=== PATIENT | female | born 1970 | race Caucasian/White ===

== ENCOUNTER 2022-06-26 09:53 | Outpatient (RCR) | payer OTHER, SELFPAY ==
--- NOTE | 2022-06-26 12:14 | PCM.WC.HP ---
History of Present Illness Date of Service: 06/26/22 Chief Complaint: Left distal posterior traumatic hematoma/ulcer History of Wound: 52 year old female presents to the wound healing center for evaluation of her left distal posterior leg ulcer that occurred on 05/31/22 while working at [employer]. 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 She states that it initially has a superficial wound with bruising. She was sent to [facility] for evaluation and they have been monitoring her injury. The bruising became more pronounced a couple days after she was seen at [facility]. She states that it has started to become very painful over the past couple weeks and worsened last week when she developed a black scab and now has redness surrounding the ulcer. She presents today to the wound center for further evaluation. She currently on Bactrim from her PCP for a UTI and she was told it would help with bacterial growth from the ulcer. She is denying and drainage from the ulcer. She initially was treating with hydrogen peroxide and antibiotic ointment. 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 She denies any other medical history. Progress of Wound: Left distal posterior leg ulcer with necrotic tissue present. Unable to stage ulcer. There is redness surrounding the ulcer along with swelling, especially on the lateral aspect of the necrotic tissue. The ulcer and the tissue surrounding the ulcer are very painful to light touch. She does not even want the ulcer measured due to the pain. There is a very small separation on the distal edge of the necrotic tissue that I was able to measure the depth which is 1 cm. Currently no drainage. PFSH Medical History no medical history no medical history Home Medications lansoprazole 15 mg capsule,delayed release (Prevacid) 30 mg PO 02/09/14 [History Last Taken Unknown] tramadol 50 mg tablet mg PO Q4H PRN PRN Pain 02/09/14 [History Last Taken Unknown] cholecalciferol (vitamin D3) 25 mcg (1,000 unit) capsule (Vitamin D3) mcg PO DAILY 06/26/22 [History Last Taken Unknown] ferrous sulfate 325 mg (65 mg iron) tablet (Iron (ferrous sulfate)) 325 mg PO DAILY 06/26/22 [History Last Taken Unknown] fluoxetine 20 mg capsule (Prozac) 20 mg PO DAILY 06/26/22 [History Last Taken Unknown] multivitamin 1 tab PO DAILY 06/26/22 [History Last Taken Unknown] levofloxacin 500 mg tablet 500 mg PO DAILY 14 days #14 tabs 06/27/22 [Rx Last Taken Unknown] Allergy/AdvReac Type Severity Reaction Status Date / Time dicyclomine HCl [From Bentyl] Allergy Other Verified 02/09/14 11:31 Surgical History History of partial gastrectomy Social History Smoking Status: Never smoker ROS Constitutional Constitutional: Reports systems reviewed and no addt'l complaints, except as documented; Denies fatigue, fever(s) or frequent falls Eyes Eyes: Reports none Cardiovascular Cardiovascular: Denies chest pain or dyspnea Respiratory/Chest Respiratory/Chest: Reports none Gastrointestinal Gastrointestinal: Reports as per HPI Genitourinary Genitourinary: Reports other Details: recovering from recent UTI, on bactrim Musculoskeletal Musculoskeletal: Reports extremity pain Integumentary Integumentary: Reports erythema, skin ulcer, skin swelling and wounds Neurologic Neurologic: Reports none Psychiatric Psychiatric: Reports none Endocrine Endocrinology: Reports none Hematologic/Lymphatic Hematologic/Lymphatic: Reports none Allergic/Immunologic Allergic/Immunologic: Reports none Vital Signs Vital Signs Vital Signs: 06/26/22 13:15 Pulse Rate 87 Respiratory Rate 16 Blood Pressure 117/75 Blood Pressure Mean 89 Blood Pressure Source Monitor Blood Pressure Position Sitting Blood Pressure Location Right Arm Oxygen Delivery Method Room Air Weight Weight: 150 lb Body Mass Index (BMI) 26.5 Physical Exam Const alert, oriented x3 and average body habitus General Appearance: cooperative and well kempt HEENT normocephalic Head and Scalp: atraumatic Eyes General Eye: normal appearance of both eyes Neck full ROM Lymph Lymphatic: no lymphedema noted Resp normal respiratory effort, normal air movement and clear to auscultation bilaterally Effort and Inspection: able to speak in complete sentences Cardio regular rate and regular rhythm Peripheral Pulses: dorsalis pedis pulses present left 2+ GI normal to inspection, nondistended, normoactive bowel sounds, soft to palpation and non-tender Back/Spine normal ROM Extremity normal capillary refill Peripheral Pulses: Yes dorsalis pedis pulses present left 2+ Skin Wound Narrative: Left distal posterior leg ulcer with necrotic scabbing in place surrounded by erythema and swelling. Extremely painful to light palpation. She constantly is moving her leg away to prevent it from being touched. There is a separation on the distal aspect of the eschar that able to measure the depth as 1 cm. Neuro oriented x3 and moves all extremities Psych mental status grossly normal, thought process normal and cooperative Debridement Note Debridement Note Wound debrided: distal posterior leg ulcer Laterality: Left Wound Grade/Stage: unstagable No debridement was completed: No debridement was completed today Post-Debridement Measurements and Additional Note: Post-Debridement Measurements/Treatment WC - Nurse 1 - General Ulcer Assessment Start: 06/26/22 13:12 Freq: Status: Active Protocol: TONIOpenBookJena Activity Type Activity Date Activity User E-sign Co-sign Detail Recorded Client Recorded Date Recorded By Document 06/26/22 13:15 [facility] [id number] 06/26/22 13:23 [facility] 06/26/22 13:15 - Today's Visit Information Type of service Follow-up Visit (Physician/NURSE PRACTITIONER ) Arrival Mode Ambulatory Transfer Assistance None Accompanied by Patient Identification Verified (Name & Yes ) Patient Requires Transmission-Based No Precautions Height and Weight Height 5 ft 3 in Weight 150 lb Weight in Pounds 150.0 lbs Weight Measurement Method Stated by Patient Body Mass Index (BMI) 26.5 BMI Classification Overweight BSA - Laura 1.71 Vital Signs Pulse Rate (60-100) 87 Pulse Location Monitor Respiratory Rate (12-18) 16 Respiratory rate source Observation Oxygen Delivery Method Room Air Blood Pressure (90/60-120/80) 117/75 Blood Pressure Mean 89 Source Monitor Position Sitting Blood Pressure Location Right Arm History Since Last Visit- (Skip if this is Patient's initial visit) Left Footwear Regular Shoe Right Footwear Regular Shoe Pain Scale: 0-10 Numeric Is Patient Pain Free? Yes Lower Extremity Assessment/ Foot Assessment/ Toe Nail Assessment Right -Posterior Tibial Palpable Yes -Posterior Tibial Doppler Multiphasic -Dorsalis Pedis Palpable Yes -Dorsalis Pedis Doppler Multiphasic -Extremity Color Pale -Hair Growth on Legs No -Hair Growth on Toes No -Temperature of Extremity Cool -Thick No -Discolored No -Deformed No -Improper Length & Hygeine No Left -Posterior Tibial Palpable Yes -Posterior Tibial Doppler Multiphasic -Dorsalis Pedis Palpable Yes -Dorsalis Pedis Doppler Multiphasic -Extremity Color Pale -Hair Growth on Legs No -Hair Growth on Toes No -Temperature of Extremity Cool -Thick No -Discolored No -Deformed No -Improper Length & Hygeine No Neuropathy Assessment Feet - Top Side and Bottom <Entered> (a) Communication Assessment Preferred language Greek Insurance Associate Required No Able to Read Yes Able to Write Yes Communication Tools None Right Hearing Abillity Normal Left Hearing Abillity Normal Visual Assistive Devices None Teaching Assessment Preferences Verbal,Written, Audio/Visual, Demonstration Barriers to Learning None Readiness To Learn Excellent Willingness to Engage in Self Management High Activies Readiness to Engage in Self Management High Activities Anxiety Level Calm Cooperation Cooperative Perception Coherent Interest in Health Problem Asks Questions Education Importance Acknowledges Need Does Patient Smoke tobacco or other No substances Smoking Status Never smoker Is Patient Diabetic No Functional Assessment Recent Decline in Ability to Perform Denies Any Declines 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 Cultural/Oriental Orthodox Needs that may affect No Treatment Plan Teaching: Wound Center *Welcome to the Wound Center -Person Taught Patient -Teaching Method Discussion -Response to teaching Verbalize understanding Welcome to the Wound Care Center Finnish (a) 1 - + WC - Nurse 1 - General Ulcer Measurement Start: 06/26/22 13:12 Freq: Status: Active Protocol: Activity Type Activity Date Activity User E-sign Co-sign Detail Recorded Client Recorded Date Recorded By Document 06/26/22 13:15 [facility] [id number] 06/26/22 13:23 [facility] 06/26/22 13:15 Wound Center Nurse 1 #1- L LOWER CALF CLUSTER -Combined with other wound No -Current Size (cm) - Length 4.5 -Current Size (cm) - Width 3.4 -Current Size (cm) - Depth 0.1 -Total Square Cm 15.30 -Date of Last Picture (Recall this 06/26/22 field) -Photo Taken Yes -Epithelialization None Present -Tunneling No -Undermining/Tunneling No -Circular Undermining No -Exudate Amt Medium -Exudate Type Serosanguineous -Wound Margin Distinct, Outline Attached -Granulation Amt None Present (0 %) -Slough/Fibrin Yes -Necrosis Amt Large (67-100%) -Necrotic Tissue Type Eschar -Texture (Nilsa-wound Skin Appearance) Assessed, Scarring -Moisture (Nilsa-wound Skin Appearance) Assessed -Color (Nilsa-wound Skin Appearance) Assessed, Erythema -Temperature (Nilsa-wound Skin No Abnormality Appearance) (Pt Warm) -Tenderness on Palpation (Nilsa-wound Yes Skin Appearance) -Ulcer Cleansing Rinsed/ Irrigated with Saline -Foul Odor after Cleansing No -Anesthetic Used 5% Lidocaine Gel -Wound Comment(s) WORKPLACE INJURY- TOW MOTOR RAN INTO HER Right Calf (cm) 35 Right Ankle (cm) 19.7 Left Calf (cm) 35 Left Ankle (cm) 20.2 - Nurse 2 - General Ulcer CM Notes Start: 06/26/22 13:12 Freq: Status: Active Protocol: Activity Type Activity Date Activity User E-sign Co-sign Detail Recorded Client Recorded Date Recorded By Document 06/26/22 13:48 [id number] 06/26/22 14:08 06/26/22 13:48 Wound Center Nurse 2 #1- L LOWER CALF CLUSTER -Correct Patient No -Correct Side, Site, Position No -Correct Procedure No -Procedure Performed No -Wound/Ulcer Outcome Not Healed Pain Scale: 0-10 Numeric Is Patient Pain Free? Yes - Nurse 3 - General Ulcer D/C NN Start: 06/26/22 13:12 Freq: Status: Active Protocol: Activity Type Activity Date Activity User E-sign Co-sign Detail Recorded Client Recorded Date Recorded By Document 06/26/22 14:47 [id number] 06/26/22 14:48 06/26/22 14:47 Wound Care Nurse 3 #1- L LOWER CALF CLUSTER -Ulcer Cleansing Rinsed/ Irrigated with Saline -Foul Odor after Cleansing No -Primary Dressing Applied Hysept ($) -Other Dressing dakins -Primary Dressing Covered/Secured with Dry Gauze & Roll Gauze, Secured with Tape -Other Covering Coban/juan jose Treatment Response Procedure Tolerated Well Pain Scale: 0-10 Numeric Is Patient Pain Free? Yes - Visit Discharge Discharge Condition Stable Ambulatory Status Ambulatory Transportation Private Auto Accompanied by Charges/Coding Visit Charges Office Visits / Consults: 43862 OV L4 Est Assessment/Plan Assessment/Plan (1) Contusion of left lower extremity: CODE(S): S80.12XA - Contusion of left lower leg, initial encounter (2) Abrasion of left lower extremity: CODE(S): S80.812A - Abrasion, left lower leg, initial encounter PLAN: Plan Patient evaluated at the wound center today. No debridement performed due to the amount of discomfort that patient was in. Will start Dakins 0.25% moistened gauze to the necrotic tissue daily covered with dry gauze. She may wash the area daily with soap and water. Place an JUAN JOSE wrap for compression. I suspect she will need an operative debridement. Will attempt to get approval from [facility] for stat consult to Dr. Patel for evaluation for a possible operative debridement. Explained to patient that the process of getting approval for medications and referrals. Instructed her to keep her leg elevated. She is not working this week due to the facility being closed for the holidays but I do not want her working/standing on her leg for long periods of time until she has further evaluation from Dr. Patel. Follow up at the wound center in one week. Greater than 35 minutes spent evaluating, treating, reviewing charts and documenting.
[2022-06-26 13:15] VITALS: BP 117/75; PULSE 87; RESP 16; BMI 26.5
== END 2022-06-30 23:59 | disposition home or self-care (01) ==
LOC: WC 09:53
PROVIDERS: PCP Student in an Organized Health Care Education/Training Program; Visit Provider Nurse Practitioner Family
DX: L97.829 Non-pressure chronic ulcer of other part of left lower leg with unspecified severity (principal); S80.12XS Contusion of left lower leg, sequela; S80.812S Abrasion, left lower leg, sequela; N39.0 Urinary tract infection, site not specified; V83 Occupant of special vehicle mainly used on industrial premises injured in transport accident
CPT/HCPCS: 99214; G0463

== ENCOUNTER → 2022-06-28 | Outpatient (CLI) | payer OTHER, SELFPAY ==
--- NOTE | 2022-06-28 13:13 | RAD_ITS ---
INDICATION: traumatic injury to left distal posterior leg EXAMINATION/TECHNIQUE: X-RAY - LEFT XR Tibia/Fibula 2 Views 2 VIEWS COMPARISON: Left ankle series same date FINDINGS: SOFT TISSUES: Focal soft tissue swelling posterior to the distal tibia with focal skin defect. No radiopaque foreign body. BONES/JOINTS: No acute fracture. Included joint spaces anatomically maintained. No sclerotic or destructive changes observed. RAD/Tibia & Fibula 2 Views IMPRESSION: No acute bony injury. Electronically Signed: Hermelindo Saini MD at 18:24 EST ,
--- NOTE | 2022-06-28 13:13 | RAD_ITS ---
INDICATION: traumatic hematoma distal posterior leg EXAMINATION/TECHNIQUE: X-RAY - LEFT XR Ankle Min 3 Views 3 VIEWS COMPARISON: None. FINDINGS: SOFT TISSUES: Focal soft tissue swelling posterior to the distal tibia and fibula with focal skin defect. No radiopaque foreign body. BONES/JOINTS: No acute fracture. Included joint spaces anatomically maintained. No sclerotic or destructive changes observed. RAD/Ankle min 3 Views IMPRESSION: No acute bony abnormality. Electronically Signed: Hermelindo Saini MD at 18:22 EST ,
== END | disposition home or self-care (01) ==
PROVIDERS: PCP Student in an Organized Health Care Education/Training Program; Referring Provider Nurse Practitioner Family; Visit Provider Nurse Practitioner Family
DX: S80.12XA Contusion of left lower leg, initial encounter (principal); S80.812A Abrasion, left lower leg, initial encounter
CPT/HCPCS: 73590; 73610

== ENCOUNTER 2022-07-05 14:49 | Observation (INO) | payer OTHER, SELFPAY ==
--- NOTE | 2022-07-04 21:52 | HP.PCM_ITS ---
History and Physical Date of Admission: 07/05/22 HISTORY OF PRESENT ILLNESS 52 year old female presents with a worsening traumatic hematoma to her left posterior leg near the ankle that she sustained on 05/31/22 while working at [employer].? She states a tow motor bumped into her and 8 pallets fell and pinched the back of her left leg.? Initially there was some bruising but the skin was intact.? She was seen at [facility] for monitoring her injury. ? The bruising progressively worsened over the next several days and developed overlying skin necrosis.? She denied fever.? She started developing increasing pain as the hematoma increased in size.? During this time she saw her PCP who treated her UTI with Bactrim.? She also started developing some surrounding erythema and was referred to the Wound Center on 06/26/22. ? She denied any drainage from this traumatic hematoma. ? ?At the Wound Center, it was very painful to the touch.? She states it is a burning nerve pain.? Dakin's dressing changes were started.? An x-ray was ordered on 06/28/22. ? It showed focal soft tissue swelling posterior to the distal tibia with focal skin defect. No radiopaque foreign body.? No acute fracture. Included joint spaces anatomically maintained. No sclerotic or destructive changes observed.?Levaquin antibiotics were added because of the risk of developing Pseudomonas which can be destructive to surrounding tissue, i.e., the Achilles tendon.? I was asked to evaluate this patient for surgical options for treatment. 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 Never smoker alcohol intake:? never substance use type:? does not use additional social history:? Does Not Take Aspirin Does Not Take Ibuprofen REVIEW OF SYSTEMS Constitutional -?Denies fatigue, fever(s) or frequent falls? Eyes -?Denies cataracts or glaucoma. Cardiovascular -?Denies chest pain or dyspnea Respiratory/Chest -?Denies shortness of breath or chronic cough.? Gastrointestinal -?Denies nausea, vomiting, diarrhea, or constipation. Genitourinary -?recovering from recent UTI, on bactrim Musculoskeletal -?Reports extremity pain Integumentary -?has traumatic hematoma left posterior leg near the ankle with overlying skin necrosis. Neurologic -?Has burning nerve pain in the area of the hematoma left posterior leg near the ankle.? Psychiatric -?Has depression.? PHYSICAL EXAMINATION General - Alert and Oriented HEENT - PERRL. EOMI.? Throat is clear. Neck - Supple and nontender.? No cervical adenopathy. Lungs - Clear to auscultation. Heart - Regular rate and rhythm. Abdomen - Soft and nondistended. Extremities - FROM. No axillary adenopathy.? Radial pulses are palpable. ? No inguinal adenopathy.? Dorsalis pedis pulses are palpable.? On left posterior leg near the ankle is a hematoma with surrounding erythema.? Overlying skin necrosis.? Tender to palpation.? No purulent drainage.? No fluctuance. Neuro - CN II-XII grossly intact. Psych - Normal mood and affect. ASSESSMENT (1) Traumatic hematoma left posterior leg near the ankle. (2) Skin necrosis. (3) Crushing injury left lower leg. 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 PLAN Medical records reviewed. X-rays reviewed. Patient has a symptomatic hematoma left posterior leg near the ankle that has progressively worsened and developed overlying skin necrosis. There is some surrounding erythema indicative of development of infection.? At present she is on Bactrim and Levaquin. She has increasing burning nerve pain from the crushing component of this injury.? Will start her on Neurontin. It is important to try and minimize swelling which can exacerbate her painful symptomatology. ? Applied an alexis wrap for compression today. She was having some trouble with the Dakin's dressing and she stopped it. Will just continue dry dressing for now.? She needs operative intervention with surgical preparation left posterior leg with incision and drainage and evacuation traumatic infected hematoma along with excisional debridement of overlying skin necrosis.? Will send tissue to Pathology for analysis to rule out carcinoma and to Microbiology for culture.? A positive culture will necessitate antibiotic therapy. Will schedule the surgery for next week.? It will be done under general anesthesia with a surgical observation overnight stay in the hospital. Will keep her off work for now to allow time for her surgery and to allow her to heal. After the surgery, the wound will be left open and wound care started with the VAC. After discharge, she will followup at the Wound Center. If there is a plateau during the healing process, then can proceed with secondary wound closure with skin grafting.? Anticipate 4-6 weeks of the VAC before deciding on the timing for the skin graft. I anticipate increased metabolic demands from the injury and the surgical wound.? Will check a Prealbumin and encourage nutritional supplementation with protein to help the healing process. At the time of the surgery, will order a CT scan to look for the extent of the injury. She can ambulate.? Try to minimize standing.? Keep left leg elevated when sitting. Patient was informed of the risks and complications of the procedure including alternatives to surgery.? These were discussed with the patient personally.? Patient voices understanding and wishes to proceed. Some of the risks and complications were included in a form from the [employer]. 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
[2022-07-05] VITALS (13 sets, daily range): BP systolic 96–123; BP diastolic 65–84; PULSE 78–110; RESP 16–18; TEMP 36.3–36.7; O2SAT 94–98; BMI 26.3
--- NOTE | 2022-07-05 | THRO_PTH ---
PATIENT: ARTI BRAVO LOC: [facility] U#:[id number] AGE/SX: 52/F ROOM: [facility] RE07/05/[address]: Dr. Marvin Patel MD : 1970 BED: 1 DIS: 07/07/2022 SPEC #: [id number] RECD: 07/05/22 15:35 STATUS: SOUJena REQ #: [id number] LEONOR: 07/05/22 00:[address]: Marvin Patel DEPT: SURGICAL PATHOLOGY RECD BY: Pj Ayala ENTERED: 07/06/22 10:36 SP TYPE: THROMBUS OTHR DR: Dr. John Montgomery, DO Tissues: BLOOD CLOT, NOS Procedures: Surgery Specimen Level IV HEADER OPERATION: Surgical preparation posterior leg by ankle with incision PRE-OP DIAGNOSIS: Contusion of left lower extremity, skin necrosis, crushing injury of left lower leg TISSUE SUBMITTED: Traumatic infected hematoma left posterior leg near ankle MICROSCOPIC DIAGNOSIS Skin and soft tissue of left posterior leg/ankle, excision: Subcutaneous organizing hematoma, fat necrosis and associated reactive change. AM:brionna 07/09/2022 MICROSCOPIC DESCRIPTION Slides are reviewed. GROSS DESCRIPTION Received in fixative is one container labeled with the patient's name and designated left posterior leg near ankle. The specimen consists of two irregular fragments of skin with attached yellow fibrofatty tissue ranging in size from 3.5 to 5 cm. Serial sections do not reveal mass lesions. Acquisition Associate sections are submitted in one cassette. / AM:brionna 07/06/2022 TC:5 CPT: 02102
[2022-07-05] MEDS: Lactated Ringers 1,000 ML 15 ML IV ×2 (12:18→15:51)
[2022-07-05] MEDS: Vancomycin IV 1,000 MG/200 ML BAG 200 MG IV (12:18)
[2022-07-05] MEDS: levoFLOXacin IV 500 MG/100 ML BAG 100 MG IV (13:40)
[2022-07-05] MEDS: Lidocaine 2% /Epi 1:100 (20ml) 20 ML VIAL (13:42)
--- NOTE | 2022-07-05 14:47 | PCM.OPRPT ---
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 (2) Skin necrosis. (3) Crushing injury left lower leg. 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 Post-Operative Diagnosis: (1) Traumatic hematoma abscess left posterior leg near the ankle. (2) Skin necrosis. (3) Crushing injury left lower leg. 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 Surgery/Procedure Performed:: Surgical preparation left posterior leg with incision and drainage and evacuation and excisional debridement traumatic hematoma abscess with overlying skin necrosis (18 cm2). Description of Surgical Findings:: 52 year old female presents with a worsening traumatic hematoma to her left posterior leg near the ankle that she sustained on 05/31/22 while working at [employer] She states a tow motor bumped into her and 8 pallets fell and pinched the back of her left leg.? Initially there was some bruising but the skin was intact.? She was seen at [facility] for monitoring her injury. ? The bruising progressively worsened over the next several days and developed overlying skin necrosis.? She denied fever.? She started developing increasing pain as the hematoma increased in size.? During this time she saw her PCP who treated her UTI with Bactrim.? She also started developing some surrounding erythema and was referred to the Wound Center on 06/26/22. ? She denied any drainage from this traumatic hematoma. ? ?At the Wound Center, it was very painful to the touch.? She states it is a burning nerve pain.? Dakin's dressing changes were started.? An x-ray was ordered on 06/28/22. ? It showed focal soft tissue swelling posterior to the distal tibia with focal skin defect. No radiopaque foreign body.? No acute fracture. Included joint spaces anatomically maintained. No sclerotic or destructive changes observed.?Levaquin antibiotics were added because of the risk of developing Pseudomonas which can be destructive to surrounding tissue, i.e., the Achilles tendon.? I was asked to evaluate this patient for surgical options for treatment. Patient was informed of the risks and complications of the procedure including alternatives to surgery. These were discussed with the patient personally. Patient voices understanding and wishes to proceed. Some of the risks and complications were included in a form from the [employer]. Potential risks and complications included but not inclusive of bleeding, infection seroma, hematoma, bruising, swelling, prolonged need for drains, loss of sensation to skin, partial or complete loss of skin flap and/or nipple graft, wound breakdown, need for wound care, poor scarring, poor aesthetic outcome, intra operative cardiac or neurologic events, DVT, PE, and reaction to anesthesia. Size of wound left posterior leg near the ankle - 4 x 4.5 x 1 cm. 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 Drains: None. Estimated Blood Loss (mL): 20. Description of Procedure: Patient was taken to OR in supine position and was placed under general anesthesia. She was then placed in the prone position. The left posterior leg was prepped and draped in the usual fashion. SCD was placed for DVT prophylaxis on the right leg. Perioperative antibiotics were given intravenously. Using xylocaine with epinephrine, the traumatic necrotic hematoma abscess was infiltrated. After waiting 5 minutes for the anesthetic to take effect, I made a circular incision around the edges of the overlyng skin necrosis. The hematoma looked creamy as is commonly seen in infections. Some fat necrosis was seen and excised and debrided. The extent of the hematoma abscess injury was down to the achilles tendon. The infection was not adherent to the tendon. The tissue was sent to Pathology for analysis to rule out carcinoma and to Microbiology for culture. A positive culture will necessitate antibiotic therapy. The size of the wound left posterior leg near the ankle after incision and drainage and evacuation and excisional debridement traumatic hematoma abscess with overlying skin necrosis was 4 x 4.5 x 1 cm or 18 cm2. The wound was irrigated with saline. Hemostasis was obtained with electrocautery. The wound was dressed with Mepitel nonadherent dressing followed by Kerlix gauze and Betadine. This was followed with a dry Kerlix gauze and a compression alexis wrap. Patient tolerated the procedure well and was sent to PACU in satisfactory condition. Patient will be sent upstairs for continued postop care. The VAC will be applied tomorrow at 150 mmHg continuous suction. After discharge, she will followup at the Wound Center. If there is a plateau in the healing process, then can proceed with delayed closure with skin grafting. Grafts/Implants Used: None. Procedure Start Time: 13:42 Procedure Stop Time: 13:57 Complications None. Admit VTE Documentation VTE Present on Admission: No VTE Mechan Device Prophylaxis: SCD's VTE Pharm Prophylaxis ordered?: Yes Addendum Addendum: Surgery Charges CPT - 22835 ICD-10 - I96, S80.12xA, S87.82xA, L02.416, Y92.63 52068 S80.12xA, I96, S87.82xA, L02.416, Y92.63
[2022-07-05 18:25] LABS: Anion Gap 4 (5-15); BUN 17 mg/dL (7-18); BUN/Creat Ratio 18.2 RATIO (10-20); Calcium,Total 9.3 mg/dL (8.5-10.1); Chloride 108 mmol/L (98-107); Creatinine, Serum 0.93 mg/dL (0.55-1.02); EST Glomerular Filtration Rate 67 mL/min (>60); Est Glom Filt Rate - Afr Amer 81 mL/min (>60); Glucose 187 mg/dL (74-106); Sodium Level 141 mmol/L (136-145)
[2022-07-05] MEDS: oxyCODONE 5 MG Tablet 10 MG PO (20:51)
--- NOTE | 2022-07-05 21:23 | PCM.RX.CS ---
Consult Pharmacy has been consulted to manage selected antiobiotic: Vancomycin Type of Consult: New start Suspected Infection: Other Labs: Sodium 141 mmol/L (136-145) 07/05/22 17:35 Potassium 4.0 mmol/L (3.5-5.1) 07/05/22 17:35 Chloride 108 mmol/L (98-107) H 07/05/22 17:35 Carbon Dioxide 29.0 mmol/L (21.0-32.0) 07/05/22 17:35 Anion Gap 4 (5-15) L 07/05/22 17:35 BUN 17 mg/dL (7-18) 07/05/22 17:35 Creatinine 0.93 mg/dL (0.55-1.02) 07/05/22 17:35 Est GFR (MDRD) Af Amer 81 mL/min (>60) 07/05/22 17:35 Est GFR (MDRD) Non-Af 67 mL/min (>60) 07/05/22 17:35 BUN/Creatinine Ratio 18.2 RATIO (10-20) 07/05/22 17:35 Glucose 187 mg/dL (74-106) H 07/05/22 17:35 Microbiology: Microbiology 07/05/22 14:26 Tissue - Leg, Left Gram Stain - Final Goal Trough: 10-15 mcg/mL Pharmacy Plan for Drug Dosing: NEW START IV VANCOMYCIN Consulting Physician: Dr. Patel Indication: Post-op abx s/p debridement Goal Trough: 10-15 SrCr: 0.93 CrCl: 59 mL/min Comments: 1g IV pre-op administered 07/05/22 @1300 Vancomycin Dose: 500mg IV Q12hr to start 07/06/22 @0100 Pending Level: 07/07/22 @0030, prior to 4th total dose per protocol Pharmacy Service will continue to monitor and adjust dosing as required.
[2022-07-05] MEDS: Juven (unflavored) Packet 1 PACKET PO (21:43)
[2022-07-05] MEDS: Docusate Sodium 100 MG Capsule PO (21:52)
[2022-07-05] MEDS: Gabapentin 300 MG Capsule PO (21:52)
[2022-07-06] MEDS: Vancomycin IV 500 MG/100 ML BAG 100 MG IV ×2 (01:05→12:41)
[2022-07-06 01:08] VITALS: BP 93/64; PULSE 94; RESP 18; TEMP 36.7; O2SAT 96
[2022-07-06 04:31] VITALS: BP 99/68; PULSE 85; RESP 18; TEMP 36.7; O2SAT 95
[2022-07-06] MEDS: oxyCODONE 5 MG Tablet 10 MG PO ×4 (04:35→22:38)
[2022-07-06 05:28] LABS: Hematocrit 36.7 % (37-47); Hemoglobin 11.8 g/dL (12.0-15.0); Mean Corp Hgb Conc 32.2 g/dL (32-36); Mean Corpuscular Volume 93.4 fL (81-99); Mean Platelet Vol. 11.3 fl (6.2-12.0); Platelet Count 251 K/mm3 (150-450); RBC Distribution Width CV 13.1 % (11.6-14.6); RBC Distribution Width SD 44.4 fl (35.1-43.9); Red Blood Count 3.93 M/mm3 (4.2-5.4); White Blood Count 9.2 K/mm3 (4.4-11.0)
[2022-07-06 06:01] LABS: Anion Gap 8 (5-15); BUN 16 mg/dL (7-18); BUN/Creat Ratio 19.9 RATIO (10-20); Calcium,Total 8.7 mg/dL (8.5-10.1); Chloride 106 mmol/L (98-107); EST Glomerular Filtration Rate 80 mL/min (>60); Est Glom Filt Rate - Afr Amer 96 mL/min (>60); Estimated Creatinine Clearance 68.82 ml/min; Glucose 179 mg/dL (74-106); Potassium 3.9 mmol/L (3.5-5.1); Prealbumin 25.1 mg/dL (20.0-40.0); Sodium Level 140 mmol/L (136-145)
[2022-07-06 07:27] VITALS: BP 97/69; PULSE 68; RESP 16; TEMP 36.8; O2SAT 98
[2022-07-06] MEDS: HYDROmorphone 1 MG/ML Syringe IV (07:43)
[2022-07-06] MEDS: Multivitamins,Therapeutic Tablet 1 TABLET PO (07:45)
--- NOTE | 2022-07-06 08:34 | WOUNDNOTE ---
wound photo: left posterior lower leg
--- NOTE | 2022-07-06 08:59 | CT_ITS ---
STUDY: CT LEFT FEMUR WITHOUT CONTRAST REASON FOR EXAM: Female, 52 years old. Hematoma and abscess in posterior left leg. RADIATION DOSAGE (If Supplied By Facility): CTDIvol = ( 15.35 ) mGy, DLP = ( 584.03 ) mGycm TECHNIQUE: Transaxial CT imaging of the femur was performed. Sagittal and coronal images were reconstructed. Individualized dose optimization techniques were used for this CT. COMPARISON: X-rays of the left ankle and left tibia/fibula performed June 28, 2022. FINDINGS: Large ulceration on the posterior aspect of the lower extremity originating approximately 5.2 cm above the tibiotalar joint. Ulceration extends to the posterior compartmental musculature and is approximately 3.3 cm proximal to distal and 3.2 cm medial to lateral. Irregularity of the soft tissues proximal and distal to the ulceration. Soft tissue gas adjacent to the posterior compartment superior and inferior to the ulceration. No bony erosion. CT/Extremity Lower without Contra IMPRESSION: Large posterior deep ulceration in the posterior aspect of the distal lower extremity adjacent to the tibia as described. See discussion above. Minimal soft tissue gas. No bone erosion to suggest osteomyelitis. Electronically Signed: David Robles, at 11:51 EST ,
[2022-07-06] MEDS: Docusate Sodium 100 MG Capsule PO ×2 (10:28→21:58)
[2022-07-06] MEDS: levoFLOXacin IV 500 MG/100 ML BAG 100 MG IV (10:29)
[2022-07-06] MEDS: Enoxaparin 40 MG/0.4 ML Syringe SC (10:30)
[2022-07-06] MEDS: FLUoxetine 20 MG Capsule PO (10:30)
[2022-07-06] MEDS: Gabapentin 300 MG Capsule PO ×2 (10:37→21:57)
[2022-07-06] MEDS: Ensure Plus High Protein 120 ML LIQUID PO ×4 (10:38→21:57)
--- NOTE | 2022-07-06 12:39 | CASEMGMT ---
Addendum entered by Maria Teresa Vaz 07/06/22 15:16: Received approved C-9 for HHC and wound vac. Notified wound nurse. TC to Lynsey Johnson, pt has a C appt on Saturday at 1pm, requests HHC to start on Saturday. TC to Nelda at [facility] to make aware. Pt is also aware. Addendum entered by Maria Teresa Vaz 07/06/22 13:09: Received tc from Nelda at [facility], they are able to accept pt for SOC on Saturday. She is aware this may be moved back until Saturday if physician wants pt to see the C on Saturday. Will update her when this is known. Pt is aware that C accepted. 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 Pt states she prefers a C agency in [place]. Provided her with a list of agencies. She chose [facility] followed by [facility]. TC to [facility] rep Laly at [phone]. She states she will be the person to approve any services for pt. Made aware for request of HHC and wound vac. She requests a C-9 be completed and faxed to her to [phone]. C-9 completed and signed. Faxed at this time to Laly with clinical records. Updated Kamila wound nurse as well. TC to Nelda at [facility], referral made. Will await acceptance.
[2022-07-06 13:26] VITALS: BP 89/47; PULSE 89; RESP 16; TEMP 36.8; O2SAT 97
--- NOTE | 2022-07-06 15:10 | PN.SURG_ITS ---
Subjective Subjective Postop #1 Patient sitting up in bed. She states she is not having good pain control. She can not tolerate anyone ayan kari leg. She states she is having difficulty standing and walking on her leg because the pain is too severe. She is very concerned about going home today because her pain is not well controlled. Objective Data Objective Data Vital Signs: Vital Signs Temp Pulse Resp BP Pulse Ox O2 Del Method 98.2 F 89 16 89/47 L 97 Room Air 07/06/22 13:26 07/06/22 13:26 07/06/22 13:26 07/06/22 13:26 07/06/22 13:07/06/22 13:26 Oxygen Delivery Method Room Air Weight: 148 lb 12.992 oz Body Mass Index (BMI) 26.3 Intake & Output: Intake and Output for Last 24 Hours 07/04/22 07/05/22 07/06/22 23:59 23:59 23:59 Intake Total 1700 / 1700 738 / 738 Output Total 500 / 500 700 / 700 Balance 1200 / 1200 38 / 38 Lab / Micro Data Result Diagrams: 07/06/22 05:16 07/06/22 05:16 Labs: Laboratory Results - last 24 hr 07/05/22 17:35: Sodium 141, Potassium 4.0, Chloride 108 H, Carbon Dioxide 29.0, Anion Gap 4 L, BUN 17, Creatinine 0.93, Estim Creat Clear Calc 59.20, Est GFR (MDRD) Af Amer 81, Est GFR (MDRD) Non-Af 67, BUN/Creatinine Ratio 18.2, Glucose 187 H, Calcium 9.3 07/06/22 05:16: WBC 9.2, RBC 3.93 L, Hgb 11.8 L, Hct 36.7 L, MCV 93.4, MCH 30.0, MCHC 32.2, RDW Std Deviation 44.4 H, RDW Coeff of Yulissa 13.1, Plt Count 251, MPV 11.3 07/06/22 05:16: Sodium 140, Potassium 3.9, Chloride 106, Carbon Dioxide 26.0, Anion Gap 8, BUN 16, Creatinine 0.80, Estim Creat Clear Calc 68.82, Est GFR (MDRD) Af Amer 96, Est GFR (MDRD) Non-Af 80, BUN/Creatinine Ratio 19.9, Glucose 179 H, Calcium 8.7, Prealbumin 25.1 Micro: Microbiology 07/05/22 14:26 Tissue - Leg, Left Gram Stain - Final 07/05/22 14:26 Tissue - Leg, Left Wound Culture - Preliminary Gram positive organism Radiography Diagnostic Testing: Radiology Impression Lower Extremity CT 07/06/22 08:59 IMPRESSION: Large posterior deep ulceration in the posterior aspect of the distal lower extremity adjacent to the tibia as described. See discussion above. Minimal soft tissue gas. No bone erosion to suggest osteomyelitis. Electronically Signed: David Robles, at 11:51 EST , Physical Exam Narrative PHYSICAL EXAMINATION General - Alert and oriented. Lungs- Able to speak in sentences. Extremities - Left posterior ulcer dressing is intact. No active bleeding. Pedal pulses palp bilaterally. Neuro - CN II-XII grossly intact. Psych - Very anxious about going home. She is not feeling comfortable about leaving due to her pain not being under control. 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 She states she is not getting good pain control from the Oxycodone. Had an extensive conversation about her pain and how we could better control it. She states her pain is severe when she puts pressure on her left foot. She states that she has not been walking on it except to get to the bedside commode. Encouraged her to start to ambulate. Will have PT come evaluate her ambulation, to see if she needs assistance with ambulation. Will order Acetaminophen 650 mg every 6 hours prn for pain. This can be give at the same time as the Oxy to help with pain control. Operative dressing changed today. Ulcer is stable with no active bleeding. She currently has a NS moistened dressing covered with ABD and kerlix with JUAN JOSE wrap for compression. Waiting for approval for her wound VAC. Once the VAC is approved, the vac will be at 150 mmHg and she will have VAC changes 3 times a week and have home health to assist with this. She is on Vancomycin and is getting itchy after the infusion, will prescribe Diphenhydramine 25 mg BID prn for itchiness. Continue Levofloxacin. Prealbumin 25.1. CT of her left femur from today showed Large deep ulceration on the posterior aspect of the distal lower extremity adjacent to the tibia. Minimal soft tissue gas. No bone erosion to suggest osteomyelitis. We will keep her overnight to help get her pain under better control and get her ambulating better. Plan to discharge home tomorrow. She will follow up on Saturday at the wound center at 1300. Charges/Coding Procedures Integumentary [id number]: [id number] Global Visit
[2022-07-06 16:17] VITALS: BP 100/65; PULSE 85; RESP 16; TEMP 36.8; O2SAT 98
[2022-07-06] MEDS: Acetaminophen 325 MG Tablet 650 MG PO ×2 (16:42→22:37)
[2022-07-06 19:30] VITALS: BP 91/66; PULSE 87; RESP 16; TEMP 36.7; O2SAT 95
[2022-07-07] MEDS: Vancomycin IV 500 MG/100 ML BAG 100 MG IV (00:37)
[2022-07-07 01:21] LABS: Vancomycin, Trough Level 7.5 ug/mL (5.0-15.0)
--- NOTE | 2022-07-07 01:35 | PCM.RX.CS ---
Consult Pharmacy has been consulted to manage selected antiobiotic: Vancomycin Type of Consult: Follow-up Prior Doses of Antibiotics Received/Current Regimen: Medications Vancomycin HCl 750 mg/ Sodium (Chloride) 265 mls @ 250 mls/hr IV Q12H RONDA Vancomycin HCl () 500 mg in 100 mls @ 100 mls/hr IV Q12H RONDA Stop: 07/07/22 02:00 Last Admin: 07/07/22 00:37 Dose: 100 mls/hr Labs: Sodium 140 mmol/L (136-145) 07/06/22 05:16 Potassium 3.9 mmol/L (3.5-5.1) 07/06/22 05:16 Chloride 106 mmol/L (98-107) 07/06/22 05:16 Carbon Dioxide 26.0 mmol/L (21.0-32.0) 07/06/22 05:16 Anion Gap 8 (5-15) 07/06/22 05:16 BUN 16 mg/dL (7-18) 07/06/22 05:16 Creatinine 0.80 mg/dL (0.55-1.02) 07/06/22 05:16 Est GFR (MDRD) Af Amer 96 mL/min (>60) 07/06/22 05:16 Est GFR (MDRD) Non-Af 80 mL/min (>60) 07/06/22 05:16 BUN/Creatinine Ratio 19.9 RATIO (10-20) 07/06/22 05:16 Glucose 179 mg/dL (74-106) H 07/06/22 05:16 Vancomycin Trough 7.5 ug/mL (5.0-15.0) 07/07/22 00:37 Microbiology: Microbiology 07/05/22 14:26 Tissue - Leg, Left Gram Stain - Final 07/05/22 14:26 Tissue - Leg, Left Wound Culture - Preliminary Gram positive organism Weight used for dosin.5 kg Estimated Creatinine Clearance: 69 Goal Trough: 10-15 mcg/mL Pharmacy Plan for Drug Dosing: Vancomycin trough level of 7.5 was below the target range of 10-15. Will increase dosing to 750mg q12h, and re-draw a trough level prior to 4th dose of the new regimen. Pharmacy Service will continue to monitor and adjust dosing as required. Follow-Up Labs: Trough Vancomycin Labs to be done on [date and time ordered]: 07/09/22 @0000
[2022-07-07 04:30] VITALS: BP 99/71; PULSE 97; RESP 16; TEMP 36.6; O2SAT 99
[2022-07-07] MEDS: Acetaminophen 325 MG Tablet 650 MG PO (04:34)
[2022-07-07] MEDS: Multivitamins,Therapeutic Tablet 1 TABLET PO (08:05)
[2022-07-07] MEDS: oxyCODONE 5 MG Tablet 10 MG PO (08:05)
[2022-07-07] MEDS: Juven (unflavored) Packet 1 PACKET PO (08:05)
[2022-07-07 08:26] VITALS: BP 94/61; PULSE 83; RESP 16; TEMP 36.9; O2SAT 97
[2022-07-07] MEDS: levoFLOXacin IV 500 MG/100 ML BAG 100 MG IV (10:12)
[2022-07-07] MEDS: FLUoxetine 20 MG Capsule PO (10:15)
[2022-07-07] MEDS: Docusate Sodium 100 MG Capsule PO (10:15)
[2022-07-07] MEDS: Gabapentin 300 MG Capsule PO (10:15)
[2022-07-07] MEDS: Ensure Plus High Protein 120 ML LIQUID PO (10:15)
[2022-07-07] MEDS: Enoxaparin 40 MG/0.4 ML Syringe SC (10:16)
--- NOTE | 2022-07-07 10:52 | PCM.DC ---
Discharge Instructions Diet Discharge Diet: No restrictions (encourage high protein diet) Activity Discharge Activity: May Shower (if cover dressing with plastic bag) May resume sexual activity in: No Restrictions Weight Bearing Status: Weight bearing as tolerated Keep extremity elevated above heart level: Operative Extremity Dressing / Incision Call your doctor if your incision/area has: Continuous Slow Oozing, Sudden Increased Bleeding, Increased Pain/ Swelling, Increased Redness, Foul Smelling Discharge and Swelling at the incision site Call your doctor if you observe: Fever of 101 or Higher, Inability to have a bowel movement, Shortness of breath, Chest pain, Calf discomfort and Uncontrolled pain Change Dressing in: do not change dressing Remove Dressing in: leave in place till F/U Additional Dressing/Incision Instructions:: If wound VAC is approved, VAC will be at 150 mmHg. VAC dressing changes will be -W-. If VAC is not approved before going home, will place Saline moistened gauze dressing covered with ABD, Kerlix and JUAN JOSE wrap for compression. Follow Up Care Please Follow Up With: Lynsey Johnson NP, [employer] When: Saturday06/08/22 at 1:00 pm at the wound center Test Results: Test results from this visit will be discussed in further detail at your follow-up appointment, if applicable. Discharge Plan Admission Admit Date/Time: 07/05/22 14:49 Attending Provider: Marvin Patel Primary Care Provider: John Montgomery Discharge Orders/Prescriptions Prescriptions: New docusate sodium 100 mg Capsule 100 mg PO DAILY 15 Days Qty: 15 0RF amoxicillin-pot clavulanate 875-125 mg tablet 1 tab PO Q12H 14 Days Qty: 28 1RF L.acidoph,saliva-B.bif-S.therm [Acidophilus Probiotic Blend] 175 mg capsule 1 cap PO DAILY 30 Days Qty: 30 0RF oxycodone-acetaminophen [Percocet] 5-325 mg tablet 1 tab PO Q4H PRN (Reason: pain (scale score 7-10)) 7 Days Qty: 40 0RF diazepam [Valium] 5 mg tablet 5 mg PO TID PRN (Reason: muscle spasm) 7 Days Qty: 20 0RF Continued gabapentin 300 mg capsule 300 mg PO BID Qty: 60 1RF multivitamin Tablet 1 tab PO DAILY fluoxetine [Prozac] 20 mg Capsule 20 mg PO DAILY Discontinued levofloxacin 500 mg tablet 500 mg PO DAILY 14 Days Qty: 14 0RF Referrals / Follow Up: John Montgomery DO [Primary Care Provider] - Disposition Disposition (needs filled in before D/C Order can be placed): Home Health Service
--- NOTE | 2022-07-07 11:10 | PCM.PN.SRG ---
Subjective Subjective Postop #2 Patient states her pain is better controlled today. She states she is having pain when placing full weight on her left foot/leg. She is able to ambulate with a walker. Objective Data Objective Data Vital Signs: Vital Signs Temp Pulse Resp BP Pulse Ox O2 Del Method 98.5 F 83 16 94/61 97 Room Air 07/07/22 08:26 07/07/22 08:26 07/07/22 08:26 07/07/22 08:26 07/07/22 08:26 07/07/22 08:32 Oxygen Delivery Method Room Air Weight: 148 lb 12.992 oz Body Mass Index (BMI) 26.3 Intake & Output: Intake and Output for Last 24 Hours 07/05/22 07/06/22 07/07/22 23:59 23:59 23:59 Intake Total 1700 / 1700 738 / 738 550 / 550 Output Total 500 / 500 900 / 900 300 / 300 Balance 1200 / 1200 -162 / -162 250 / 250 Lab / Micro Data Result Diagrams: 07/06/22 05:16 07/06/22 05:16 Labs: Laboratory Results - last 24 hr 07/07/22 00:37: Vancomycin Trough 7.5 Micro: Microbiology 07/05/22 14:26 Tissue - Leg, Left Gram Stain - Final 07/05/22 14:26 Tissue - Leg, Left Wound Culture - Final Enterococcus faecalis Radiography Diagnostic Testing: Radiology Impression Lower Extremity CT 07/06/22 08:59 IMPRESSION: Large posterior deep ulceration in the posterior aspect of the distal lower extremity adjacent to the tibia as described. See discussion above. Minimal soft tissue gas. No bone erosion to suggest osteomyelitis. Electronically Signed: David , at 11:51 EST , Physical Exam Narrative PHYSICAL EXAMINATION General - Alert and oriented. Lungs- Able to speak in sentences. Extremities - Left posterior ulcer dressing is intact. No active bleeding. Pedal pulses palp bilaterally. Neuro - CN II-XII grossly intact. Psych - Patient anxious about wound care and feeling overwhelmed. 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 Waiting for approval from [facility] for wound VAC. Once VAC is approved, the VAC will be at 150 mmHg and she will have VAC changes 3 times a week, with assistance of home health. If not approved, will send her home on Saline moistened gauze dressing topped with ABD, wrap with kerlix. JUAN JOSE wrap for compression. Her pain is better controlled today. She is ambulating with walker. Having difficulty with full weightbearing to her left foot/leg. Prescription given for walker. Operative culture positive for Enterococcus faecalis. Will stop her Levaquin and discharge her home on Augmentin 875 po BID x 14 days. Will also start her on Probiotic while on the antibiotic. For pain, she will be prescribed Percocet 5 mg prn for pain control. For muscle spasms Valium 5 mg TID PRN. Instructed her not to take the percocet or the valium at the same time. She also may start taking Ibuprofen 600 mg every 6 hours as needed for pain and inflammation. Prealbumin 25.1. Encouraged increase protein intake. May need to supplement protein. CT of her left femur from today showed Large deep ulceration on the posterior aspect of the distal lower extremity adjacent to the tibia. Minimal soft tissue gas. No bone erosion to suggest osteomyelitis. Discharge home today. Charges/Coding Procedures Integumentary 111xxx-113xx: 11737 Global Visit
--- NOTE | 2022-07-07 11:23 | CASEMGMT ---
KEVEN SCHROEDER notified from [employer] that pt needs FWW. Pt is agreeable for this to go through her regular insurance as there is not a C-9. KEVEN SCHROEDER in to pt room, pt provided with a verbal local DME list, pt chooses [employer]. TC to drying and winding supervisor for delivery of FWW, green sheet on chart.
--- NOTE | 2022-07-07 15:59 | DS.PCM_ITS ---
Providers Date of Admission: 07/05/22 Date of Discharge: 07/07/22 Primary Care Physician: Dr. 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(s): Y92.63 - Factory as the place of occurrence of the external cause Medications at Discharge Home Medications fluoxetine 20 mg capsule (Prozac) 20 mg PO DAILY 06/26/22 multivitamin 1 tab PO DAILY 06/26/22 gabapentin 300 mg capsule 300 mg PO BID #60 caps 06/28/22 L.acidophil,salivari-Bifido bifidum-Strep thermoph 175 mg capsule (Acidophilus Probiotic Blend) 1 cap PO DAILY 30 days #30 caps 07/07/22 amoxicillin 875 mg-potassium clavulanate 125 mg tablet 1 tab PO Q12H 14 days #28 tabs 07/07/22 docusate sodium 100 mg capsule 100 mg PO DAILY constipation 15 days #15 caps 07/07/22 oxycodone-acetaminophen 5 mg-325 mg tablet (Percocet) 1 tab PO Q4H PRN pain (scale score 7-10) 7 days #40 tabs 07/07/22 Hospital Course Operations - (07/05/22 - Surgical preparation left posterior leg with incision and drainage and evacuation and excisional debridement traumatic hematoma abscess with overlying skin necrosis (18 cm2).) Procedures None and Wound vac placement (wound vac approval pending.) Summary of Care Provided Minutes Spent on Discharge: 40 Hospital Course: ?52 year old female presents with a worsening traumatic hematoma to her left posterior leg near the ankle that she sustained on 05/31/22 while working at [employer].? She states a tow motor bumped into her and 8 pallets fell and pinched the back of her left leg.? Initially there was some bruising but the skin was intact.? She was seen at [facility] for monitoring her injury. ? The bruising progressively worsened over the next several days and developed overlying skin necrosis.? She denied fever.? She started developing increasing pain as the hematoma increased in size.? During this time she saw her PCP who treated her UTI with Bactrim.? She also started developing some surrounding erythema and was referred to the Wound Center on 06/26/22. ? She denied any drainage from this traumatic hematoma. ? ?At the Wound Center, it was very painful to the touch.? She states it is a burning nerve pain.? Dakin's dressing changes were started and she stopped them because of the pain.? An x-ray was ordered on 06/28/22. ? It showed focal soft tissue swelling posterior to the distal tibia with focal skin defect. No radiopaque foreign body.? No acute fracture. Included joint spaces anatomically maintained. No sclerotic or destructive changes observed. ?Levaquin antibiotics were added because of the risk of developing Pseudomonas which can be destructive to surrounding tissue, i.e., the Achilles tendon.? Neurontin was started to help with the burning nerve pain. I was asked to evaluate this patient for surgical options for treatment. She was taken to the operating room on 07/05/22 where she underwent surgical preparation left posterior leg with incision and drainage and evacuation and excisional debridement traumatic hematoma abscess with overlying skin necrosis (18 cm2). She tolerated the procedure well. She was afebrile during her hospital stay. The next day the dressing change was very painful and she felt overwhelmed. The wound was clean with no active bleeding noted. It was very difficult for her to put weight on her left leg secondary to the pain. She was unsteady on her feet with attempts at ambulation. We kept her one more night so she could become more steady on her feet with ambulation. She needed a walker for her ambulation and will order one for home use. Postop labs showed WBC was 9.2, Hgb was 11.8, Potassium was 3.9, BUN/Creatinine was 16/0.80, Prealbumin was 25.1 (encourage nutritional supplementation with protein to help the healing process), Glucose was 179 (probably from the stress of the injury and the surgery). CT was done which showed large ulceration on the posterior aspect of the lower extremity originating approximately 5.2 cm above the tibiotalar joint. Ulceration extends to the posterior compartmental musculature and is approximately 3.3 cm proximal to distal and 3.2 cm medial to lateral. Irregularity of the soft tissues proximal and distal to the ulceration. Soft tissue gas adjacent to the posterior compartment superior and inferior to the ulceration. No bony erosion. On the second postop day, she was more steady on her feet with ambulation with the walker. Full weightbearing has been difficult secondary to the pain. She was discharged home in satisfactory condition. Awaiting vac approval. So will send home on saline dressing changes daily topped with ABD pad, Kerlix wrap, and an juan jose wrap for compression. She can get the wound wet with soap and water at the time of the dressing change. Operative culture showed Enterococcus faecalis. The Levaquin was stopped and she will be sent home on Augmentin. Anaerobic culture is pending at discharge. Pathology is pending at discharge. Scripts were written for Augmentin for 2 weeks (will reassess at the Wound Center to see if additional weeks are necessary up to 6 weeks), Acidophilus Probiotic, Percocet for pain (40 tabs), and Colace. Her glucose was 179. Probably due to stress from the injury and the surgery. Will repeat in 2 weeks. If still elevated, will have her PCP evaluate for possible diabetes. Will keep her left leg elevated when sitting. Will minimize standing. Followup at the Wound Center on 07/09/22, at 100 pm. Will apply the vac once it is approved. Physical Exam Narrative General - Alert and oriented. HEENT - PERRL. EOMI. Neck - Supple and nontender. Abdomen - Soft and nondistended. Extremities - Left posterior ulcer dressing is intact. No active bleeding. Pedal pulses palp bilaterally. Awaiting vac approval. Neuro - CN II-XII grossly intact. Psych - Patient anxious about wound care and feeling overwhelmed. Weight / BMI Weight Weight: 148 lb 12.992 oz Body Mass Index (BMI) 26.3 ABG / Lab / Microbiology Data Attestation: I reviewed the patient's lab results. Results Narrative: Glucose is 179. Probably due to stress of the injury and the surgery. Will repeat in 2 weeks. If still elevated, will have her followup with her PCP to evaluate for diabetes. Anaerobic culture is pending. A positive culture may necessitate antibiotic modification. Result Diagrams: 07/06/22 05:16 07/06/22 05:16 Microbiology: Microbiology 07/05/22 14:26 Tissue - Leg, Left Gram Stain - Final 07/05/22 14:26 Tissue - Leg, Left Wound Culture - Final Enterococcus faecalis 07/05/22 14:26 Tissue - Leg, Left Anaerobic Culture - Preliminary Checking for anaerobes, further studies to follow. Pathology - pending. D/C Instructions Discharge Diet: No restrictions (encourage high protein diet) and - (encourage nutritional supplementation with protein to help the healing process.) Discharge Activity: May Not Drive, May Shower (may get wound wet in the shower at the time of the dressing changes. ) and Use Walker (minimize standing. 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.) May shower in (days): 1 (may shower at the time of the dressing changes.) May resume sexual activity in: No Restrictions Weight Bearing Status: Weight bearing as tolerated Keep extremity elevated above heart level: Operative Extremity and Left Leg Call your doctor if your incision/area has: Continuous Slow Oozing, Sudden Increased Bleeding, Increased Pain/ Swelling, Increased Redness, Foul Smelling Discharge and Swelling at the incision site Call your doctor if you observe: Fever of 101 or Higher, Inability to have a bowel movement, Shortness of breath, Chest pain, Calf discomfort and Uncontrolled pain Change Dressing in: 1 day (saline dressing changes daily until the vac is approved then vac changes three times per week at 150 mmHg continuous suction.) Cleanse incision/area with: Soap & Water (may cleanse the wound at the time of the dressing changes.) Additional Dressing/Incision Instructions: If wound VAC is approved, VAC will be at 150 mmHg. VAC dressing changes will be M-W-. If VAC is not approved before going home, will place Saline moistened gauze dressing covered with ABD, Kerlix and JUAN JOSE wrap for compression. Please Follow Up With: Lynsey Johnson NP, [facility] When: Saturday07/09/22 at 1:00 pm at the wound center Meaningful Use Info Meaningful Use Diagnoses (Choose all that apply): None applicable Discharge Plan Admission Admit Date/Time: 07/05/22 14:49 Primary Reason for Your Visit: I&D and debridement necrotic hematoma abscess left posterior leg Attending Provider: Marvin Patel Primary Care Provider: John Montgomery Discharge Orders/Prescriptions Prescriptions: New docusate sodium 100 mg Capsule 100 mg PO DAILY 15 Days Qty: 15 0RF amoxicillin-pot clavulanate 875-125 mg tablet 1 tab PO Q12H 14 Days Qty: 28 1RF L.acidoph,saliva-B.bif-S.therm [Acidophilus Probiotic Blend] 175 mg capsule 1 cap PO DAILY 30 Days Qty: 30 0RF oxycodone-acetaminophen [Percocet] 5-325 mg tablet 1 tab PO Q4H PRN (Reason: pain (scale score 7-10)) 7 Days Qty: 40 0RF Continued gabapentin 300 mg capsule 300 mg PO BID Qty: 60 1RF multivitamin Tablet 1 tab PO DAILY fluoxetine [Prozac] 20 mg Capsule 20 mg PO DAILY Discontinued levofloxacin 500 mg tablet 500 mg PO DAILY 14 Days Qty: 14 0RF Referrals / Follow Up: John Montgomery DO [Primary Care Provider] - (07/09/22 3:20 PM pt had an appointment scheduled for this day already. Due to hospital visit she only need to go to the 3:20 appointment) Marvin Patel MD [[facility] Staff - Active Staff] - (followup at wound center 07/09/22 at 100 pm.) Disposition Disposition (needs filled in before D/C Order can be placed): Home Health Service
== END 2022-07-07 12:37 | disposition home health service (06) ==
LOC: SDC 17:16 → MS3 17:16
PROVIDERS: Admitting Provider Surgery; PCP Student in an Organized Health Care Education/Training Program; Referring Provider Surgery; Visit Provider Surgery
PROC: (CPT 15002; principal; 2022-07-05 12:45)
DX: L02.416 Cutaneous abscess of left lower limb (principal); I96 Gangrene, not elsewhere classified; B95.2 Enterococcus as the cause of diseases classified elsewhere; S80.12XA Contusion of left lower leg, initial encounter; S80.812A Abrasion, left lower leg, initial encounter; S87.82XA Crushing injury of left lower leg, initial encounter; W23.1XXA Caught, crushed, jammed, or pinched between stationary objects, initial encounter; Y93.89 Activity, other specified; Y99.0 Civilian activity done for income or pay; Y92.63 Factory as the place of occurrence of the external cause; Z98.84 Bariatric surgery status
CPT/HCPCS: 15002; 27603; 00400; 36415; 73700; 80048; 80202; 84134; 85027; 87015; 87070; 87075; 87077; 87102; 87116; 87186; 87205; 87206; 88304; 88305; 96365; 96366; 96372; 96375; 97161; 97802; 99221; 99252; J7050; J7120; G0378; G0463; J2405

== ENCOUNTER 2022-07-30 09:00 | Outpatient (RCR) | payer OTHER, SELFPAY ==
[2022-07-01 00:40] VITALS: BP 117/75; PULSE 87; RESP 16; BMI 26.5
[2022-07-09 13:09] VITALS: BP 93/71; PULSE 97; RESP 20; TEMP 36.3; BMI 26.6
--- NOTE | 2022-07-09 15:11 | PN.PCM_ITS ---
History of Present Illness Date of Service: 07/09/22 Chief Complaint: Left distal posterior traumatic hematoma/ulcer History of Wound: 52 year old female presents to the wound healing center for evaluation of her left distal posterior leg ulcer that occurred on 05/31/22 while working at [employer]. 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 She states that it initially has a superficial wound with bruising. She was sent to [facility] for evaluation and they have been monitoring her injury. The bruising became more pronounced a couple days after she was seen at [facility]. She states that it has started to become very painful over the past couple weeks and worsened last week when she developed a black scab and now has redness surrounding the ulcer. She presents today to the wound center for further evaluation. She currently on Bactrim from her PCP for a UTI and she was told it would help with bacterial growth from the ulcer. She is denying and drainage from the ulcer. She initially was treating with hydrogen peroxide and antibiotic ointment. 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 She denies any other medical history. Surgery 07/05/22 - Surgical preparation left posterior leg with incision and drainage and evacuation and excisional debridement traumatic hematoma abscess with overlying skin necrosis (18 cm2). Preliminary operative culture shows Enterococcus faecalis. Progress of Wound: Left distal posterior leg ulcer is beefy pink after her operative debridement. She has been approved for a wound VAC, so that will be placed today. She states her pain is better controlled. She is now ambulating without a walker. Objective Data Objective Data Vital Signs: Vital Signs Temp Pulse Resp BP 97.3 F L 97 20 H 93/71 07/09/22 13:09 07/09/22 13:09 07/09/22 13:09 07/09/22 13:09 Weight: 150 lb 11.094 oz Body Mass Index (BMI) 26.6 Charges/Coding Procedures Integumentary 111xxx-113xx: [id number] Global Visit Debridement Note Debridement Note No debridement was completed: No debridement was completed today Post-Debridement Measurements and Additional Note: Post-Debridement Measurements/Treatment TONI - Nurse 1 - General Ulcer Assessment Start: 07/09/22 13:09 Freq: Status: Active Protocol: WC.LOWEXT Activity Type Activity Date Activity User E-sign Co-sign Detail Recorded Client Recorded Date Recorded By Document 07/09/22 13:09 DL [id number] 07/09/22 13:22 DL 07/09/22 13:09 WC - Today's Visit Information Type of service 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 ) Arrival Mode Ambulatory Transfer Assistance None Patient Identification Verified (Name & Yes ) Patient Requires Transmission-Based No Precautions Height and Weight Height 5 ft 3 in Weight 150 lb 11.094 oz Weight in Pounds 150.7 lbs Body Mass Index (BMI) 26.6 BMI Classification Overweight BSA - Laura 1.71 Vital Signs Temperature (97.8 F-99.1 F) 97.3 F L Temperature Source Temporal Pulse Rate (60-100) 97 Pulse Location Monitor Respiratory Rate (12-18) 20 H Blood Pressure (90/60-120/80) 93/71 Blood Pressure Mean (mm Hg) 78 Source Monitor History Since Last Visit- (Skip if this is Patient's initial visit) Have you changed medications since your No last visit? Any new allergies or adverse reactions No Had a fall/change in ADL's that may No increase risk of falls Signs or symptoms of abuse and/or No neglect since last visit Have you been in the hospital since your Yes last visit? Has dressing in place as prescribed Yes Has compression in place as prescribed Yes Has offloadiing in place as prescribed Yes Experienced any changes in pain level or No management Pain Scale: 0-10 Numeric Is Patient Pain Free? Yes WC - Nurse 1 - General Ulcer Measurement Start: 07/09/22 13:09 Freq: Status: Active Protocol: Activity Type Activity Date Activity User E-sign Co-sign Detail Recorded Client Recorded Date Recorded By Document 07/09/22 13:09 DL [id number] 07/09/22 13:22 DL 07/09/22 13:09 Wound Center Nurse 1 #2 L lower calf- post op -Current Size (cm) - Length 4 -Current Size (cm) - Width 4.5 -Current Size (cm) - Depth 1 -Total Square Cm 18.0 -Photo Taken Yes -Exudate Amt Medium -Exudate Type Serosanguineous -Wound Margin Distinct, Outline Attached -Granulation Amt Large (67-100%) -Granulation Quality Red -Necrosis Amt None Present (0 %) -Structure Exposed N/A -Texture (Nilsa-wound Skin Appearance) Scarring -Moisture (Nilsa-wound Skin Appearance) No Abnormality -Color (Nilsa-wound Skin Appearance) No Abnormality -Temperature (Nilsa-wound Skin No Abnormality Appearance) (Pt Warm) -Tenderness on Palpation (Nilsa-wound Yes Skin Appearance) -Ulcer Cleansing Soap and Water -Foul Odor after Cleansing No -Anesthetic Used 4% Lidocaine Solution - Nurse 2 - General Ulcer CM Notes Start: 07/09/22 13:09 Freq: Status: Active Protocol: Activity Type Activity Date Activity User E-sign Co-sign Detail Recorded Client Recorded Date Recorded By Document 07/09/22 13:47 [id number] 07/09/22 13:48 AAMIR 07/09/22 13:47 Wound Center Nurse 2 -Time 13:47 -Correct Patient No -Correct Side, Site, Position No -Correct Procedure No -Procedure Performed No -Wound/Ulcer Outcome Not Healed -Ulcer Cleansing Rinsed/ Irrigated with Saline -Foul Odor after Cleansing No -Bioengineered Tissue No -Bleeding Controlled with Pressure -Treatment Response Procedure Tolerated Well -Offloading No -Debridement - Subq, 1st 20sq cm No Pain Scale: 0-10 Numeric Is Patient Pain Free? Yes - Nurse 3 - General Ulcer D/C NN Start: 07/09/22 13:09 Freq: Status: Active Protocol: Activity Type Activity Date Activity User E-sign Co-sign Detail Recorded Client Recorded Date Recorded By Document 07/09/22 14:55 DL [id number] 07/09/22 14:57 DL 07/09/22 14:55 Wound Care Nurse 3 #2 L lower calf- post op -Ulcer Cleansing Rinsed/ Irrigated with Saline -Foul Odor after Cleansing No -Negative Pressure Wound Therapy Continue -Setting (mmHg) 150 -Negative Pressure is Continuous -NPWT Application Charge NPWT </= 50 sq cm ($) Left -Compression Wrap Tom Wrap Treatment Response Procedure Tolerated Well Pain Scale: 0-10 Numeric Is Patient Pain Free? Yes Teaching: Wound Center Dressing Your Wound -Person Taught Patient -Teaching Method Discussion, Demonstration, Teach back -Response to teaching Verbalize understanding WC - Visit Discharge Discharge Condition Stable Ambulatory Status Ambulatory Transportation [facility] Facility Type Home Health Orders Sent Yes Assessment/Plan Assessment/Plan (1) Contusion of left lower extremity: CODE(S): S80.12XA - Contusion of left lower leg, initial encounter (2) Abrasion of left lower extremity: CODE(S): S80.812A - Abrasion, left lower leg, initial encounter (3) Abscess of left lower extremity: CODE(S): L02.416 - Cutaneous abscess of left lower limb PLAN: Plan Patient evaluated at the wound center today. No debridement performed due to her operative debridement last . Wound care - VAC at 150 mmHg to be changed 3 times per week. The ulcer and nilsa wound should be washed with soap and water daily. Place an TOM wrap for compression. She is on Augmentin and probiotic for her positive preliminary cultures of Enterococcus faecalis. Awaiting anaerobic results. Instructed her to keep her leg elevated. Will keep her off work until she has better pain control and is able to ambulate easier. Tentative return to work is 08/01/22. Follow up at the wound center in one week.
[2022-07-16 08:36] VITALS: BP 97/56; PULSE 92; TEMP 36.2; BMI 26.6
--- NOTE | 2022-07-16 15:10 | PCM.WC.PN ---
History of Present Illness Date of Service: 07/16/22 Chief Complaint: Left distal posterior traumatic hematoma/ulcer History of Wound: 52 year old female presents to the wound healing center for evaluation of her left distal posterior leg ulcer that occurred on 05/31/22 while working at [employer]. 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 She states that it initially has a superficial wound with bruising. She was sent to [facility] for evaluation and they have been monitoring her injury. The bruising became more pronounced a couple days after she was seen at [facility]. She states that it has started to become very painful over the past couple weeks and worsened last week when she developed a black scab and now has redness surrounding the ulcer. She presents today to the wound center for further evaluation. She currently on Bactrim from her PCP for a UTI and she was told it would help with bacterial growth from the ulcer. She is denying and drainage from the ulcer. She initially was treating with hydrogen peroxide and antibiotic ointment. 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 She denies any other medical history. Surgery 07/05/22 - Surgical preparation left posterior leg with incision and drainage and evacuation and excisional debridement traumatic hematoma abscess with overlying skin necrosis (18 cm2). Preliminary operative culture shows Enterococcus faecalis. Progress of Wound: Left distal posterior leg ulcer is beefy pink with tendon exposure. She is tolerating the wound VAC. She continues to have pain in this area, she states that she feels like she is having muscle spasms. Objective Data Objective Data Vital Signs: Vital Signs Temp Pulse Resp BP 97.2 F L 92 20 H 97/56 L 07/16/22 08:36 07/16/22 08:36 07/09/22 13:09 07/16/22 08:36 Weight: 150 lb 11.094 oz Body Mass Index (BMI) 26.6 Charges/Coding Procedures Integumentary [id number]: [id number] Global Visit Debridement Note Debridement Note Wound debrided: Posterior leg ulcer Laterality: Left Wound Grade/Stage: Stage IV Type of Debridement: Excisional debridement Anesthesia Used: 5% Lidocaine Gel Depth: Down to and including healthy tissue, in the subcutaneous layer and to muscle Percentage of wound debrided: 100 Instrument Used: 7mm curette Tissue Removed: Devitalized tissue and slough Severity: Fat Layer Exposed Amount of bleeding with debridement: Mild Bleeding Controlled with: Pressure and Compression and gauze Patient tolerated procedure: Patient tolerated procedure well Post-Debridement Measurements and Additional Note: Post-Debridement Measurements/Treatment WC - Nurse 1 - General Ulcer Assessment Start: 07/09/22 13:09 Freq: Status: Active Protocol: TONI.LOWEXT Activity Type Activity Date Activity User E-sign Co-sign Detail Recorded Client Recorded Date Recorded By Document 07/09/22 13:09 DL [id number] 07/09/22 13:22 DL Document 07/16/22 08:36 AK Desktop 07/16/22 08:52 AK 07/09/22 07/16/22 13:09 08:36 WC - Today's Visit Information Type of service Follow-up Visit Follow-up Visit (Physician/SUPERVISOR ADVICE (Physician/SUPERVISOR ADVICE ) ) Arrival Mode Ambulatory Ambulatory Transfer Assistance None Patient Identification Verified (Name & Yes Yes ) Patient Requires Transmission-Based No No Precautions Height and Weight Height 5 ft 3 in Weight 150 lb 11.094 oz Weight in Pounds 150.7 lbs Body Mass Index (BMI) 26.6 26.6 BMI Classification Overweight Overweight BSA - Laura 1.71 Vital Signs Temperature (97.8 F-99.1 F) 97.3 F L 97.2 F L Temperature Source Temporal Temporal Pulse Rate (60-100) 97 92 Pulse Location Monitor Monitor Respiratory Rate (12-18) 20 H Blood Pressure (90/60-120/80) 93/71 97/56 L Blood Pressure Mean (mm Hg) 78 69 Source Monitor Monitor History Since Last Visit- (Skip if this is Patient's initial visit) Have you changed medications since your No No last visit? Any new allergies or adverse reactions No No Had a fall/change in ADL's that may No No increase risk of falls Signs or symptoms of abuse and/or No No neglect since last visit Have you been in the hospital since your Yes No last visit? Has dressing in place as prescribed Yes No Has compression in place as prescribed Yes Yes Has offloadiing in place as prescribed Yes N/A Experienced any changes in pain level or No No management Left Footwear Regular Shoe Right Footwear Regular Shoe Pain Scale: 0-10 Numeric Is Patient Pain Free? Yes No WC - Nurse 1 - General Ulcer Measurement Start: 07/09/22 13:09 Freq: Status: Active Protocol: Activity Type Activity Date Activity User E-sign Co-sign Detail Recorded Client Recorded Date Recorded By Document 07/09/22 13:09 DL [id number] 07/09/22 13:22 DL Document 07/16/22 08:36 AK Desktop 07/16/22 08:52 AK 07/09/22 07/16/22 13:09 08:36 Wound Center Nurse 1 #2 L lower calf- post op -Combined with other wound No -Current Size (cm) - Length 4 4.2 -Current Size (cm) - Width 4.5 3.5 -Current Size (cm) - Depth 1 0.5 -Total Square Cm 18.0 14.70 -Date of Last Picture (Recall this 07/16/22 field) -Photo Taken Yes Yes -Tunneling No -Undermining/Tunneling No -Circular Undermining No -Change in Wound Grade/Stage No -Exudate Amt Medium Medium -Exudate Type Serosanguineous Serosanguineous -Wound Margin Distinct, Distinct, Outline Outline Attached Attached -Granulation Amt Large (67-100%) Medium (34-66%) -Granulation Quality [place] -Slough/Fibrin Yes -Necrosis Amt None Present (0 Small (1-33%) %) -Necrotic Tissue Type Adherent Slough -Structure Exposed N/A Tendon -Texture (Nilsa-wound Skin Appearance) Scarring No Abnormality, Assessed -Moisture (Nilsa-wound Skin Appearance) No Abnormality No Abnormality, Assessed -Color (Nilsa-wound Skin Appearance) No Abnormality No Abnormality, Assessed -Temperature (Nilsa-wound Skin No Abnormality No Abnormality Appearance) (Pt Warm) (Pt Warm) -Tenderness on Palpation (Nilsa-wound Yes No Skin Appearance) -Ulcer Cleansing Soap and Water Soap and Water -Foul Odor after Cleansing No No -Anesthetic Used 4% Lidocaine 5% Lidocaine Solution Gel WC - Nurse 2 - General Ulcer CM Notes Start: 07/09/22 13:09 Freq: Status: Active Protocol: Activity Type Activity Date Activity User E-sign Co-sign Detail Recorded Client Recorded Date Recorded By Document 07/09/22 13:47 AAMIR [id number] 07/09/22 13:48 Document 07/16/22 09:14 [id number] 07/16/22 09:17 07/09/22 07/16/22 13:47 09:14 Wound Center Nurse 2 #2 L lower calf- post op -Time 13:47 09:15 -Correct Patient No Yes -Correct Side, Site, Position No Yes -Correct Procedure No Yes -Procedure Performed No -Type of Procedure Incision & Drainage -Clinical Debridement Muscle / Fascia -Tissue Removed Muscle,Fascia -Post Debridement (cm) - Length 4.5 -Post Debridement (cm) - Width 3.9 -Post Debridement (cm) - Depth 0.8 -Total Square (Post) (cm) 17.55 -Area of Debridement (cm) - Length 4.5 -Area of Debridement (cm) - Width 3.9 -Total Square (Area) (cm) 17.55 -Tunneling No -Undermining/Tunneling No -Circular Undermining No -Wound/Ulcer Outcome Not Healed Not Healed -Ulcer Cleansing Rinsed/ Rinsed/ Irrigated with Irrigated with Saline Saline -Foul Odor after Cleansing No No -Bioengineered Tissue No No -Bleeding Controlled with Pressure Pressure -Treatment Response Procedure Procedure Tolerated Well Tolerated Well -Offloading No No -Debridement - Subq, 1st 20sq cm No -Debridement - Muscle / Fascia, 1st Yes 20sq cm Pain Scale: 0-10 Numeric Is Patient Pain Free? Yes Yes WC - Nurse 3 - General Ulcer D/C NN Start: 07/09/22 13:09 Freq: Status: Active Protocol: Activity Type Activity Date Activity User E-sign Co-sign Detail Recorded Client Recorded Date Recorded By Document 07/09/22 14:55 DL [id number] 07/09/22 14:57 DL Document 07/16/22 09:35 AK Desktop 07/16/22 09:37 AK 07/09/22 07/16/22 14:55 09:35 Wound Care Nurse 3 #2 L lower calf- post op -Ulcer Cleansing Rinsed/ Rinsed/ Irrigated with Irrigated with Saline Saline -Foul Odor after Cleansing No No -Negative Pressure Wound Therapy Continue Continue -Setting (mmHg) 150 150 -Negative Pressure is Continuous Continuous -Regranex (If Applicable) Continue -Primary Dressing Applied NonAdherent Contact Layer -Other Dressing adaptic over tendon - Laly LJess put on wound vac -NPWT Application Charge NPWT </= 50 sq NPWT </= 50 sq cm ($) cm ($) Left -Compression Wrap Tmo Wrap Tom Wrap Treatment Response Procedure Tolerated Well Pain Scale: 0-10 Numeric Is Patient Pain Free? Yes No Teaching: Wound Center Dressing Your Wound -Person Taught Patient -Teaching Method Discussion, Demonstration, Teach back -Response to teaching Verbalize understanding WC - Visit Discharge Discharge Condition Stable Stable Ambulatory Status Ambulatory Ambulatory Transportation Private Auto Private Auto Medication Reconcilliation completed & Yes provided to patient/care provider Clinical Summary of Care Provided Yes Facility Type Home Health Orders Sent Yes Assessment/Plan Assessment/Plan (1) Contusion of left lower extremity: CODE(S): S80.12XA - Contusion of left lower leg, initial encounter (2) Abrasion of left lower extremity: CODE(S): S80.812A - Abrasion, left lower leg, initial encounter (3) Abscess of left lower extremity: CODE(S): L02.416 - Cutaneous abscess of left lower limb PLAN: Plan Patient evaluated at the wound center today. Wound care - VAC at 150 mmHg to be changed 3 times per week, place adaptic over the tendon. The ulcer and nilsa wound should be washed with soap and water daily. Place an TOM wrap for compression. Operative cultures positive for Enterococcus faecalis, Bacteroides stercoris and Peptoniphilus asaccharoyticus, she is on Augmentin and probiotic. Instructed her to keep her leg elevated. Will keep her off work until she has better pain control and is able to ambulate easier. Tentative return to work is 08/01/22. Renewed Percocet (20 tabs) and Valium for the muscle spasms. Follow up one week. Call or come in sooner with any concerns.
[2022-07-23 10:17] VITALS: BP 121/88; PULSE 104; RESP 20; TEMP 35.9; BMI 26.6
[2022-07-23 10:28] VITALS: BP 121/88; PULSE 104; TEMP 35.7; BMI 26.6
--- NOTE | 2022-07-23 11:15 | PCM.WC.PN ---
History of Present Illness Date of Service: 07/23/22 Chief Complaint: Left distal posterior traumatic hematoma/ulcer History of Wound: 52 year old female presents to the wound healing center for evaluation of her left distal posterior leg ulcer that occurred on 05/31/22 while working at [employer]. 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 She states that it initially has a superficial wound with bruising. She was sent to [facility] for evaluation and they have been monitoring her injury. The bruising became more pronounced a couple days after she was seen at [facility]. She states that it has started to become very painful over the past couple weeks and worsened last week when she developed a black scab and now has redness surrounding the ulcer. She presents today to the wound center for further evaluation. She currently on Bactrim from her PCP for a UTI and she was told it would help with bacterial growth from the ulcer. She is denying and drainage from the ulcer. She initially was treating with hydrogen peroxide and antibiotic ointment. 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 She denies any other medical history. Surgery 07/05/22 - Surgical preparation left posterior leg with incision and drainage and evacuation and excisional debridement traumatic hematoma abscess with overlying skin necrosis (18 cm2). Preliminary operative culture shows Enterococcus faecalis. Progress of Wound: Patient states that she is having a lot of pain. She states she has been very tearful this week. She is feeling frustrated with how much pain she is having along with feeling overwhelmed and frustrated with how slow this process of healing is taking. She states that she has not been consistently taking her pain medication. She will have periods where she has no pain but then suddenly she is having pain and burning and her pain is a 10/10. She states that the Valium does help with the muscle spasms but again doesn't like to take too much medication. She is not sure if her pain is caused from muscle spasms or is post surgical pain. The l eft distal posterior leg ulcer is beefy pink with tendon exposure. There is improvement in the overall size of the ulcer. She is tolerating the wound VAC, although she is frustrated with carrying it around all the time. Her son is getting on 08/04/22, we will plan on taking a VAC holiday during that time. Objective Data Objective Data Vital Signs: Vital Signs Temp Pulse Resp BP 96.2 F L 104 H 20 H 121/88 H 07/23/22 10:28 07/23/22 10:28 07/23/22 10:17 07/23/22 10:28 Weight: 150 lb 11.094 oz Body Mass Index (BMI) 26.6 Charges/Coding Procedures Integumentary [id number]: [id number] Global Visit Debridement Note Debridement Note Wound debrided: Posterior leg ulcer Laterality: Left Wound Grade/Stage: Stage IV Type of Debridement: Excisional debridement Anesthesia Used: 5% Lidocaine Gel Depth: Down to and including healthy tissue, in the subcutaneous layer and to muscle Percentage of wound debrided: 100 Instrument Used: 7mm curette Tissue Removed: Devitalized tissue and slough Severity: Fat Layer Exposed Amount of bleeding with debridement: Mild Bleeding Controlled with: Pressure and Compression and gauze Patient tolerated procedure: Patient tolerated procedure well Post-Debridement Measurements and Additional Note: Post-Debridement Measurements/Treatment - Nurse 1 - General Ulcer Assessment Start: 07/09/22 13:09 Freq: Status: Active Protocol: TOMASZ Activity Type Activity Date Activity User E-sign Co-sign Detail Recorded Client Recorded Date Recorded By Document 07/09/22 13:09 DL [id number] 07/09/22 13:22 DL Document 07/16/22 08:36 AK Desktop 07/16/22 08:52 AK Document 07/23/22 10:17 DL [id number] 07/23/22 11:00 DL Document 07/23/22 10:28 AK [id number] 07/23/22 10:32 AK 07/09/22 07/16/22 07/23/22 13:09 08:36 10:17 - Today's Visit Information Type of service Follow-up Visit Follow-up Visit Follow-up Visit (Physician/COAL DRIER OPERATOR (Physician/COAL DRIER OPERATOR (Physician/COAL DRIER OPERATOR ) ) ) Arrival Mode Ambulatory Ambulatory Ambulatory Transfer Assistance None Transfer Board Patient Identification Verified (Name & Yes Yes Yes ) Patient Requires Transmission-Based No No No Precautions Height and Weight Height 5 ft 3 in Weight 150 lb 11.094 oz Weight in Pounds 150.7 lbs Body Mass Index (BMI) 26.6 26.6 26.6 BMI Classification Overweight Overweight Overweight BSA - Laura 1.71 Vital Signs Temperature (97.8 F-99.1 F) 97.3 F L 97.2 F L 96.6 F L Temperature Source Temporal Temporal Temporal Pulse Rate (60-100) 97 92 104 H Pulse Location Monitor Monitor Monitor Respiratory Rate (12-18) 20 H 20 H Respiratory rate source Observation Blood Pressure (90/60-120/80) 93/71 97/56 L 121/88 H Blood Pressure Mean (mm Hg) 78 69 99 Source Monitor Monitor Monitor History Since Last Visit- (Skip if this is Patient's initial visit) Have you changed medications since your No No No last visit? Any new allergies or adverse reactions No No No Had a fall/change in ADL's that may No No No increase risk of falls Signs or symptoms of abuse and/or No No No neglect since last visit Have you been in the hospital since your Yes No No last visit? Has dressing in place as prescribed Yes No Yes Has compression in place as prescribed Yes Yes Yes Has offloadiing in place as prescribed Yes N/A N/A Experienced any changes in pain level or No No No management Left Footwear Regular Shoe Right Footwear Regular Shoe Pain Scale: 0-10 Numeric Is Patient Pain Free? Yes No Yes 07/23/22 10:28 WC - Today's Visit Information Type of service Follow-up Visit (Physician/COAL DRIER OPERATOR ) Arrival Mode Ambulatory Transfer Assistance Patient Identification Verified (Name & Yes ) Patient Requires Transmission-Based No Precautions Height and Weight Height Weight Weight in Pounds Body Mass Index (BMI) 26.6 BMI Classification Overweight BSA - [place] Vital Signs Temperature (97.8 F-99.1 F) 96.2 F L Temperature Source Temporal Pulse Rate (60-100) 104 H Pulse Location Monitor Respiratory Rate (12-18) Respiratory rate source Blood Pressure (90/60-120/80) 121/88 H Blood Pressure Mean (mm Hg) 99 Source Monitor History Since Last Visit- (Skip if this is Patient's initial visit) Have you changed medications since your No last visit? Any new allergies or adverse reactions No Had a fall/change in ADL's that may No increase risk of falls Signs or symptoms of abuse and/or No neglect since last visit Have you been in the hospital since your No last visit? Has dressing in place as prescribed Yes Has compression in place as prescribed N/A Has offloadiing in place as prescribed N/A Experienced any changes in pain level or No management Left Footwear Regular Shoe Right Footwear Regular Shoe Pain Scale: 0-10 Numeric Is Patient Pain Free? No WC - Nurse 1 - General Ulcer Measurement Start: 07/09/22 13:09 Freq: Status: Active Protocol: Activity Type Activity Date Activity User E-sign Co-sign Detail Recorded Client Recorded Date Recorded By Document 07/09/22 13:09 DL [id number] 07/09/22 13:22 DL Document 07/16/22 08:36 AK Desktop 07/16/22 08:52 AK Document 07/23/22 10:17 DL [id number] 07/23/22 11:00 DL Document 07/23/22 10:28 AK [id number] 07/23/22 10:32 AK 07/09/22 07/16/22 07/23/22 13:09 08:36 10:17 Wound Center Nurse 1 #2 L lower calf- post op -Combined with other wound No -Current Size (cm) - Length 4 4.2 4 -Current Size (cm) - Width 4.5 3.5 3.5 -Current Size (cm) - Depth 1 0.5 -Total Square Cm 18.0 14.70 14.0 -Date of Last Picture (Recall this 07/16/22 field) -Photo Taken Yes Yes Yes -Tunneling No -Undermining/Tunneling No -Circular Undermining No -Change in Wound Grade/Stage No -Exudate Amt Medium Medium -Exudate Type Serosanguineous Serosanguineous -Wound Margin Distinct, Distinct, Outline Outline Attached Attached -Granulation Amt Large (67-100%) Medium (34-66%) -Granulation Quality Red [place] -Slough/Fibrin Yes -Necrosis Amt None Present (0 Small (1-33%) %) -Necrotic Tissue Type Adherent Slough -Structure Exposed N/A Tendon -Texture (Nilsa-wound Skin Appearance) Scarring No Abnormality, Assessed -Moisture (Nilsa-wound Skin Appearance) No Abnormality No Abnormality, Assessed -Color (Nilsa-wound Skin Appearance) No Abnormality No Abnormality, Assessed -Temperature (Nilsa-wound Skin No Abnormality No Abnormality Appearance) (Pt Warm) (Pt Warm) -Tenderness on Palpation (Nilsa-wound Yes No Skin Appearance) -Ulcer Cleansing Soap and Water Soap and Water -Foul Odor after Cleansing No No -Anesthetic Used 4% Lidocaine 5% Lidocaine Solution Gel 07/23/22 10:28 Wound Center Nurse 1 #2 L lower calf- post op -Combined with other wound No -Current Size (cm) - Length 4.5 -Current Size (cm) - Width 4.8 -Current Size (cm) - Depth 0.4 -Total Square Cm 21.60 -Date of Last Picture (Recall this field) -Photo Taken Yes -Tunneling No -Undermining/Tunneling No -Circular Undermining No -Change in Wound Grade/Stage No -Exudate Amt Large -Exudate Type Serosanguineous -Wound Margin Distinct, Outline Attached -Granulation Amt Small (1-33%) -Granulation Quality N/A,Red -Slough/Fibrin Yes -Necrosis Amt Small (1-33%) -Necrotic Tissue Type Adherent Slough -Structure Exposed Tendon -Texture (Nilsa-wound Skin Appearance) No Abnormality, Assessed -Moisture (Nilsa-wound Skin Appearance) No Abnormality, Assessed -Color (Nilsa-wound Skin Appearance) No Abnormality, Assessed -Temperature (Nilsa-wound Skin No Abnormality Appearance) (Pt Warm) -Tenderness on Palpation (Nilsa-wound No Skin Appearance) -Ulcer Cleansing Soap and Water -Foul Odor after Cleansing No -Anesthetic Used 5% Lidocaine Gel WC - Nurse 2 - General Ulcer CM Notes Start: 07/09/22 13:09 Freq: Status: Active Protocol: Activity Type Activity Date Activity User E-sign Co-sign Detail Recorded Client Recorded Date Recorded By Document 07/09/22 13:47 [id number] 07/09/22 13:48 Document 07/16/22 09:14 [id number] 07/16/22 09:17 Document 07/23/22 10:37 [id number] 07/23/22 10:43 07/09/22 07/16/22 07/23/22 13:47 09:14 10:37 Wound Center Nurse 2 #2 L lower calf- post op -Time 13:47 09:15 10:37 -Correct Patient No Yes Yes -Correct Side, Site, Position No Yes Yes -Correct Procedure No Yes Yes -Procedure Performed No Yes -Type of Procedure Debridement -Type of Procedure Incision & Drainage -Clinical Debridement Muscle / Fascia Muscle / Fascia -Tissue Removed Muscle,Fascia Muscle,Fascia, Tendon -Post Debridement (cm) - Length 4.5 4.2 -Post Debridement (cm) - Width 3.9 3.2 -Post Debridement (cm) - Depth 0.8 0.7 -Total Square (Post) (cm) 17.55 13.44 -Area of Debridement (cm) - Length 4.5 4.2 -Area of Debridement (cm) - Width 3.9 3.2 -Total Square (Area) (cm) 17.55 13.44 -Tunneling No No -Undermining/Tunneling No No -Circular Undermining No No -Wound/Ulcer Outcome Not Healed Not Healed Not Healed -Ulcer Cleansing Rinsed/ Rinsed/ Rinsed/ Irrigated with Irrigated with Irrigated with Saline Saline Saline -Foul Odor after Cleansing No No No -Bioengineered Tissue No No No -Bleeding Controlled with Pressure Pressure Pressure -Treatment Response Procedure Procedure Procedure Tolerated Well Tolerated Well Tolerated Well -Offloading No No No -Debridement - Subq, 1st 20sq cm No -Debridement - Muscle / Fascia, 1st Yes Yes 20sq cm Pain Scale: 0-10 Numeric Is Patient Pain Free? Yes Yes No left achilles ulcer -Description Burning -Intensity 10 -Duration (hours) Chronic -Pain Behavior Guarding, Irritability -Pain Aggravating Factors ADL's, Debridement -Alleviating Factors/Interventions Medication, Medicate when due -Effectiveness of Alleviating Factor/ Minimally Intervention effective -Comments adding Ibuprofen 600mg every 6 hours WC - Nurse 3 - General Ulcer D/C NN Start: 07/09/22 13:09 Freq: Status: Active Protocol: Activity Type Activity Date Activity User E-sign Co-sign Detail Recorded Client Recorded Date Recorded By Document 07/09/22 14:55 DL [id number] 07/09/22 14:57 DL Document 07/16/22 09:35 AK Desktop 07/16/22 09:37 AK Edit Result 07/16/22 09:35 AK (1) [id number] 07/17/22 06:52 PL Document 07/23/22 11:02 DL [id number] 07/23/22 11:04 DL (1) #2 L lower calf- post op - NPWT Application Charge NPWT </= 50 sq cm => NPWT & Debridement ($) => (nc) 07/09/22 07/16/22 07/23/22 14:55 09:35 11:02 Wound Care Nurse 3 #2 L lower calf- post op -Ulcer Cleansing Rinsed/ Rinsed/ Soap and Water Irrigated with Irrigated with Saline Saline -Foul Odor after Cleansing No No No -Negative Pressure Wound Therapy Continue Continue Continue -Setting (mmHg) 150 150 150 -Negative Pressure is Continuous Continuous Continuous -Regranex (If Applicable) Continue -Primary Dressing Applied NonAdherent Contact Layer -Other Dressing adaptic over tendon - Laly L. put on wound vac -NPWT Application Charge NPWT </= 50 sq NPWT & NPWT </= 50 sq cm ($) Debridement (nc cm ($) ) Left -Compression Wrap Tom Wrap Tom Wrap Treatment Response Procedure Procedure Tolerated Well Tolerated Well Pain Scale: 0-10 Numeric Is Patient Pain Free? Yes No No left achilles ulcer -Description Dull -Intensity 3 -Pain Behavior Withdrawal from Touch -Alleviating Factors/Interventions Inactivity/ Resting -Comments Pain with debridement Teaching: Wound Center Dressing Your Wound -Person Taught Patient -Teaching Method Discussion, Demonstration, Teach back -Response to teaching Verbalize understanding WC - Visit Discharge Discharge Condition Stable Stable Stable Ambulatory Status Ambulatory Ambulatory Ambulatory Transportation Private Auto Private Auto Private Auto Medication Reconcilliation completed & Yes provided to patient/care provider Clinical Summary of Care Provided Yes Facility Type Home Health Home Health Orders Sent Yes Yes Assessment/Plan Assessment/Plan (1) Contusion of left lower extremity: CODE(S): S80.12XA - Contusion of left lower leg, initial encounter (2) Abrasion of left lower extremity: CODE(S): S80.812A - Abrasion, left lower leg, initial encounter (3) Abscess of left lower extremity: CODE(S): L02.416 - Cutaneous abscess of left lower limb (4) Other acute postprocedural pain: CODE(S): G89.18 - Other acute postprocedural pain (5) Anxiety: CODE(S): F41.9 - Anxiety disorder, unspecified (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 She is very tearful and having issues with both pain and anxiety. Will increase her Prozac to 40 mg/ day to see if this helps with both her anxiety and her tearfulness. Wound care - VAC at 150 mmHg to be changed 3 times per week, place adaptic over the tendon. The ulcer and nilsa wound should be washed with soap and water daily. Place an TOM wrap for compression. Operative cultures positive for Enterococcus faecalis, Bacteroides stercoris and Peptoniphilus asaccharoyticus, she is on Augmentin and probiotic. Will renew her Augmentin for another 3 weeks. Instructed her to keep her leg elevated. Will keep her off work until she has better pain control and is able to ambulate easier. Tentative return to work is 08/27/22. Will increase her Gabapentin to 400 mg BID for the burning pain. Will start her on Ibuprofen 600 mg every 6 hours as needed for pain. She needs to take this with food and I instructed her that she should take it regularly for the next couple days to see if this gets her pain under better control and then take the Percocet as needed for breakthrough pain or if she is having muscle spasms, she should take the Valium. Her son is getting on 08/04/22 and we will plan on taking a wound VAC holiday that week. Follow up one week. Call or come in sooner with any concerns.
--- NOTE | 2022-07-27 14:35 | PCM.PROGNOTE ---
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 Originally orders sent to [facility] but they did not have the one prescription. Canceled those scripts and ordered Percocet 5 mg BID PRN x 7 days (14 tabs) for pain. Valium 5 mg BID PRN for muscle spasms (14 tabs).
[2022-07-30 09:04] VITALS: BP 112/76; PULSE 95; RESP 18; TEMP 36.2; BMI 26.6
--- NOTE | 2022-07-30 11:56 | PN.PCM_ITS ---
History of Present Illness Date of Service: 07/30/22 Chief Complaint: Left distal posterior traumatic hematoma/ulcer History of Wound: 52 year old female presents to the wound healing center for evaluation of her left distal posterior leg ulcer that occurred on 05/31/22 while working at [employer]. 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 She states that it initially has a superficial wound with bruising. She was sent to [facility] for evaluation and they have been monitoring her injury. The bruising became more pronounced a couple days after she was seen at [facility]. She states that it has started to become very painful over the past couple weeks and worsened last week when she developed a black scab and now has redness surrounding the ulcer. She presents today to the wound center for further evaluation. She currently on Bactrim from her PCP for a UTI and she was told it would help with bacterial growth from the ulcer. She is denying and drainage from the ulcer. She initially was treating with hydrogen peroxide and antibiotic ointment. 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 She denies any other medical history. Surgery 07/05/22 - Surgical preparation left posterior leg with incision and drainage and evacuation and excisional debridement traumatic hematoma abscess with overlying skin necrosis (18 cm2). Preliminary operative culture shows Enterococcus faecalis. Progress of Wound: Patient states her pain is better controlled this week. She states she is starting to feel better overall, although she is frustrated that she is not healing faster. There is improvement in the overall size of the ulcer and there is granulation tissue starting to cover the tendon. Her son is getting on 08/04/22, we will plan on taking a VAC holiday this week. Objective Data Objective Data Vital Signs: Vital Signs Temp Pulse Resp BP 97.2 F L 95 18 112/76 07/30/22 09:04 07/30/22 09:04 07/30/22 09:04 07/30/22 09:04 Weight: 150 lb 11.094 oz Body Mass Index (BMI) 26.6 Charges/Coding Procedures Integumentary 111xxx-113xx: [id number] Global Visit Debridement Note Debridement Note Wound debrided: Posterior leg ulcer Laterality: Left Wound Grade/Stage: Stage IV Type of Debridement: Excisional debridement Anesthesia Used: 5% Lidocaine Gel Depth: Down to and including healthy tissue, in the subcutaneous layer and to muscle Percentage of wound debrided: 100 Instrument Used: 5mm curette Tissue Removed: Devitalized tissue and slough Severity: Fat Layer Exposed Amount of bleeding with debridement: Mild Bleeding Controlled with: Pressure and Compression and gauze Patient tolerated procedure: Patient tolerated procedure well Post-Debridement Measurements and Additional Note: Post-Debridement Measurements/Treatment WC - Nurse 1 - General Ulcer Assessment Start: 07/09/22 13:09 Freq: Status: Active Protocol: TOMASZ Activity Type Activity Date Activity User E-sign Co-sign Detail Recorded Client Recorded Date Recorded By Document 07/09/22 13:09 DL [id number] 07/09/22 13:22 DL Document 07/16/22 08:36 AK Desktop 07/16/22 08:52 AK Document 07/23/22 10:17 DL [id number] 07/23/22 11:00 DL Document 07/23/22 10:28 AK [id number] 07/23/22 10:32 AK Document 07/30/22 09:04 DL [id number] 07/30/22 09:11 DL 07/09/22 07/16/22 07/23/22 13:09 08:36 10:17 - Today's Visit Information Type of service Follow-up Visit Follow-up Visit Follow-up Visit (Physician/INFORMATION SYSTEMS AUDIT MANAGER (Physician/INFORMATION SYSTEMS AUDIT MANAGER (Physician/INFORMATION SYSTEMS AUDIT MANAGER ) ) ) Arrival Mode Ambulatory Ambulatory Ambulatory Transfer Assistance None Transfer Board Patient Identification Verified (Name & Yes Yes Yes ) Patient Requires Transmission-Based No No No Precautions Height and Weight Height 5 ft 3 in Weight 150 lb 11.094 oz Weight in Pounds 150.7 lbs Body Mass Index (BMI) 26.6 26.6 26.6 BMI Classification Overweight Overweight Overweight BSA - Laura 1.71 Vital Signs Temperature (97.8 F-99.1 F) 97.3 F L 97.2 F L 96.6 F L Temperature Source Temporal Temporal Temporal Pulse Rate (60-100) 97 92 104 H Pulse Location Monitor Monitor Monitor Respiratory Rate (12-18) 20 H 20 H Respiratory rate source Observation Blood Pressure (90/60-120/80) 93/71 97/56 L 121/88 H Blood Pressure Mean (mm Hg) 78 69 99 Source Monitor Monitor Monitor History Since Last Visit- (Skip if this is Patient's initial visit) Have you changed medications since your No No No last visit? Any new allergies or adverse reactions No No No Had a fall/change in ADL's that may No No No increase risk of falls Signs or symptoms of abuse and/or No No No neglect since last visit Have you been in the hospital since your Yes No No last visit? Has dressing in place as prescribed Yes No Yes Has compression in place as prescribed Yes Yes Yes Has offloadiing in place as prescribed Yes N/A N/A Experienced any changes in pain level or No No No management Left Footwear Regular Shoe Right Footwear Regular Shoe Pain Scale: 0-10 Numeric Is Patient Pain Free? Yes No Yes 07/23/22 07/30/22 10:28 09:04 WC - Today's Visit Information Type of service Follow-up Visit Follow-up Visit (Physician/INFORMATION SYSTEMS AUDIT MANAGER (Physician/INFORMATION SYSTEMS AUDIT MANAGER ) ) Arrival Mode Ambulatory Ambulatory Transfer Assistance None Patient Identification Verified (Name & Yes Yes ) Patient Requires Transmission-Based No No Precautions Height and Weight Height Weight Weight in Pounds Body Mass Index (BMI) 26.6 26.6 BMI Classification Overweight Overweight [facility] - Laura Vital Signs Temperature (97.8 F-99.1 F) 96.2 F L 97.2 F L Temperature Source Temporal Temporal Pulse Rate (60-100) 104 H 95 Pulse Location Monitor Monitor Respiratory Rate (12-18) 18 Respiratory rate source Observation Blood Pressure (90/60-120/80) 121/88 H 112/76 Blood Pressure Mean (mm Hg) 99 88 Source Monitor Monitor History Since Last Visit- (Skip if this is Patient's initial visit) Have you changed medications since your No No last visit? Any new allergies or adverse reactions No No Had a fall/change in ADL's that may No No increase risk of falls Signs or symptoms of abuse and/or No No neglect since last visit Have you been in the hospital since your No No last visit? Has dressing in place as prescribed Yes Yes Has compression in place as prescribed N/A N/A Has offloadiing in place as prescribed N/A Yes Experienced any changes in pain level or No management Left Footwear Regular Shoe Right Footwear Regular Shoe Pain Scale: 0-10 Numeric Is Patient Pain Free? No Yes WC - Nurse 1 - General Ulcer Measurement Start: 07/09/22 13:09 Freq: Status: Active Protocol: Activity Type Activity Date Activity User E-sign Co-sign Detail Recorded Client Recorded Date Recorded By Document 07/09/22 13:09 DL [id number] 07/09/22 13:22 DL Document 07/16/22 08:36 AK Desktop 07/16/22 08:52 AK Document 07/23/22 10:17 DL [id number] 07/23/22 11:00 DL Document 07/23/22 10:28 AK [id number] 07/23/22 10:32 AK Document 07/30/22 09:04 DL [id number] 07/30/22 09:11 DL 07/09/22 07/16/22 07/23/22 13:09 08:36 10:17 Wound Center Nurse 1 #2 L lower calf- post op -Combined with other wound No -Current Size (cm) - Length 4 4.2 4 -Current Size (cm) - Width 4.5 3.5 3.5 -Current Size (cm) - Depth 1 0.5 -Total Square Cm 18.0 14.70 14.0 -Date of Last Picture (Recall this 07/16/22 field) -Photo Taken Yes Yes Yes -Tunneling No -Undermining/Tunneling No -Maximum Distance #2 (cm) -Circular Undermining No -Change in Wound Grade/Stage No -Exudate Amt Medium Medium -Exudate Type Serosanguineous Serosanguineous -Wound Margin Distinct, Distinct, Outline Outline Attached Attached -Granulation Amt Large (67-100%) Medium (34-66%) -Granulation Quality Red [place] -Slough/Fibrin Yes -Necrosis Amt None Present (0 Small (1-33%) %) -Necrotic Tissue Type Adherent Slough -Structure Exposed N/A Tendon -Texture (Nilsa-wound Skin Appearance) Scarring No Abnormality, Assessed -Moisture (Nilsa-wound Skin Appearance) No Abnormality No Abnormality, Assessed -Color (Nilsa-wound Skin Appearance) No Abnormality No Abnormality, Assessed -Temperature (Nilsa-wound Skin No Abnormality No Abnormality Appearance) (Pt Warm) (Pt Warm) -Tenderness on Palpation (Nilsa-wound Yes No Skin Appearance) -Ulcer Cleansing Soap and Water Soap and Water -Foul Odor after Cleansing No No -Anesthetic Used 4% Lidocaine 5% Lidocaine Solution Gel 07/23/22 07/30/22 10:28 09:04 Wound Center Nurse 1 #2 L lower calf- post op -Combined with other wound No -Current Size (cm) - Length 4.5 4 -Current Size (cm) - Width 4.8 2.8 -Current Size (cm) - Depth 0.4 0.6 -Total Square Cm 21.60 11.2 -Date of Last Picture (Recall this field) -Photo Taken Yes No -Tunneling No -Undermining/Tunneling No -Maximum Distance #2 (cm) 0.5 -Circular Undermining No Yes -Change in Wound Grade/Stage No -Exudate Amt Large Medium -Exudate Type Serosanguineous Serosanguineous -Wound Margin Distinct, Distinct, Outline Outline Attached Attached -Granulation Amt Small (1-33%) Large (67-100%) -Granulation Quality N/A,Red Red -Slough/Fibrin Yes -Necrosis Amt Small (1-33%) None Present (0 %) -Necrotic Tissue Type Adherent Slough -Structure Exposed Tendon Tendon -Texture (Nilsa-wound Skin Appearance) No Abnormality, Scarring Assessed -Moisture (Nilsa-wound Skin Appearance) No Abnormality, No Abnormality Assessed -Color (Nilsa-wound Skin Appearance) No Abnormality, No Abnormality Assessed -Temperature (Nilsa-wound Skin No Abnormality No Abnormality Appearance) (Pt Warm) (Pt Warm) -Tenderness on Palpation (Nilsa-wound No No Skin Appearance) -Ulcer Cleansing Soap and Water Not Cleansed -Foul Odor after Cleansing No No -Anesthetic Used 5% Lidocaine 5% Lidocaine Gel Gel WC - Nurse 2 - General Ulcer CM Notes Start: 07/09/22 13:09 Freq: Status: Active Protocol: Activity Type Activity Date Activity User E-sign Co-sign Detail Recorded Client Recorded Date Recorded By Document 07/09/22 13:47 AAMIR [id number] 07/09/22 13:48 AMAIR Document 07/16/22 09:14 AAMIR [id number] 07/16/22 09:17 AAMIR Document 07/23/22 10:37 AAMIR [id number] 07/23/22 10:43 JF Document 07/30/22 09:24 [id number] 07/30/22 09:34 JF 07/09/22 07/16/22 07/23/22 13:47 09:14 10:37 Wound Center Nurse 2 #2 L lower calf- post op -Time 13:47 09:15 10:37 -Correct Patient No Yes Yes -Correct Side, Site, Position No Yes Yes -Correct Procedure No Yes Yes -Procedure Performed No Yes -Type of Procedure Debridement -Type of Procedure Incision & Drainage -Clinical Debridement Muscle / Fascia Muscle / Fascia -Tissue Removed Muscle,Fascia Muscle,Fascia, Tendon -Post Debridement (cm) - Length 4.5 4.2 -Post Debridement (cm) - Width 3.9 3.2 -Post Debridement (cm) - Depth 0.8 0.7 -Total Square (Post) (cm) 17.55 13.44 -Area of Debridement (cm) - Length 4.5 4.2 -Area of Debridement (cm) - Width 3.9 3.2 -Total Square (Area) (cm) 17.55 13.44 -Tunneling No No -Undermining/Tunneling No No -Circular Undermining No No -Wound/Ulcer Outcome Not Healed Not Healed Not Healed -Ulcer Cleansing Rinsed/ Rinsed/ Rinsed/ Irrigated with Irrigated with Irrigated with Saline Saline Saline -Foul Odor after Cleansing No No No -Bioengineered Tissue No No No -Bleeding Controlled with Pressure Pressure Pressure -Treatment Response Procedure Procedure Procedure Tolerated Well Tolerated Well Tolerated Well -Offloading No No No -Debridement - Subq, 1st 20sq cm No -Debridement - Muscle / Fascia, 1st Yes Yes 20sq cm Pain Scale: 0-10 Numeric Is Patient Pain Free? Yes Yes No left achilles ulcer -Description Burning -Intensity 10 -Duration (hours) Chronic -Pain Behavior Guarding, Irritability -Pain Aggravating Factors ADL's, Debridement -Alleviating Factors/Interventions Medication, Medicate when due -Effectiveness of Alleviating Factor/ Minimally Intervention effective -Comments adding Ibuprofen 600mg every 6 hours 07/30/22 09:24 Wound Center Nurse 2 #2 L lower calf- post op -Time 09:24 -Correct Patient Yes -Correct Side, Site, Position Yes -Correct Procedure Yes -Procedure Performed Yes -Type of Procedure Debridement -Type of Procedure -Clinical Debridement Muscle / Fascia -Tissue Removed Muscle,Tendon -Post Debridement (cm) - Length 4.2 -Post Debridement (cm) - Width 3.0 -Post Debridement (cm) - Depth 0.6 -Total Square (Post) (cm) 12.60 -Area of Debridement (cm) - Length 4.2 -Area of Debridement (cm) - Width 3.0 -Total Square (Area) (cm) 12.60 -Tunneling No -Undermining/Tunneling No -Circular Undermining No -Wound/Ulcer Outcome Not Healed -Ulcer Cleansing Rinsed/ Irrigated with Saline -Foul Odor after Cleansing No -Bioengineered Tissue No -Bleeding Controlled with Pressure -Treatment Response Procedure Tolerated Well -Offloading No -Debridement - Subq, 1st 20sq cm -Debridement - Muscle / Fascia, 1st Yes 20sq cm Pain Scale: 0-10 Numeric Is Patient Pain Free? Yes left achilles ulcer -Description -Intensity -Duration (hours) -Pain Behavior -Pain Aggravating Factors -Alleviating Factors/Interventions -Effectiveness of Alleviating Factor/ Intervention -Comments WC - Nurse 3 - General Ulcer D/C NN Start: 07/09/22 13:09 Freq: Status: Active Protocol: Activity Type Activity Date Activity User E-sign Co-sign Detail Recorded Client Recorded Date Recorded By Document 07/09/22 14:55 DL [id number] 07/09/22 14:57 DL Document 07/16/22 09:35 AK Desktop 07/16/22 09:37 AK Edit Result 07/16/22 09:35 AK (1) [id number] 07/17/22 06:52 PL Document 07/23/22 11:02 DL [id number] 07/23/22 11:04 DL Document 07/30/22 10:28 AK [id number] 07/30/22 10:30 AK (1) #2 L lower calf- post op - NPWT Application Charge NPWT </= 50 sq cm => NPWT & Debridement ($) => (nc) 07/09/22 07/16/22 07/23/22 14:55 09:35 11:02 Wound Care Center Nurse 3 #2 L lower calf- post op -Ulcer Cleansing Rinsed/ Rinsed/ Soap and Water Irrigated with Irrigated with Saline Saline -Foul Odor after Cleansing No No No -Negative Pressure Wound Therapy Continue Continue Continue -Setting (mmHg) 150 150 150 -Negative Pressure is Continuous Continuous Continuous -Regranex (If Applicable) Continue -Primary Dressing Applied NonAdherent Contact Layer -Other Dressing adaptic over tendon - Laly L. put on wound vac -Primary Dressing Covered/Secured with -NPWT Application Charge NPWT </= 50 sq NPWT & NPWT </= 50 sq cm ($) Debridement (nc cm ($) ) -Mepilex Border Left -Compression Wrap -Compression Wrap Tom Wrap Tom Wrap Treatment Response Procedure Procedure Tolerated Well Tolerated Well Pain Scale: 0-10 Numeric Is Patient Pain Free? Yes No No left achilles ulcer -Description Dull -Intensity 3 -Pain Behavior Withdrawal from Touch -Alleviating Factors/Interventions Inactivity/ Resting -Comments Pain with debridement Teaching: Wound Center Dressing Your Wound -Person Taught Patient -Teaching Method Discussion, Demonstration, Teach back -Response to teaching Verbalize understanding WC - Visit Discharge Discharge Condition Stable Stable Stable Ambulatory Status Ambulatory Ambulatory Ambulatory Transportation Private Auto Private Auto Private Auto Medication Reconcilliation completed & Yes provided to patient/care provider Clinical Summary of Care Provided Yes Facility Type [facility] Orders Sent Yes Yes 07/30/22 10:28 Wound Care Center Nurse 3 #2 L lower calf- post op -Ulcer Cleansing Rinsed/ Irrigated with Saline -Foul Odor after Cleansing No -Negative Pressure Wound Therapy N/A -Setting (mmHg) -Negative Pressure is -Regranex (If Applicable) -Primary Dressing Applied Mepilex Border -Other Dressing dakins wet to dry -Primary Dressing Covered/Secured with Dry Gauze, Secured with Tape -NPWT Application Charge -Mepilex Border 1 Left -Compression Wrap Tom Wrap -Compression Wrap Treatment Response Pain Scale: 0-10 Numeric Is Patient Pain Free? Yes left achilles ulcer -Description -Intensity -Pain Behavior -Alleviating Factors/Interventions -Comments Teaching: Wound Center Dressing Your Wound -Person Taught -Teaching Method -Response to teaching WC - Visit Discharge Discharge Condition Stable Ambulatory Status Ambulatory Transportation Private Auto Medication Reconcilliation completed & Yes provided to patient/care provider Clinical Summary of Care Provided Yes Facility Type Orders Sent Assessment/Plan Assessment/Plan (1) Contusion of left lower extremity: CODE(S): S80.12XA - Contusion of left lower leg, initial encounter (2) Abrasion of left lower extremity: CODE(S): S80.812A - Abrasion, left lower leg, initial encounter (3) Abscess of left lower extremity: CODE(S): L02.416 - Cutaneous abscess of left lower limb (4) Other acute postprocedural pain: CODE(S): G89.18 - Other acute postprocedural pain (5) Anxiety: CODE(S): F41.9 - Anxiety disorder, unspecified (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 She states the increase in her Prozac has been helping with her anxiety and depression. Wound care - Will take a VAC holiday this week for her son's wedding. Will place Dakin's 0.25% moistened gauze covered ABD/super absorber dressing daily after washing the ulcer and nilsa wound with soap and water daily. Place an TOM wrap for compression. Operative cultures positive for Enterococcus faecalis, Bacteroides stercoris and Peptoniphilus asaccharoyticus, she is on Augmentin and probiotic. Instructed her to keep her leg elevated when sitting. Will keep her off work until she has better pain control and is able to ambulate easier. Tentative return to work is 08/27/22. She states the increase in Gabapentin is still not helping her burning pain. Will increase the AM and PM dose to 600 mg and if she needs 300 mg in the middle of the day, she may take that. Her pain is more controlled this week with taking Tylenol or Ibuprofen with Percocet for breakthrough pain. Instructed her to get out of the car and walk every 1-1.5 hours while traveling to and from her son's wedding. She has a family member who is a wound care nurse who will be helping her with her dressing changes. She is allowed to remove her dressing and shower daily. Follow up one week. Call or come in sooner with any concerns.
== END 2022-07-31 23:59 | disposition home or self-care (01) ==
LOC: WC 09:00
PROVIDERS: PCP Student in an Organized Health Care Education/Training Program; Visit Provider Nurse Practitioner Family
DX: L02.416 Cutaneous abscess of left lower limb (principal); L97.822 Non-pressure chronic ulcer of other part of left lower leg with fat layer exposed; S80.812S Abrasion, left lower leg, sequela; S80.12XS Contusion of left lower leg, sequela; V83 Occupant of special vehicle mainly used on industrial premises injured in transport accident; F41.9 Anxiety disorder, unspecified; Z79.899 Other long term (current) drug therapy; S87.82XS Crushing injury of left lower leg, sequela
CPT/HCPCS: 11043; 97605; 99213; G0463

== ENCOUNTER 2022-08-27 08:45 | Outpatient (RCR) | payer OTHER, SELFPAY ==
[2022-08-01 00:38] VITALS: BP 112/76; PULSE 95; RESP 18; TEMP 36.2; BMI 26.6
[2022-08-08 08:51] VITALS: BP 122/76; PULSE 86; RESP 20; TEMP 36.3; BMI 26.6
--- NOTE | 2022-08-08 10:43 | PN.PCM_ITS ---
History of Present Illness Date of Service: 08/08/22 Chief Complaint: Left distal posterior traumatic hematoma/ulcer History of Wound: 52 year old female presents to the wound healing center for evaluation of her left distal posterior leg ulcer that occurred on 05/31/22 while working at [employer]. 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 She states that it initially has a superficial wound with bruising. She was sent to [facility] for evaluation and they have been monitoring her injury. The bruising became more pronounced a couple days after she was seen at [facility]. She states that it has started to become very painful over the past couple weeks and worsened last week when she developed a black scab and now has redness surrounding the ulcer. She presents today to the wound center for further evaluation. She currently on Bactrim from her PCP for a UTI and she was told it would help with bacterial growth from the ulcer. She is denying and drainage from the ulcer. She initially was treating with hydrogen peroxide and antibiotic ointment. 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 She denies any other medical history. Surgery 07/05/22 - Surgical preparation left posterior leg with incision and drainage and evacuation and excisional debridement traumatic hematoma abscess with overlying skin necrosis (18 cm2). Preliminary operative culture shows Enterococcus faecalis. Progress of Wound: Took a vac holiday for her son's wedding. She states that she would like the wound VAC back on, she feels more comfortable with it on. She states her pain is ok. She believes she has more pain without the wound VAC. Her ulcer is nice beefy pink. The tendon does appear to have more coverage. Objective Data Objective Data Vital Signs: Vital Signs Temp Pulse Resp BP 97.4 F L 86 20 H 122/76 H 08/08/22 08:51 08/08/22 08:51 08/08/22 08:51 08/08/22 08:51 Weight: 150 lb 11.094 oz Body Mass Index (BMI) 26.6 Charges/Coding Procedures Integumentary 111xxx-113xx: 76264 Global Visit Debridement Note Debridement Note Wound debrided: Posterior leg ulcer Laterality: Left Wound Grade/Stage: Stage IV Type of Debridement: Excisional debridement Anesthesia Used: 5% Lidocaine Gel Depth: Down to and including healthy tissue, in the subcutaneous layer and to muscle Percentage of wound debrided: 100 Instrument Used: 5mm curette Tissue Removed: Devitalized tissue and slough Severity: Fat Layer Exposed Amount of bleeding with debridement: Mild Bleeding Controlled with: Pressure and Compression and gauze Patient tolerated procedure: Patient tolerated procedure well Post-Debridement Measurements and Additional Note: Post-Debridement Measurements/Treatment - Nurse 1 - General Ulcer Assessment Start: 08/08/22 08:51 Freq: Status: Active Protocol: TOMASZ Activity Type Activity Date Activity User E-sign Co-sign Detail Recorded Client Recorded Date Recorded By Document 08/08/22 08:51 DL [id number] 08/08/22 08:55 DL 08/08/22 08:51 WC - Today's Visit Information Type of service 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 ) Arrival Mode Ambulatory Transfer Assistance None Patient Identification Verified (Name & Yes ) Patient Requires Transmission-Based No Precautions Height and Weight Body Mass Index (BMI) 26.6 BMI Classification Overweight Vital Signs Temperature (97.8 F-99.1 F) 97.4 F L Temperature Source Temporal Pulse Rate (60-100) 86 Pulse Location Monitor Respiratory Rate (12-18) 20 H Respiratory rate source Observation Blood Pressure (90/60-120/80) 122/76 H Blood Pressure Mean (mm Hg) 91 Source Monitor History Since Last Visit- (Skip if this is Patient's initial visit) Have you changed medications since your No last visit? Any new allergies or adverse reactions No Had a fall/change in ADL's that may No increase risk of falls Signs or symptoms of abuse and/or No neglect since last visit Have you been in the hospital since your No last visit? Has dressing in place as prescribed No Has compression in place as prescribed Yes Has offloadiing in place as prescribed N/A Pain Scale: 0-10 Numeric Is Patient Pain Free? Yes - Nurse 1 - General Ulcer Measurement Start: 08/08/22 08:51 Freq: Status: Active Protocol: Activity Type Activity Date Activity User E-sign Co-sign Detail Recorded Client Recorded Date Recorded By Document 08/08/22 08:51 DL [id number] 08/08/22 08:55 DL 08/08/22 08:51 Wound Center Nurse 1 #2 L lower calf- post op -Current Size (cm) - Length 4.2 -Current Size (cm) - Width 3.4 -Current Size (cm) - Depth 0.6 -Total Square Cm 14.28 -Photo Taken Yes -Exudate Amt Medium -Exudate Type Serosanguineous -Wound Margin Distinct, Outline Attached -Granulation Amt Large (67-100%) -Granulation Quality Red -Necrosis Amt Small (1-33%) -Necrotic Tissue Type Adherent Slough -Structure Exposed Tendon -Texture (Nilsa-wound Skin Appearance) Scarring -Moisture (Nilsa-wound Skin Appearance) No Abnormality -Color (Nilsa-wound Skin Appearance) No Abnormality -Temperature (Nilsa-wound Skin No Abnormality Appearance) (Pt Warm) -Tenderness on Palpation (Nilsa-wound No Skin Appearance) -Ulcer Cleansing Soap and Water -Foul Odor after Cleansing No -Anesthetic Used 5% Lidocaine Gel Left Calf (cm) 34.5 Left Ankle (cm) 21 WC - Nurse 2 - General Ulcer CM Notes Start: 08/08/22 08:51 Freq: Status: Active Protocol: Activity Type Activity Date Activity User E-sign Co-sign Detail Recorded Client Recorded Date Recorded By Document 08/08/22 09:13 AAMIR [id number] 08/08/22 09:15 AAMIR 08/08/22 09:13 Wound Center Nurse 2 #2 L lower calf- post op -Time 09:13 -Correct Patient Yes -Correct Side, Site, Position Yes -Correct Procedure Yes -Procedure Performed Yes -Type of Procedure Debridement -Clinical Debridement Muscle / Fascia -Tissue Removed Muscle,Tendon -Post Debridement (cm) - Length 4.2 -Post Debridement (cm) - Width 3.8 -Post Debridement (cm) - Depth 0.4 -Total Square (Post) (cm) 15.96 -Area of Debridement (cm) - Length 4.2 -Area of Debridement (cm) - Width 3.8 -Total Square (Area) (cm) 15.96 -Tunneling No -Undermining/Tunneling No -Circular Undermining No -Wound/Ulcer Outcome Not Healed -Ulcer Cleansing Rinsed/ Irrigated with Saline -Foul Odor after Cleansing No -Bioengineered Tissue No -Bleeding Controlled with Pressure -Treatment Response Procedure Tolerated Well -Offloading No -Debridement - Muscle / Fascia, 1st Yes 20sq cm Pain Scale: 0-10 Numeric Is Patient Pain Free? Yes - Nurse 3 - General Ulcer D/C NN Start: 08/08/22 08:51 Freq: Status: Active Protocol: Activity Type Activity Date Activity User E-sign Co-sign Detail Recorded Client Recorded Date Recorded By Document 08/08/22 09:49 [facility] [id number] 08/08/22 09:51 [facility] 08/08/22 09:49 Wound Care Center Nurse 3 #2 L lower calf- post op -Ulcer Cleansing Rinsed/ Irrigated with Saline -Foul Odor after Cleansing No -Negative Pressure Wound Therapy Continue -Setting (mmHg) 150 -Negative Pressure is Continuous -NPWT Application Charge NPWT & Debridement (nc ) Left -Compression Wrap Tom Wrap Treatment Response Procedure Tolerated Well Pain Scale: 0-10 Numeric Is Patient Pain Free? 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 She states the increase in her Prozac has been helping with her anxiety and depression. Wound care - Wound VAC at 150 mmHg to be changed 3 times a week after washing the ulcer and nilsa wound with soap and water daily. Place an TOM wrap for compression. Operative cultures positive for Enterococcus faecalis, Bacteroides stercoris and Peptoniphilus asaccharoyticus, she is on Augmentin and probiotic. Instructed her to keep her leg elevated when sitting. Recheck Hgb 11.8 from 07/17/22. Will keep her off work until she has better pain control and is able to ambulate easier. Tentative return to work is 08/29/22. She states the increase in Gabapentin seems to be starting to work on her burning nerve pain. Her pain is more controlled with taking Tylenol or Ibuprofen with Percocet for breakthrough pain. Renewed Percocet (14 tabs) and Ibuprofen. PDMP reveiwed. . Follow up one week. Call or come in sooner with any concerns.
[2022-08-13 08:55] VITALS: BP 128/72; PULSE 101; RESP 16; TEMP 36.2; BMI 26.6
--- NOTE | 2022-08-13 11:41 | PN.PCM_ITS ---
History of Present Illness Date of Service: 08/13/22 Chief Complaint: Left distal posterior traumatic hematoma/ulcer History of Wound: 52 year old female presents to the wound healing center for evaluation of her left distal posterior leg ulcer that occurred on 05/31/22 while working at [employer]. 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 She states that it initially has a superficial wound with bruising. She was sent to [facility] for evaluation and they have been monitoring her injury. The bruising became more pronounced a couple days after she was seen at [facility]. She states that it has started to become very painful over the past couple weeks and worsened last week when she developed a black scab and now has redness surrounding the ulcer. She presents today to the wound center for further evaluation. She currently on Bactrim from her PCP for a UTI and she was told it would help with bacterial growth from the ulcer. She is denying and drainage from the ulcer. She initially was treating with hydrogen peroxide and antibiotic ointment. 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 She denies any other medical history. Surgery 07/05/22 - Surgical preparation left posterior leg with incision and drainage and evacuation and excisional debridement traumatic hematoma abscess with overlying skin necrosis (18 cm2). Preliminary operative culture shows Enterococcus faecalis. Progress of Wound: Her ulcer is improving. The tendon has more granulation tissue coverage. Patient is very tearful. She states that she has been having nightmares of getting hit by the tow motor. She also is having issues when she is home alone with smelling the exhaust from the tow motor. She states that the increase in her Prozaac has been helpful. She denies any panic attacks. She continues to have pain all the time no matter if she is active or resting with her leg elevated. She does not like to take pain medication because she doesn't like how it makes her feel. Objective Data Objective Data Vital Signs: Vital Signs Temp Pulse Resp BP O2 Del Method 97.2 F L 101 H 16 128/72 H Room Air 08/13/22 08:55 08/13/22 08:55 08/13/22 08:55 08/13/22 08:55 08/13/22 08:55 Oxygen Delivery Method Room Air Weight: 150 lb 11.094 oz Body Mass Index (BMI) 26.6 Charges/Coding Procedures Integumentary 111xxx-113xx: 87920 Global Visit Debridement Note Debridement Note Wound debrided: Posterior leg ulcer Laterality: Left Wound Grade/Stage: Stage IV Type of Debridement: Excisional debridement Anesthesia Used: 5% Lidocaine Gel Depth: Down to and including healthy tissue, in the subcutaneous layer and to muscle Percentage of wound debrided: 100 Instrument Used: 5mm curette Tissue Removed: Devitalized tissue and slough Severity: Fat Layer Exposed Amount of bleeding with debridement: Mild Bleeding Controlled with: Pressure and Compression and gauze Patient tolerated procedure: Patient tolerated procedure well Post-Debridement Measurements and Additional Note: Post-Debridement Measurements/Treatment WC - Nurse 1 - General Ulcer Assessment Start: 08/08/22 08:51 Freq: Status: Active Protocol: TOMASZ Activity Type Activity Date Activity User E-sign Co-sign Detail Recorded Client Recorded Date Recorded By Document 08/08/22 08:51 DL [id number] 08/08/22 08:55 DL Document 08/13/22 08:55 [facility] [id number] 08/13/22 09:01 BMF 08/08/22 08/13/22 08:51 08:55 - Today's Visit Information Type of service Follow-up Visit Follow-up Visit (Physician/DESIGN TECHNOLOGY TEACHER (Physician/DESIGN TECHNOLOGY TEACHER ) ) Arrival Mode Ambulatory Ambulatory Transfer Assistance None None Patient Identification Verified (Name & Yes Yes ) Patient Requires Transmission-Based No No Precautions Height and Weight Body Mass Index (BMI) 26.6 26.6 BMI Classification Overweight Overweight Vital Signs Temperature (97.8 F-99.1 F) 97.4 F L 97.2 F L Temperature Source Temporal Temporal Pulse Rate (60-100) 86 101 H Pulse Location Monitor Monitor Respiratory Rate (12-18) 20 H 16 Respiratory rate source Observation Observation Oxygen Delivery Method Room Air Blood Pressure (90/60-120/80) 122/76 H 128/72 H Blood Pressure Mean (mm Hg) 91 90 Source Monitor Monitor Position Sitting Blood Pressure Location Right Arm History Since Last Visit- (Skip if this is Patient's initial visit) Have you changed medications since your No No last visit? Any new allergies or adverse reactions No No Had a fall/change in ADL's that may No No increase risk of falls Signs or symptoms of abuse and/or No No neglect since last visit Have you been in the hospital since your No No last visit? Has dressing in place as prescribed No Yes Has compression in place as prescribed Yes N/A Has offloadiing in place as prescribed N/A N/A Experienced any changes in pain level or No management Left Footwear Regular Shoe Right Footwear Regular Shoe Pain Scale: 0-10 Numeric Is Patient Pain Free? Yes Yes WC - Nurse 1 - General Ulcer Measurement Start: 08/08/22 08:51 Freq: Status: Active Protocol: Activity Type Activity Date Activity User E-sign Co-sign Detail Recorded Client Recorded Date Recorded By Document 08/08/22 08:51 DL [id number] 08/08/22 08:55 DL Document 08/13/22 08:55 [facility] [id number] 08/13/22 09:01 BMF 08/08/22 08/13/22 08:51 08:55 Wound Center Nurse 1 #2 L lower calf- post op -Combined with other wound No -Current Size (cm) - Length 4.2 4 -Current Size (cm) - Width 3.4 4 -Current Size (cm) - Depth 0.6 0.4 -Total Square Cm 14.28 16 -Date of Last Picture (Recall this 08/13/22 field) -Photo Taken Yes Yes -Epithelialization Small 1-33% -Tunneling No -Undermining/Tunneling Yes -Undermining/Tunneling Starts (O'clock 8 ) -Undermining/Tunneling Ends (O'clock) 9 -Maximum Distance (cm) 0.5 -Circular Undermining No -Exudate Amt Medium Large -Exudate Type Serosanguineous Yellow/Green -Wound Margin Distinct, Distinct, Outline Outline Attached Attached -Granulation Amt Large (67-100%) Large (67-100%) -Granulation Quality Red Hyper- granulation,Red -Slough/Fibrin Yes -Necrosis Amt Small (1-33%) Small (1-33%) -Necrotic Tissue Type Adherent Slough Adherent Slough -Structure Exposed Tendon Tendon -Texture (Nilsa-wound Skin Appearance) Scarring Assessed, Scarring -Moisture (Nilsa-wound Skin Appearance) No Abnormality Assessed -Color (Nilsa-wound Skin Appearance) No Abnormality Assessed -Temperature (Nilsa-wound Skin No Abnormality No Abnormality Appearance) (Pt Warm) (Pt Warm) -Tenderness on Palpation (Nilsa-wound No No Skin Appearance) -Ulcer Cleansing Soap and Water Soap and Water -Foul Odor after Cleansing No No -Anesthetic Used 5% Lidocaine 5% Lidocaine Gel Gel Left Calf (cm) 34.5 Left Ankle (cm) 21 WC - Nurse 2 - General Ulcer CM Notes Start: 08/08/22 08:51 Freq: Status: Active Protocol: Activity Type Activity Date Activity User E-sign Co-sign Detail Recorded Client Recorded Date Recorded By Document 08/08/22 09:13 AAMIR [id number] 08/08/22 09:15 JF Document 08/13/22 09:31 [id number] 08/13/22 09:48 JF Edit Result 08/13/22 09:31 JF (1) [id number] 08/13/22 09:51 JF (1) #2 L lower calf- post op - Clinical Debridement Subcutaneous => Muscle / Fascia - Tissue Removed Subcutaneous => Muscle,Fascia - Debridement - Subq, 1st 20sq cm Yes => No 08/08/22 08/13/22 09:13 09:31 Wound Center Nurse 2 #2 L lower calf- post op -Time 09:13 09:34 -Correct Patient Yes Yes -Correct Side, Site, Position Yes Yes -Correct Procedure Yes Yes -Procedure Performed Yes Yes -Type of Procedure Debridement Debridement -Clinical Debridement Muscle / Fascia Muscle / Fascia -Tissue Removed Muscle,Tendon Muscle,Fascia -Post Debridement (cm) - Length 4.2 4.0 -Post Debridement (cm) - Width 3.8 3.4 -Post Debridement (cm) - Depth 0.4 0.3 -Total Square (Post) (cm) 15.96 13.60 -Area of Debridement (cm) - Length 4.2 4.0 -Area of Debridement (cm) - Width 3.8 3.4 -Total Square (Area) (cm) 15.96 13.60 -Tunneling No No -Undermining/Tunneling No Yes -Undermining/Tunneling Starts (O'clock 7 ) -Undermining/Tunneling Ends (O'clock) 10 -Maximum Distance (cm) 0.6 -Circular Undermining No No -Wound/Ulcer Outcome Not Healed Not Healed -Ulcer Cleansing Rinsed/ Rinsed/ Irrigated with Irrigated with Saline Saline -Foul Odor after Cleansing No No -Bioengineered Tissue No No -Bleeding Controlled with Pressure Pressure -Treatment Response Procedure Procedure Tolerated Well Tolerated Well -Offloading No No -Debridement - Subq, 1st 20sq cm No -Debridement - Muscle / Fascia, 1st Yes Yes 20sq cm Pain Scale: 0-10 Numeric Is Patient Pain Free? Yes Yes - Nurse 3 - General Ulcer D/C NN Start: 08/08/22 08:51 Freq: Status: Active Protocol: Activity Type Activity Date Activity User E-sign Co-sign Detail Recorded Client Recorded Date Recorded By Document 08/08/22 09:49 [facility] [id number] 08/08/22 09:51 [facility] Document 08/13/22 10:15 [facility] [id number] 08/13/22 10:15 [facility] 08/08/22 08/13/22 09:49 10:15 Wound Care Center Nurse 3 #2 L lower calf- post op -Ulcer Cleansing Rinsed/ Rinsed/ Irrigated with Irrigated with Saline Saline -Foul Odor after Cleansing No No -Negative Pressure Wound Therapy Continue Continue -Setting (mmHg) 150 150 -Negative Pressure is Continuous Continuous -NPWT Application Charge NPWT & NPWT & Debridement (nc Debridement (nc ) ) Left -Compression Wrap Tom Wrap Tom Wrap Treatment Response Procedure Procedure Tolerated Well Tolerated Well Pain Scale: 0-10 Numeric Is Patient Pain Free? Yes Yes - Visit Discharge Discharge Condition Stable Stable Ambulatory Status Ambulatory Ambulatory Transportation [facility] Type Home Health Assessment/Plan Assessment/Plan (1) Contusion of left lower extremity: CODE(S): S80.12XA - Contusion of left lower leg, initial encounter (2) Abrasion of left lower extremity: CODE(S): S80.812A - Abrasion, left lower leg, initial encounter (3) Abscess of left lower extremity: CODE(S): L02.416 - Cutaneous abscess of left lower limb (4) Other acute postprocedural pain: CODE(S): G89.18 - Other acute postprocedural pain (5) Anxiety: CODE(S): F41.9 - Anxiety disorder, unspecified (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 She states the increase in her Prozac has been helping with her anxiety and depression although she states she is having nightmares and smelling the tow motor. I recommended that she get some counseling to help her deal with these issues. Will apply to [employer] comp to get approval for counseling. Wound care - Wound VAC at 150 mmHg to be changed 3 times a week after washing the ulcer and nilsa wound with soap and water daily. Place an TOM wrap for compression. Operative cultures positive for Enterococcus faecalis, Bacteroides stercoris and Peptoniphilus asaccharoyticus, she is on Augmentin and probiotic. Instructed her to keep her leg elevated when sitting. Recheck Hgb 11.8 from 07/17/22. Will keep her off work until she has better pain control and is able to ambulate easier. Tentative return to work is 08/29/22. She continues to have pain, it doesn't matter if she is active or resting, she states that she is always having pain. She doesn't like to take pain medication, but she has been taking ibuprofen to help with the discomfort. Follow up one week. Call or come in sooner with any concerns.
[2022-08-20 11:15] VITALS: BP 118/87; PULSE 87; RESP 16; TEMP 35.7; BMI 26.6
--- NOTE | 2022-08-20 11:57 | PCM.WC.PN ---
History of Present Illness Date of Service: 08/20/22 Chief Complaint: Left distal posterior traumatic hematoma/ulcer History of Wound: 52 year old female presents to the wound healing center for evaluation of her left distal posterior leg ulcer that occurred on 05/31/22 while working at [employer] (formerly [employer]). 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 She states that it initially has a superficial wound with bruising. She was sent to [facility] for evaluation and they have been monitoring her injury. The bruising became more pronounced a couple days after she was seen at [facility]. She states that it has started to become very painful over the past couple weeks and worsened last week when she developed a black scab and now has redness surrounding the ulcer. She presents today to the wound center for further evaluation. She currently on Bactrim from her PCP for a UTI and she was told it would help with bacterial growth from the ulcer. She is denying and drainage from the ulcer. She initially was treating with hydrogen peroxide and antibiotic ointment. 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 She denies any other medical history. Surgery 07/05/22 - Surgical preparation left posterior leg with incision and drainage and evacuation and excisional debridement traumatic hematoma abscess with overlying skin necrosis (18 cm2). Operative culture shows Enterococcus faecalis, Bacteroides stercoris, and Peptoniphilus asaccharolyticus. Progress of Wound: Her ulcer is improving. The tendon is almost covered with granulation tissue. The base of the ulcer is beefy pink. Patient continues to have pain, mostly a burning pain. She is tolerating the wound VAC well. Objective Data Objective Data Vital Signs: Vital Signs Temp Pulse Resp BP O2 Del Method 96.3 F L 87 16 118/87 H Room Air 08/20/22 11:15 08/20/22 11:15 08/20/22 11:15 08/20/22 11:15 08/20/22 11:15 Oxygen Delivery Method Room Air Weight: 150 lb 11.094 oz Body Mass Index (BMI) 26.6 Charges/Coding Procedures Integumentary 111xxx-113xx: [id number] Global Visit Debridement Note Debridement Note Wound debrided: Posterior leg ulcer Laterality: Left Wound Grade/Stage: Stage IV Type of Debridement: Excisional debridement Anesthesia Used: 5% Lidocaine Gel Depth: Down to and including healthy tissue, in the subcutaneous layer and to muscle Percentage of wound debrided: 100 Instrument Used: 7mm curette Tissue Removed: Devitalized tissue and slough into the muscle Severity: Fat Layer Exposed Amount of bleeding with debridement: Mild Bleeding Controlled with: Pressure and Compression and gauze Patient tolerated procedure: Patient tolerated procedure well Post-Debridement Measurements and Additional Note: Post-Debridement Measurements/Treatment - Nurse 1 - General Ulcer Assessment Start: 08/08/22 08:51 Freq: Status: Active Protocol: TOMASZ Activity Type Activity Date Activity User E-sign Co-sign Detail Recorded Client Recorded Date Recorded By Document 08/08/22 08:51 DL [id number] 08/08/22 08:55 DL Document 08/13/22 08:55 [facility] [id number] 08/13/22 09:01 BM Document 08/20/22 11:15 [facility] [id number] 08/20/22 11:23 [facility] 08/08/22 08/13/22 08/20/22 08:51 08:55 11:15 - Today's Visit Information Type of service Follow-up Visit Follow-up Visit Follow-up Visit (Physician/WOODYARD OPERATOR (Physician/WOODYARD OPERATOR (Physician/WOODYARD OPERATOR ) ) ) Arrival Mode Ambulatory Ambulatory Ambulatory Transfer Assistance None None None Accompanied by Patient Identification Verified (Name & Yes Yes Yes ) Patient Requires Transmission-Based No No No Precautions Height and Weight Body Mass Index (BMI) 26.6 26.6 26.6 BMI Classification Overweight Overweight Overweight Vital Signs Temperature (97.8 F-99.1 F) 97.4 F L 97.2 F L 96.3 F L Temperature Source Temporal Temporal Temporal Pulse Rate (60-100) 86 101 H 87 Pulse Location Monitor Monitor Monitor Respiratory Rate (12-18) 20 H 16 16 Respiratory rate source Observation Observation Observation Oxygen Delivery Method Room Air Room Air Blood Pressure (90/60-120/80) 122/76 H 128/72 H 118/87 H Blood Pressure Mean (mm Hg) 91 90 97 Source Monitor Monitor Monitor Position Sitting Sitting Blood Pressure Location Right Arm Left Arm History Since Last Visit- (Skip if this is Patient's initial visit) Have you changed medications since your No No No last visit? Any new allergies or adverse reactions No No No Had a fall/change in ADL's that may No No No increase risk of falls Signs or symptoms of abuse and/or No No No neglect since last visit Have you been in the hospital since your No No No last visit? Has dressing in place as prescribed No Yes Yes Has compression in place as prescribed Yes N/A N/A Has offloadiing in place as prescribed N/A N/A N/A Experienced any changes in pain level or No No management Left Footwear Regular Shoe Regular Shoe Right Footwear Regular Shoe Regular Shoe Pain Scale: 0-10 Numeric Is Patient Pain Free? Yes Yes Yes WC - Nurse 1 - General Ulcer Measurement Start: 08/08/22 08:51 Freq: Status: Active Protocol: Activity Type Activity Date Activity User E-sign Co-sign Detail Recorded Client Recorded Date Recorded By Document 08/08/22 08:51 DL [id number] 08/08/22 08:55 DL Document 08/13/22 08:55 [facility] [id number] 08/13/22 09:01 BMF Document 08/20/22 11:15 [facility] [id number] 08/20/22 11:23 BMF 08/08/22 08/13/22 08/20/22 08:51 08:55 11:15 Wound Center Nurse 1 #2 L lower calf- post op -Combined with other wound No No -Current Size (cm) - Length 4.2 4 4 -Current Size (cm) - Width 3.4 4 3.5 -Current Size (cm) - Depth 0.6 0.4 0.2 -Total Square Cm 14.28 16 14.0 -Date of Last Picture (Recall this 08/13/22 08/20/22 field) -Photo Taken Yes Yes Yes -Epithelialization Small 1-33% Small 1-33% -Tunneling No No -Undermining/Tunneling Yes No -Undermining/Tunneling Starts (O'clock 8 ) -Undermining/Tunneling Ends (O'clock) 9 -Maximum Distance (cm) 0.5 -Circular Undermining No No -Exudate Amt Medium Large Medium -Exudate Type Serosanguineous Yellow/Green Serosanguineous -Wound Margin Distinct, Distinct, Distinct, Outline Outline Outline Attached Attached Attached -Granulation Amt Large (67-100%) Large (67-100%) Large (67-100%) -Granulation Quality Red Hyper- [place] granulation,Red -Slough/Fibrin Yes Yes -Necrosis Amt Small (1-33%) Small (1-33%) Small (1-33%) -Necrotic Tissue Type Adherent Slough Adherent Slough Adherent Slough -Structure Exposed Tendon Tendon Tendon -Texture (Nilsa-wound Skin Appearance) Scarring Assessed, Assessed, Scarring Scarring -Moisture (Nilsa-wound Skin Appearance) No Abnormality Assessed Assessed -Color (Nilsa-wound Skin Appearance) No Abnormality Assessed Assessed -Temperature (Nilsa-wound Skin No Abnormality No Abnormality No Abnormality Appearance) (Pt Warm) (Pt Warm) (Pt Warm) -Tenderness on Palpation (Nilsa-wound No No No Skin Appearance) -Ulcer Cleansing Soap and Water Soap and Water Soap and Water -Foul Odor after Cleansing No No No -Anesthetic Used 5% Lidocaine 5% Lidocaine 5% Lidocaine Gel Gel Gel Left Calf (cm) 34.5 Left Ankle (cm) 21 - Nurse 2 - General Ulcer CM Notes Start: 08/08/22 08:51 Freq: Status: Active Protocol: Activity Type Activity Date Activity User E-sign Co-sign Detail Recorded Client Recorded Date Recorded By Document 08/08/22 09:13 [id number] 08/08/22 09:15 Document 08/13/22 09:31 [id number] 08/13/22 09:48 Edit Result 08/13/22 09:31 (1) [id number] 08/13/22 09:51 Document 08/20/22 11:34 [id number] 08/20/22 11:38 JF (1) #2 L lower calf- post op - Clinical Debridement Subcutaneous => Muscle / Fascia - Tissue Removed Subcutaneous => Muscle,Fascia - Debridement - Subq, 1st 20sq cm Yes => No 08/08/22 08/13/22 08/20/22 09:13 09:31 11:34 Wound Center Nurse 2 #2 L lower calf- post op -Time 09:13 09:34 11:35 -Correct Patient Yes Yes Yes -Correct Side, Site, Position Yes Yes Yes -Correct Procedure Yes Yes Yes -Procedure Performed Yes Yes Yes -Type of Procedure Debridement Debridement Debridement -Clinical Debridement Muscle / Fascia Muscle / Fascia Muscle / Fascia -Tissue Removed Muscle,Tendon Muscle,Fascia Muscle,Fascia -Post Debridement (cm) - Length 4.2 4.0 4.0 -Post Debridement (cm) - Width 3.8 3.4 3.6 -Post Debridement (cm) - Depth 0.4 0.3 0.3 -Total Square (Post) (cm) 15.96 13.60 14.40 -Area of Debridement (cm) - Length 4.2 4.0 4.0 -Area of Debridement (cm) - Width 3.8 3.4 3.6 -Total Square (Area) (cm) 15.96 13.60 14.40 -Tunneling No No No -Undermining/Tunneling No Yes No -Undermining/Tunneling Starts (O'clock 7 ) -Undermining/Tunneling Ends (O'clock) 10 -Maximum Distance (cm) 0.6 -Circular Undermining No No No -Wound/Ulcer Outcome Not Healed Not Healed Not Healed -Ulcer Cleansing Rinsed/ Rinsed/ Rinsed/ Irrigated with Irrigated with Irrigated with Saline Saline Saline -Foul Odor after Cleansing No No No -Bioengineered Tissue No No No -Bleeding Controlled with Pressure Pressure Pressure -Treatment Response Procedure Procedure Procedure Tolerated Well Tolerated Well Tolerated Well -Offloading No No No -Debridement - Subq, 1st 20sq cm No -Debridement - Muscle / Fascia, 1st Yes Yes Yes 20sq cm Pain Scale: 0-10 Numeric Is Patient Pain Free? Yes Yes Yes WC - Nurse 3 - General Ulcer D/C NN Start: 08/08/22 08:51 Freq: Status: Active Protocol: Activity Type Activity Date Activity User E-sign Co-sign Detail Recorded Client Recorded Date Recorded By Document 08/08/22 09:49 [facility] [id number] 08/08/22 09:51 [facility] Document 08/13/22 10:15 [facility] [id number] 08/13/22 10:15 [facility] Document 08/20/22 11:51 [place] [id number] 08/20/22 11:52 AK 08/08/22 08/13/22 08/20/22 09:49 10:15 11:51 Wound Care Center Nurse 3 #2 L lower calf- post op -Ulcer Cleansing Rinsed/ Rinsed/ Rinsed/ Irrigated with Irrigated with Irrigated with Saline Saline Saline -Foul Odor after Cleansing No No No -Negative Pressure Wound Therapy Continue Continue N/A -Setting (mmHg) 150 150 -Negative Pressure is Continuous Continuous -NPWT Application Charge NPWT & NPWT & NPWT </= 50 sq Debridement (nc Debridement (nc cm ($) ) ) Left -Compression Wrap Tom Wrap Tom Wrap Treatment Response Procedure Procedure Tolerated Well Tolerated Well Pain Scale: 0-10 Numeric Is Patient Pain Free? Yes Yes No WC - Visit Discharge Discharge Condition Stable Stable Stable Ambulatory Status Ambulatory Ambulatory Ambulatory Transportation Private Auto Private Auto Private Auto Accompanied by Medication Reconcilliation completed & Yes provided to patient/care provider Clinical Summary of Care Provided Yes Facility Type Home Health Assessment/Plan Assessment/Plan (1) Contusion of left lower extremity: CODE(S): S80.12XA - Contusion of left lower leg, initial encounter (2) Abrasion of left lower extremity: CODE(S): S80.812A - Abrasion, left lower leg, initial encounter (3) Abscess of left lower extremity: CODE(S): L02.416 - Cutaneous abscess of left lower limb (4) Other acute postprocedural pain: CODE(S): G89.18 - Other acute postprocedural pain (5) Anxiety: CODE(S): F41.9 - Anxiety disorder, unspecified (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 She states the increase in her Prozac has been helping with her anxiety and depression although she states she is having nightmares and smelling the tow motor. I recommended that she get some counseling to help her deal with these issues. Sent a C9 into [employer] to get approval for counseling, we have not heard anything yet. Wound care - Wound VAC at 150 mmHg to be changed 3 times a week after washing the ulcer and nilsa wound with soap and water daily. Place an TOM wrap for compression. She would benefit from an advanced would care product such as Theraskin to help with her wound healing. Will seek approval from [employer] for this. If Theraskin is approved, I may continue the wound VAC in conjunction with the advanced wound product. Operative cultures positive for Enterococcus faecalis, Bacteroides stercoris and Peptoniphilus asaccharoyticus, she was treated with Augmentin and probiotic. Instructed her to keep her leg elevated when sitting. Recheck Hgb 11.8 from 07/17/22. Will keep her off work until she has better pain control and is able to ambulate easier. Tentative return to work is 10/01/22. She continues to have pain. I instructed her to try to cut back on the Ibuprofen since she has a history of the gastric surgery. I don't want to increase her risk for a GI bleed. She verbalized understanding. Will Renew Percocet (14 tabs) and Valium (14 tabs) for muscle spasm. PMDP reviewed. I am concerned that with the severity of her pain that she may be developing complex regional pain syndrome. Follow up one week. Call or come in sooner with any concerns.
[2022-08-27 08:48] VITALS: BP 113/85; PULSE 98; RESP 16; TEMP 35.9; BMI 26.6
--- NOTE | 2022-08-27 14:33 | PCM.WC.PN ---
History of Present Illness Date of Service: 08/27/22 Chief Complaint: Left distal posterior traumatic hematoma/ulcer History of Wound: 52 year old female presents to the wound healing center for evaluation of her left distal posterior leg ulcer that occurred on 05/31/22 while working at [employer]. 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 She states that it initially has a superficial wound with bruising. She was sent to [facility] for evaluation and they have been monitoring her injury. The bruising became more pronounced a couple days after she was seen at [facility]. She states that it has started to become very painful over the past couple weeks and worsened last week when she developed a black scab and now has redness surrounding the ulcer. She presents today to the wound center for further evaluation. She currently on Bactrim from her PCP for a UTI and she was told it would help with bacterial growth from the ulcer. She is denying and drainage from the ulcer. She initially was treating with hydrogen peroxide and antibiotic ointment. 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 She denies any other medical history. Surgery 07/05/22 - Surgical preparation left posterior leg with incision and drainage and evacuation and excisional debridement traumatic hematoma abscess with overlying skin necrosis (18 cm2). Operative culture shows Enterococcus faecalis, Bacteroides stercoris, and Peptoniphilus asaccharolyticus. She has been approved for the advanced wound healing product, Theraskin. Wound care - Theraskin #1 applied today. Wound VAC at 125mmHg to be changed twice a week. Progress of Wound: Ulcer improved this week and the tendon is completely covered. She was approved for Theraskin and that was applied. She continues to have pain but tolerated debridement much better this week than previously. Objective Data Objective Data Vital Signs: Vital Signs Temp Pulse Resp BP O2 Del Method 96.6 F L 98 16 113/85 H Room Air 08/27/22 08:48 08/27/22 08:48 08/27/22 08:48 08/27/22 08:48 08/27/22 08:48 Oxygen Delivery Method Room Air Weight: 150 lb 11.094 oz Body Mass Index (BMI) 26.6 Charges/Coding Procedures Integumentary 150xxx-152xx: 16944 Skin sub graft trnk/arm/leg (58 modifier) Debridement Note Debridement Note Wound debrided: Posterior leg ulcer Laterality: Left Wound Grade/Stage: Stage IV Type of Debridement: Excisional debridement Anesthesia Used: 5% Lidocaine Gel Depth: Down to and including healthy tissue, in the subcutaneous layer and to muscle Percentage of wound debrided: 100 Instrument Used: 7mm curette Tissue Removed: Devitalized tissue and slough into the muscle Severity: Fat Layer Exposed Amount of bleeding with debridement: Mild Bleeding Controlled with: Pressure and Compression and gauze Patient tolerated procedure: Patient tolerated procedure well Debridement Free Text: Tolerated debridement much better this week than previous weeks. Post-Debridement Measurements and Additional Note: Post-Debridement Measurements/Treatment - Nurse 1 - General Ulcer Assessment Start: 08/08/22 08:51 Freq: Status: Active Protocol: TOMASZ Activity Type Activity Date Activity User E-sign Co-sign Detail Recorded Client Recorded Date Recorded By Document 08/08/22 08:51 DL [id number] 08/08/22 08:55 DL Document 08/13/22 08:55 [facility] [id number] 08/13/22 09:01 [facility] Document 08/20/22 11:15 [facility] [id number] 08/20/22 11:23 [facility] Document 08/27/22 08:48 [facility] [id number] 08/27/22 08:55 [facility] 08/08/22 08/13/22 08/20/22 08:51 08:55 11:15 - Today's Visit Information Type of service Follow-up Visit Follow-up Visit Follow-up Visit (Physician/CABLE MAINTAINER (Physician/CABLE MAINTAINER (Physician/CABLE MAINTAINER ) ) ) Arrival Mode Ambulatory Ambulatory Ambulatory Transfer Assistance None None None Accompanied by Patient Identification Verified (Name & Yes Yes Yes ) Patient Requires Transmission-Based No No No Precautions Height and Weight Body Mass Index (BMI) 26.6 26.6 26.6 BMI Classification Overweight Overweight Overweight Vital Signs Temperature (97.8 F-99.1 F) 97.4 F L 97.2 F L 96.3 F L Temperature Source Temporal Temporal Temporal Pulse Rate (60-100) 86 101 H 87 Pulse Location Monitor Monitor Monitor Respiratory Rate (12-18) 20 H 16 16 Respiratory rate source Observation Observation Observation Oxygen Delivery Method Room Air Room Air Blood Pressure (90/60-120/80) 122/76 H 128/72 H 118/87 H Blood Pressure Mean (mm Hg) 91 90 97 Source Monitor Monitor Monitor Position Sitting Sitting Blood Pressure Location Right Arm Left Arm History Since Last Visit- (Skip if this is Patient's initial visit) Have you changed medications since your No No No last visit? Any new allergies or adverse reactions No No No Had a fall/change in ADL's that may No No No increase risk of falls Signs or symptoms of abuse and/or No No No neglect since last visit Have you been in the hospital since your No No No last visit? Has dressing in place as prescribed No Yes Yes Has compression in place as prescribed Yes N/A N/A Has offloadiing in place as prescribed N/A N/A N/A Experienced any changes in pain level or No No management Left Footwear Regular Shoe Regular Shoe Right Footwear Regular Shoe Regular Shoe Pain Scale: 0-10 Numeric Is Patient Pain Free? Yes Yes Yes 08/27/22 08:48 WC - Today's Visit Information Type of service Follow-up Visit (Physician/CABLE MAINTAINER ) Arrival Mode Ambulatory Transfer Assistance None Accompanied by Patient Identification Verified (Name & Yes ) Patient Requires Transmission-Based No Precautions Height and Weight Body Mass Index (BMI) 26.6 BMI Classification Overweight Vital Signs Temperature (97.8 F-99.1 F) 96.6 F L Temperature Source Temporal Pulse Rate (60-100) 98 Pulse Location Monitor Respiratory Rate (12-18) 16 Respiratory rate source Observation Oxygen Delivery Method Room Air Blood Pressure (90/60-120/80) 113/85 H Blood Pressure Mean (mm Hg) 94 Source Monitor Position Sitting Blood Pressure Location Right Arm History Since Last Visit- (Skip if this is Patient's initial visit) Have you changed medications since your No last visit? Any new allergies or adverse reactions No Had a fall/change in ADL's that may No increase risk of falls Signs or symptoms of abuse and/or No neglect since last visit Have you been in the hospital since your No last visit? Has dressing in place as prescribed No Has compression in place as prescribed N/A Has offloadiing in place as prescribed N/A Experienced any changes in pain level or No management Left Footwear Regular Shoe Right Footwear Regular Shoe Pain Scale: 0-10 Numeric Is Patient Pain Free? Yes WC - Nurse 1 - General Ulcer Measurement Start: 08/08/22 08:51 Freq: Status: Active Protocol: Activity Type Activity Date Activity User E-sign Co-sign Detail Recorded Client Recorded Date Recorded By Document 08/08/22 08:51 DL [id number] 08/08/22 08:55 DL Document 08/13/22 08:55 BMF [id number] 08/13/22 09:01 BMF Document 08/20/22 11:15 BMF [id number] 08/20/22 11:23 BMF Document 08/27/22 08:48 BMF [id number] 08/27/22 08:55 BMF 08/08/22 08/13/22 08/20/22 08:51 08:55 11:15 Wound Center Nurse 1 #2 L lower calf- post op -Combined with other wound No No -Current Size (cm) - Length 4.2 4 4 -Current Size (cm) - Width 3.4 4 3.5 -Current Size (cm) - Depth 0.6 0.4 0.2 -Total Square Cm 14.28 16 14.0 -Date of Last Picture (Recall this 08/13/22 08/20/22 field) -Photo Taken Yes Yes Yes -Epithelialization Small 1-33% Small 1-33% -Tunneling No No -Undermining/Tunneling Yes No -Undermining/Tunneling Starts (O'clock 8 ) -Undermining/Tunneling Ends (O'clock) 9 -Maximum Distance (cm) 0.5 -Circular Undermining No No -Exudate Amt Medium Large Medium -Exudate Type Serosanguineous Yellow/Green Serosanguineous -Wound Margin Distinct, Distinct, Distinct, Outline Outline Outline Attached Attached Attached -Granulation Amt Large (67-100%) Large (67-100%) Large (67-100%) -Granulation Quality Red Hyper- [place] granulation,Red -Slough/Fibrin Yes Yes -Necrosis Amt Small (1-33%) Small (1-33%) Small (1-33%) -Necrotic Tissue Type Adherent Slough Adherent Slough Adherent Slough -Structure Exposed Tendon Tendon Tendon -Texture (Nilsa-wound Skin Appearance) Scarring Assessed, Assessed, Scarring Scarring -Moisture (Nilsa-wound Skin Appearance) No Abnormality Assessed Assessed -Color (Nilsa-wound Skin Appearance) No Abnormality Assessed Assessed -Temperature (Nilsa-wound Skin No Abnormality No Abnormality No Abnormality Appearance) (Pt Warm) (Pt Warm) (Pt Warm) -Tenderness on Palpation (Nilsa-wound No No No Skin Appearance) -Ulcer Cleansing Soap and Water Soap and Water Soap and Water -Foul Odor after Cleansing No No No -Anesthetic Used 5% Lidocaine 5% Lidocaine 5% Lidocaine Gel Gel Gel Left Calf (cm) 34.5 Left Ankle (cm) 21 08/27/22 08:48 Wound Center Nurse 1 #2 L lower calf- post op -Combined with other wound No -Current Size (cm) - Length 3.5 -Current Size (cm) - Width 3 -Current Size (cm) - Depth 0.1 -Total Square Cm 10.5 -Date of Last Picture (Recall this 08/27/22 field) -Photo Taken Yes -Epithelialization Small 1-33% -Tunneling No -Undermining/Tunneling No -Undermining/Tunneling Starts (O'clock ) -Undermining/Tunneling Ends (O'clock) -Maximum Distance (cm) -Circular Undermining No -Exudate Amt Medium -Exudate Type Serosanguineous -Wound Margin Distinct, Outline Attached -Granulation Amt Large (67-100%) -Granulation Quality Red -Slough/Fibrin Yes -Necrosis Amt Small (1-33%) -Necrotic Tissue Type Adherent Slough -Structure Exposed Tendon -Texture (Nilsa-wound Skin Appearance) Assessed, Scarring -Moisture (Nilsa-wound Skin Appearance) Assessed -Color (Nilsa-wound Skin Appearance) Assessed -Temperature (Nilsa-wound Skin No Abnormality Appearance) (Pt Warm) -Tenderness on Palpation (Nilsa-wound No Skin Appearance) -Ulcer Cleansing Soap and Water -Foul Odor after Cleansing No -Anesthetic Used 5% Lidocaine Gel Left Calf (cm) Left Ankle (cm) WC - Nurse 2 - General Ulcer CM Notes Start: 08/08/22 08:51 Freq: Status: Active Protocol: Activity Type Activity Date Activity User E-sign Co-sign Detail Recorded Client Recorded Date Recorded By Document 08/08/22 09:13 AAMIR [id number] 08/08/22 09:15 JF Document 08/13/22 09:31 [id number] 08/13/22 09:48 JF Edit Result 08/13/22 09:31 JF (1) [id number] 08/13/22 09:51 JF Document 08/20/22 11:34 JF [id number] 08/20/22 11:38 Document 08/27/22 09:30 JF [id number] 08/27/22 09:33 JF (1) #2 L lower calf- post op - Clinical Debridement Subcutaneous => Muscle / Fascia - Tissue Removed Subcutaneous => Muscle,Fascia - Debridement - Subq, 1st 20sq cm Yes => No 08/08/22 08/13/22 08/20/22 09:13 09:31 11:34 Wound Center Nurse 2 #2 L lower calf- post op -Time 09:13 09:34 11:35 -Correct Patient Yes Yes Yes -Correct Side, Site, Position Yes Yes Yes -Correct Procedure Yes Yes Yes -Procedure Performed Yes Yes Yes -Type of Procedure Debridement Debridement Debridement -Clinical Debridement Muscle / Fascia Muscle / Fascia Muscle / Fascia -Tissue Removed Muscle,Tendon Muscle,Fascia Muscle,Fascia -Post Debridement (cm) - Length 4.2 4.0 4.0 -Post Debridement (cm) - Width 3.8 3.4 3.6 -Post Debridement (cm) - Depth 0.4 0.3 0.3 -Total Square (Post) (cm) 15.96 13.60 14.40 -Area of Debridement (cm) - Length 4.2 4.0 4.0 -Area of Debridement (cm) - Width 3.8 3.4 3.6 -Total Square (Area) (cm) 15.96 13.60 14.40 -Tunneling No No No -Undermining/Tunneling No Yes No -Undermining/Tunneling Starts (O'clock 7 ) -Undermining/Tunneling Ends (O'clock) 10 -Maximum Distance (cm) 0.6 -Circular Undermining No No No -Wound/Ulcer Outcome Not Healed Not Healed Not Healed -Ulcer Cleansing Rinsed/ Rinsed/ Rinsed/ Irrigated with Irrigated with Irrigated with Saline Saline Saline -Foul Odor after Cleansing No No No -Bioengineered Tissue No No No -Type of Bioengineered Tissue -Expiration Date -Product Lot Number -Percent Used -Lot number of Saline Used -Bleeding Controlled with Pressure Pressure Pressure -Treatment Response Procedure Procedure Procedure Tolerated Well Tolerated Well Tolerated Well -Offloading No No No -Debridement - Subq, 1st 20sq cm No -Debridement - Muscle / Fascia, 1st Yes Yes Yes 20sq cm -Apply Skin Sub - 1st 25 sq cm - Legs -Theraskin (per sq cm) Pain Scale: 0-10 Numeric Is Patient Pain Free? Yes Yes Yes 08/27/22 09:30 Wound Center Nurse 2 #2 L lower calf- post op -Time 09:30 -Correct Patient Yes -Correct Side, Site, Position Yes -Correct Procedure Yes -Procedure Performed Yes -Type of Procedure Debridement -Clinical Debridement Subcutaneous -Tissue Removed Subcutaneous -Post Debridement (cm) - Length 3.6 -Post Debridement (cm) - Width 3.4 -Post Debridement (cm) - Depth 0.2 -Total Square (Post) (cm) 12.24 -Area of Debridement (cm) - Length 3.6 -Area of Debridement (cm) - Width 3.4 -Total Square (Area) (cm) 12.24 -Tunneling No -Undermining/Tunneling No -Undermining/Tunneling Starts (O'clock ) -Undermining/Tunneling Ends (O'clock) -Maximum Distance (cm) -Circular Undermining No -Wound/Ulcer Outcome Not Healed -Ulcer Cleansing Rinsed/ Irrigated with Saline -Foul Odor after Cleansing No -Bioengineered Tissue Yes -Type of Bioengineered Tissue Theraskin -Expiration Date 11/11/23 -Product Lot Number [id number] -Percent Used 100 -Lot number of Saline Used [id number] -Bleeding Controlled with Pressure -Treatment Response Procedure Tolerated Well -Offloading No -Debridement - Subq, 1st 20sq cm No -Debridement - Muscle / Fascia, 1st 20sq cm -Apply Skin Sub - 1st 25 sq cm - Legs 1 -Theraskin (per sq cm) 13 Pain Scale: 0-10 Numeric Is Patient Pain Free? Yes WC - Nurse 3 - General Ulcer D/C NN Start: 08/08/22 08:51 Freq: Status: Active Protocol: Activity Type Activity Date Activity User E-sign Co-sign Detail Recorded Client Recorded Date Recorded By Document 08/08/22 09:49 [facility] [id number] 08/08/22 09:51 BMF Document 08/13/22 10:15 BMF [id number] 08/13/22 10:15 BM Document 08/20/22 11:51 AK [id number] 08/20/22 11:52 AK Edit Result 08/20/22 11:51 AK (1) [id number] 08/21/22 06:46 [address] Document 08/27/22 09:38 DL [id number] 08/27/22 09:40 DL (1) #2 L lower calf- post op - NPWT Application Charge NPWT </= 50 sq cm => NPWT & Debridement ($) => (nc) 08/08/22 08/13/22 08/20/22 09:49 10:15 11:51 Wound Care Center Nurse 3 #2 L lower calf- post op -Ulcer Cleansing Rinsed/ Rinsed/ Rinsed/ Irrigated with Irrigated with Irrigated with Saline Saline Saline -Foul Odor after Cleansing No No No -Negative Pressure Wound Therapy Continue Continue N/A -Setting (mmHg) 150 150 -Negative Pressure is Continuous Continuous -Other Dressing -NPWT Application Charge NPWT & NPWT & NPWT & Debridement (nc Debridement (nc Debridement (nc ) ) ) Left -Compression Wrap Tom Wrap Tom Wrap Treatment Response Procedure Procedure Tolerated Well Tolerated Well Pain Scale: 0-10 Numeric Is Patient Pain Free? Yes Yes No WC - Visit Discharge Discharge Condition Stable Stable Stable Ambulatory Status Ambulatory Ambulatory Ambulatory Transportation Private Auto Private Auto Private Auto Accompanied by Medication Reconcilliation completed & Yes provided to patient/care provider Clinical Summary of Care Provided Yes Facility Type Home Health Orders Sent 08/27/22 09:38 Wound Care Center Nurse 3 #2 L lower calf- post op -Ulcer Cleansing Not Cleansed -Foul Odor after Cleansing No -Negative Pressure Wound Therapy Continue -Setting (mmHg) 125 -Negative Pressure is Continuous -Other Dressing Theraskin -NPWT Application Charge NPWT </= 50 sq cm ($) Left -Compression Wrap Tom Wrap Treatment Response Procedure Tolerated Well Pain Scale: 0-10 Numeric Is Patient Pain Free? Yes WC - Visit Discharge Discharge Condition Stable Ambulatory Status Ambulatory Transportation Private Auto Accompanied by Medication Reconcilliation completed & provided to patient/care provider Clinical Summary of Care Provided Facility Type Home Health Orders Sent Yes Assessment/Plan Assessment/Plan (1) Contusion of left lower extremity: CODE(S): S80.12XA - Contusion of left lower leg, initial encounter (2) Abrasion of left lower extremity: CODE(S): S80.812A - Abrasion, left lower leg, initial encounter (3) Abscess of left lower extremity: CODE(S): L02.416 - Cutaneous abscess of left lower limb (4) Other acute postprocedural pain: CODE(S): G89.18 - Other acute postprocedural pain (5) Anxiety: CODE(S): F41.9 - Anxiety disorder, unspecified (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 She states the increase in her Prozac has been helping with her anxiety and depression although she states she is having nightmares and smelling the tow motor. I recommended that she get some counseling to help her deal with these issues. Sent a C9 into [email or web address] to get approval for counseling, we have not heard anything yet. Wound care - Theraskin #1 applied today topped. 100% of the product was used. The Theraskin was secured with dermabond and steri strips, topped with a wound veil that was secured with steri strips. Wound VAC at 125 mmHg to be changed 2 times a week but do not remove the wound veil. The Theraskin is not to get wet. May wash the nilsa wound surrounding the wound veil. Place an TOM wrap for compression. Operative cultures positive for Enterococcus faecalis, Bacteroides stercoris and Peptoniphilus asaccharoyticus, she was treated with Augmentin and probiotic. Instructed her to keep her leg elevated when sitting. Recheck Hgb 11.8 from 07/17/22. Will keep her off work until she has better pain control and is able to ambulate easier. Tentative return to work is 10/01/22. She continues to have pain. I instructed her to try to cut back on the Ibuprofen since she has a history of the gastric surgery. I don't want to increase her risk for a GI bleed. She verbalized understanding. I am concerned that with the severity of her pain that she may be developing complex regional pain syndrome. Follow up one week. Call or come in sooner with any concerns.
== END 2022-08-28 23:59 | disposition home or self-care (01) ==
LOC: WC 08:45
PROVIDERS: PCP Student in an Organized Health Care Education/Training Program; Visit Provider Nurse Practitioner Family
DX: L02.416 Cutaneous abscess of left lower limb (principal); L97.822 Non-pressure chronic ulcer of other part of left lower leg with fat layer exposed; S80.812S Abrasion, left lower leg, sequela; S80.12XS Contusion of left lower leg, sequela; S87.82XS Crushing injury of left lower leg, sequela; Z79.899 Other long term (current) drug therapy; V83 Occupant of special vehicle mainly used on industrial premises injured in transport accident; F41.9 Anxiety disorder, unspecified
CPT/HCPCS: 11042; 11043; 15271; 97605; Q4121

== ENCOUNTER 2022-09-19 08:45 | Outpatient (RCR) | payer OTHER, SELFPAY ==
[2022-08-29 00:25] VITALS: BP 113/85; PULSE 98; RESP 16; TEMP 35.9; BMI 26.6
[2022-09-03 13:59] VITALS: BP 111/68; PULSE 100; RESP 16; TEMP 36.6; BMI 26.6
--- NOTE | 2022-09-03 15:38 | PCM.WC.PN ---
History of Present Illness Date of Service: 09/03/22 Chief Complaint: Left distal posterior traumatic hematoma/ulcer History of Wound: 52 year old female presents to the wound healing center for evaluation of her left distal posterior leg ulcer that occurred on 05/31/22 while working at [employer]. 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 She states that it initially has a superficial wound with bruising. She was sent to [facility] for evaluation and they have been monitoring her injury. The bruising became more pronounced a couple days after she was seen at [facility]. She states that it has started to become very painful over the past couple weeks and worsened last week when she developed a black scab and now has redness surrounding the ulcer. She presents today to the wound center for further evaluation. She currently on Bactrim from her PCP for a UTI and she was told it would help with bacterial growth from the ulcer. She is denying and drainage from the ulcer. She initially was treating with hydrogen peroxide and antibiotic ointment. 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 She denies any other medical history. Surgery 07/05/22 - Surgical preparation left posterior leg with incision and drainage and evacuation and excisional debridement traumatic hematoma abscess with overlying skin necrosis (18 cm2). Operative culture shows Enterococcus faecalis, Bacteroides stercoris, and Peptoniphilus asaccharolyticus. Progress of Wound: Ulcer improved this week, it has less depth and is beefy pink. She is tolerating the Theraskin well. She continues to have burning pain, even with the Gabapentin. She states she is continuing to have nightmares. 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 Objective Data Objective Data Vital Signs: Vital Signs Temp Pulse Resp BP O2 Del Method 98 F 100 16 111/68 Room Air 09/03/22 13:59 09/03/22 13:59 09/03/22 13:59 09/03/22 13:59 09/03/22 13:59 Oxygen Delivery Method Room Air Weight: 150 lb 11.094 oz Body Mass Index (BMI) 26.6 Charges/Coding Procedures Integumentary 150xxx-152xx: 86785 Skin sub graft trnk/arm/leg (58 modifier) Debridement Note Debridement Note Wound debrided: Posterior leg ulcer Laterality: Left Wound Grade/Stage: Stage IV Type of Debridement: Excisional debridement Anesthesia Used: 5% Lidocaine Gel Depth: Down to and including healthy tissue, in the subcutaneous layer and to muscle Percentage of wound debrided: 100 Instrument Used: 5mm curette Tissue Removed: Devitalized tissue and slough into the muscle Severity: Fat Layer Exposed Amount of bleeding with debridement: Mild Bleeding Controlled with: Pressure and Compression and gauze Patient tolerated procedure: Patient tolerated procedure well Post-Debridement Measurements and Additional Note: Post-Debridement Measurements/Treatment - Nurse 1 - General Ulcer Assessment Start: 09/03/22 13:59 Freq: Status: Active Protocol: TOMASZ Activity Type Activity Date Activity User E-sign Co-sign Detail Recorded Client Recorded Date Recorded By Document 09/03/22 13:[address] [facility] [id number] 09/03/22 14:[address] [facility] 09/03/22 13:59 WC - Today's Visit Information Type of service Follow-up Visit (Physician/CONVEYANCER ) Arrival Mode Ambulatory Transfer Assistance None Patient Identification Verified (Name & Yes ) Patient Requires Transmission-Based No Precautions Height and Weight Body Mass Index (BMI) 26.6 BMI Classification Overweight Vital Signs Temperature (97.8 F-99.1 F) 98 F Temperature Source Temporal Pulse Rate (60-100) 100 Pulse Location Monitor Respiratory Rate (12-18) 16 Respiratory rate source Observation Oxygen Delivery Method Room Air Blood Pressure (90/60-120/80) 111/68 Blood Pressure Mean (mm Hg) 82 Source Monitor Position Sitting Blood Pressure Location Left Arm History Since Last Visit- (Skip if this is Patient's initial visit) Have you changed medications since your No last visit? Any new allergies or adverse reactions No Had a fall/change in ADL's that may No increase risk of falls Signs or symptoms of abuse and/or No neglect since last visit Have you been in the hospital since your No last visit? Has dressing in place as prescribed Yes Has compression in place as prescribed N/A Has offloadiing in place as prescribed N/A Experienced any changes in pain level or No management Left Footwear Regular Shoe Right Footwear Regular Shoe Pain Scale: 0-10 Numeric Is Patient Pain Free? Yes - Nurse 1 - General Ulcer Measurement Start: 09/03/22 13:59 Freq: Status: Active Protocol: Activity Type Activity Date Activity User E-sign Co-sign Detail Recorded Client Recorded Date Recorded By Document 09/03/22 13:[address] [facility] [id number] 09/03/22 14:[address] [facility] 09/03/22 13:59 Wound Center Nurse 1 #2 L lower calf- post op -Combined with other wound No -Current Size (cm) - Length 3.2 -Current Size (cm) - Width 3 -Current Size (cm) - Depth 0.1 -Total Square Cm 9.6 -Date of Last Picture (Recall this 09/03/22 field) -Photo Taken Yes -Epithelialization Small 1-33% -Tunneling No -Undermining/Tunneling No -Circular Undermining No -Exudate Amt Medium -Exudate Type Serosanguineous -Wound Margin Distinct, Outline Attached -Granulation Amt Large (67-100%) -Granulation Quality Red -Slough/Fibrin Yes -Necrosis Amt Small (1-33%) -Necrotic Tissue Type Adherent Slough -Texture (Nilsa-wound Skin Appearance) Assessed, Scarring -Moisture (Nilsa-wound Skin Appearance) Assessed -Color (Nilsa-wound Skin Appearance) Assessed -Temperature (Nilsa-wound Skin No Abnormality Appearance) (Pt Warm) -Tenderness on Palpation (Nilsa-wound No Skin Appearance) -Ulcer Cleansing Soap and Water -Foul Odor after Cleansing No -Anesthetic Used 5% Lidocaine Gel WC - Nurse 2 - General Ulcer CM Notes Start: 09/03/22 13:59 Freq: Status: Active Protocol: Activity Type Activity Date Activity User E-sign Co-sign Detail Recorded Client Recorded Date Recorded By Document 09/03/22 14:32 [id number] 09/03/22 14:42 09/03/22 14:32 Wound Center Nurse 2 -Time 14:33 -Correct Patient Yes -Correct Side, Site, Position Yes -Correct Procedure Yes -Procedure Performed Yes -Type of Procedure Debridement -Clinical Debridement Subcutaneous -Tissue Removed Subcutaneous -Post Debridement (cm) - Length 3.2 -Post Debridement (cm) - Width 3.0 -Post Debridement (cm) - Depth 0.2 -Total Square (Post) (cm) 9.60 -Area of Debridement (cm) - Length 3.2 -Area of Debridement (cm) - Width 3.0 -Total Square (Area) (cm) 9.60 -Tunneling No -Undermining/Tunneling No -Circular Undermining No -Wound/Ulcer Outcome Not Healed -Ulcer Cleansing Rinsed/ Irrigated with Saline -Foul Odor after Cleansing No -Bioengineered Tissue Yes -Type of Bioengineered Tissue Theraskin -Expiration Date 03/28/25 -Product Lot Number [id number] -Percent Used 100 -Lot number of Saline Used [id number] -Bleeding Controlled with Pressure -Treatment Response Procedure Tolerated Well -Offloading No -Debridement - Subq, 1st 20sq cm No -Apply Skin Sub - 1st 25 sq cm - Legs 1 -Theraskin (per sq cm) 13 Pain Scale: 0-10 Numeric Is Patient Pain Free? Yes - Nurse 3 - General Ulcer D/C NN Start: 09/03/22 13:59 Freq: Status: Active Protocol: Activity Type Activity Date Activity User E-sign Co-sign Detail Recorded Client Recorded Date Recorded By Document 09/03/22 14:56 DL [id number] 09/03/22 14:57 DL 09/03/22 14:56 Wound Care Center Nurse 3 #2 L lower calf- post op -Ulcer Cleansing Rinsed/ Irrigated with Saline -Foul Odor after Cleansing No -Other Dressing Theraskin -Primary Dressing Covered/Secured with Dry Gauze & Roll Gauze, Secured with Tape -Other Covering ABD Left -Compression Wrap Tom Wrap Treatment Response Procedure Tolerated Well Pain Scale: 0-10 Numeric Is Patient Pain Free? Yes - Visit Discharge Discharge Condition Stable Ambulatory Status Ambulatory Transportation Private [facility] Facility Type Home Health Orders Sent Yes Assessment/Plan Assessment/Plan (1) Contusion of left lower extremity: CODE(S): S80.12XA - Contusion of left lower leg, initial encounter (2) Abrasion of left lower extremity: CODE(S): S80.812A - Abrasion, left lower leg, initial encounter (3) Abscess of left lower extremity: CODE(S): L02.416 - Cutaneous abscess of left lower limb (4) Other acute postprocedural pain: CODE(S): G89.18 - Other acute postprocedural pain (5) Anxiety: CODE(S): F41.9 - Anxiety disorder, unspecified (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 She states the increase in her Prozac has been helping with her anxiety and depression although she states she is having nightmares and smelling the tow motor. I recommended that she get some counseling to help her deal with these issues. Sent a C9 into [employer] to get approval for counseling, we have not heard anything yet. Wound care - Theraskin #2 applied today topped. 100% of the product was used. The Theraskin was secured with dermabond and steri strips, topped with a wound veil that was secured with steri strips. Cover with ABD (will stop the wound VAC). The Theraskin is not to get wet. Change outer dressing as needed. Place an TOM wrap for compression. Operative cultures positive for Enterococcus faecalis, Bacteroides stercoris and Peptoniphilus asaccharoyticus, she was treated with Augmentin and probiotic. Instructed her to keep her leg elevated when sitting. Recheck Hgb 11.8 from 07/17/22. Will keep her off work until she has better pain control and is able to ambulate easier. Tentative return to work is 10/01/22. She continues to have pain. Will renew Percocet (14 tabs). PDMP reviewed. Will increase her Gabapentin to 500-600 mg BID because the burning pain is not improving. I am concerned that with the severity of her pain that she may be developing complex regional pain syndrome. With her continued nightmares and having episodes during the day of smelling the fumes from the tow motor she would really benefit from counseling. [facility] has denied counseling when submitted on a C9 form. Follow up one week. Call or come in sooner with any concerns.
[2022-09-10 09:17] VITALS: RESP 16; TEMP 36.2; BMI 26.6
--- NOTE | 2022-09-10 13:09 | PN.PCM_ITS ---
History of Present Illness Date of Service: 09/10/22 Chief Complaint: Left distal posterior traumatic hematoma/ulcer History of Wound: 52 year old female presents to the wound healing center for evaluation of her left distal posterior leg ulcer that occurred on 05/31/22 while working at [employer]. 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 She states that it initially has a superficial wound with bruising. She was sent to [facility] for evaluation and they have been monitoring her injury. The bruising became more pronounced a couple days after she was seen at [facility]. She states that it has started to become very painful over the past couple weeks and worsened last week when she developed a black scab and now has redness surrounding the ulcer. She presents today to the wound center for further evaluation. She currently on Bactrim from her PCP for a UTI and she was told it would help with bacterial growth from the ulcer. She is denying and drainage from the ulcer. She initially was treating with hydrogen peroxide and antibiotic ointment. 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 She denies any other medical history. Surgery 07/05/22 - Surgical preparation left posterior leg with incision and drainage and evacuation and excisional debridement traumatic hematoma abscess with overlying skin necrosis (18 cm2). Operative culture shows Enterococcus faecalis, Bacteroides stercoris, and Peptoniphilus asaccharolyticus. Progress of Wound: Ulcer improved this week, it has less depth and is beefy pink. She is tolerating the Theraskin well. She continues to have burning pain, even with the Gabapentin. She states she is continuing to have nightmares. 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 Objective Data Objective Data Vital Signs: Vital Signs Temp Pulse Resp BP O2 Del Method 97.1 F L 100 16 111/68 Room Air 09/10/22 09:17 09/03/22 13:59 09/10/22 09:17 09/03/22 13:59 09/10/22 09:17 Oxygen Delivery Method Room Air Weight: 150 lb 11.094 oz Body Mass Index (BMI) 26.6 Charges/Coding Procedures Integumentary 150xxx-152xx: 07699 Skin sub graft trnk/arm/leg (58 modifier) Debridement Note Debridement Note Wound debrided: Posterior leg ulcer Laterality: Left Wound Grade/Stage: Stage IV Type of Debridement: Excisional debridement Anesthesia Used: 5% Lidocaine Gel Depth: Down to and including healthy tissue, in the subcutaneous layer and to muscle Percentage of wound debrided: 100 Instrument Used: 5mm curette Tissue Removed: Devitalized tissue and slough into the muscle Severity: Fat Layer Exposed Amount of bleeding with debridement: Mild Bleeding Controlled with: Pressure and Compression and gauze Patient tolerated procedure: Patient tolerated procedure well Post-Debridement Measurements and Additional Note: Post-Debridement Measurements/Treatment - Nurse 1 - General Ulcer Assessment Start: 09/03/22 13:59 Freq: Status: Active Protocol: [employer] Activity Type Activity Date Activity User E-sign Co-sign Detail Recorded Client Recorded Date Recorded By Document 09/03/22 13:59 [facility] [id number] 09/03/22 14:06 [facility] Document 09/10/22 09:17 [facility] [id number] 09/10/22 09:23 [facility] 09/03/22 09/10/22 13:59 09:17 - Today's Visit Information Type of service Follow-up Visit Follow-up Visit (Physician/LEGAL ADVISER (Physician/LEGAL ADVISER ) ) Arrival Mode Ambulatory Ambulatory Transfer Assistance None None Patient Identification Verified (Name & Yes Yes ) Patient Requires Transmission-Based No No Precautions Height and Weight Body Mass Index (BMI) 26.6 26.6 BMI Classification Overweight Overweight Vital Signs Temperature (97.8 F-99.1 F) 98 F 97.1 F L Temperature Source Temporal Temporal Pulse Rate (60-100) 100 Pulse Location Monitor Monitor Respiratory Rate (12-18) 16 16 Respiratory rate source Observation Observation Oxygen Delivery Method Room Air Room Air Blood Pressure (90/60-120/80) 111/68 Blood Pressure Mean (mm Hg) 82 Source Monitor Monitor Position Sitting Sitting Blood Pressure Location Left Arm Left Arm History Since Last Visit- (Skip if this is Patient's initial visit) Have you changed medications since your No No last visit? Any new allergies or adverse reactions No No Had a fall/change in ADL's that may No No increase risk of falls Signs or symptoms of abuse and/or No No neglect since last visit Have you been in the hospital since your No No last visit? Has dressing in place as prescribed Yes Yes Has compression in place as prescribed N/A Yes Has offloadiing in place as prescribed N/A N/A Experienced any changes in pain level or No No management Left Footwear Regular Shoe Slipper Right Footwear Regular Shoe Slipper Pain Scale: 0-10 Numeric Is Patient Pain Free? Yes Yes WC - Nurse 1 - General Ulcer Measurement Start: 09/03/22 13:59 Freq: Status: Active Protocol: Activity Type Activity Date Activity User E-sign Co-sign Detail Recorded Client Recorded Date Recorded By Document 09/03/22 13:59 [facility] [id number] 09/03/22 14:06 [facility] Document 09/10/22 09:17 [facility] [id number] 09/10/22 09:23 [facility] 09/03/22 09/10/22 13:59 09:17 Wound Center Nurse 1 #2 L lower calf- post op -Combined with other wound No No -Current Size (cm) - Length 3.2 3.2 -Current Size (cm) - Width 3 2.3 -Current Size (cm) - Depth 0.1 0.1 -Total Square Cm 9.6 7.36 -Date of Last Picture (Recall this 09/03/22 09/10/22 field) -Photo Taken Yes Yes -Epithelialization Small 1-33% Small 1-33% -Tunneling No No -Undermining/Tunneling No No -Circular Undermining No No -Exudate Amt Medium Medium -Exudate Type Serosanguineous Serosanguineous -Wound Margin Distinct, Distinct, Outline Outline Attached Attached -Granulation Amt Large (67-100%) Small (1-33%) -Granulation Quality Red Red -Slough/Fibrin Yes Yes -Necrosis Amt Small (1-33%) Large (67-100%) -Necrotic Tissue Type Adherent Slough Adherent Slough -Texture (Nilsa-wound Skin Appearance) Assessed, Assessed, Scarring Scarring -Moisture (Nilsa-wound Skin Appearance) Assessed Assessed -Color (Nilsa-wound Skin Appearance) Assessed Assessed -Temperature (Nilsa-wound Skin No Abnormality No Abnormality Appearance) (Pt Warm) (Pt Warm) -Tenderness on Palpation (Nilsa-wound No No Skin Appearance) -Ulcer Cleansing Soap and Water Soap and Water -Foul Odor after Cleansing No No -Anesthetic Used 5% Lidocaine 5% Lidocaine Gel Gel - Nurse 2 - General Ulcer CM Notes Start: 09/03/22 13:59 Freq: Status: Active Protocol: Activity Type Activity Date Activity User E-sign Co-sign Detail Recorded Client Recorded Date Recorded By Document 09/03/22 14:32 [id number] 09/03/22 14:42 Document 09/10/22 10:07 [id number] 09/10/22 10:17 09/03/22 09/10/22 14:32 10:07 Wound Center Nurse 2 #2 L lower calf- post op -Time 14:33 10:08 -Correct Patient Yes Yes -Correct Side, Site, Position Yes Yes -Correct Procedure Yes Yes -Procedure Performed Yes Yes -Type of Procedure Debridement Debridement -Clinical Debridement Subcutaneous Subcutaneous -Tissue Removed Subcutaneous Subcutaneous -Post Debridement (cm) - Length 3.2 3.0 -Post Debridement (cm) - Width 3.0 2.7 -Post Debridement (cm) - Depth 0.2 0.1 -Total Square (Post) (cm) 9.60 8.10 -Area of Debridement (cm) - Length 3.2 3.0 -Area of Debridement (cm) - Width 3.0 2.7 -Total Square (Area) (cm) 9.60 8.10 -Tunneling No No -Undermining/Tunneling No No -Circular Undermining No No -Wound/Ulcer Outcome Not Healed Not Healed -Ulcer Cleansing Rinsed/ Rinsed/ Irrigated with Irrigated with Saline Saline -Foul Odor after Cleansing No No -Bioengineered Tissue Yes Yes -Type of Bioengineered Tissue Theraskin Theraskin -Expiration Date 03/28/25 01/30/25 -Product Lot Number [id number] -Percent Used 100 100 -Lot number of Saline Used [id number] -Bleeding Controlled with Pressure Pressure -Treatment Response Procedure Procedure Tolerated Well Tolerated Well -Offloading No No -Debridement - Subq, 1st 20sq cm No No -Apply Skin Sub - 1st 25 sq cm - Legs 1 1 -Theraskin (per sq cm) 13 6 Pain Scale: 0-10 Numeric Is Patient Pain Free? Yes Yes TONI - Nurse 3 - General Ulcer D/C NN Start: 09/03/22 13:59 Freq: Status: Active Protocol: Activity Type Activity Date Activity User E-sign Co-sign Detail Recorded Client Recorded Date Recorded By Document 09/03/22 14:56 DL [id number] 09/03/22 14:57 DL 09/03/22 14:56 Wound Care Center Nurse 3 #2 L lower calf- post op -Ulcer Cleansing Rinsed/ Irrigated with Saline -Foul Odor after Cleansing No -Other Dressing Theraskin -Primary Dressing Covered/Secured with Dry Gauze & Roll Gauze, Secured with Tape -Other Covering ABD Left -Compression Wrap Tom Wrap Treatment Response Procedure Tolerated Well Pain Scale: 0-10 Numeric Is Patient Pain Free? Yes WC - Visit Discharge Discharge Condition Stable Ambulatory Status Ambulatory Transportation Private [facility] Facility Type Home Health Orders Sent Yes Assessment/Plan Assessment/Plan (1) Contusion of left lower extremity: CODE(S): S80.12XA - Contusion of left lower leg, initial encounter (2) Abrasion of left lower extremity: CODE(S): S80.812A - Abrasion, left lower leg, initial encounter (3) Abscess of left lower extremity: CODE(S): L02.416 - Cutaneous abscess of left lower limb (4) Other acute postprocedural pain: CODE(S): G89.18 - Other acute postprocedural pain (5) Anxiety: CODE(S): F41.9 - Anxiety disorder, unspecified (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 She states the increase in her Prozac has been helping with her anxiety and depression although she states she is having nightmares and smelling the tow motor. I recommended that she get some counseling to help her deal with these issues. Sent a C9 into [employer] to get approval for counseling, we have not heard anything yet. Wound care - Theraskin #3 applied today topped. 100% of the product was used. The Theraskin was secured with dermabond and steri strips, topped with a wound veil that was secured with steri strips. Cover with ABD (will stop the wound VAC). The Theraskin is not to get wet. Change outer dressing as needed. Place an TOM wrap for compression. Operative cultures positive for Enterococcus faecalis, Bacteroides stercoris and Peptoniphilus asaccharoyticus, she was treated with Augmentin and probiotic. Instructed her to keep her leg elevated when sitting. Recheck Hgb 11.8 from 07/17/22. Will keep her off work until she has better pain control and is able to ambulate easier. Tentative return to work is 10/01/22. With her continued nightmares and having episodes during the day of smelling the fumes from the tow motor she would really benefit from counseling. [facility] has denied counseling when submitted on a C9 form. Unsure if she will be able to return to work due to the mental distress she is under from her nightmares. She continues to have pain. Gabapentin 500-600 mg BID because the burning pain is not improving. I am concerned that with the severity of her pain that she may be developing complex regional pain syndrome. Follow up one week. Call or come in sooner with any concerns.
[2022-09-19 08:55] VITALS: BP 110/75; PULSE 79; RESP 20; TEMP 36.3; BMI 26.6
--- NOTE | 2022-09-19 11:16 | PN.PCM_ITS ---
History of Present Illness Date of Service: 09/19/22 Chief Complaint: Left distal posterior traumatic hematoma/ulcer History of Wound: 52 year old female presents to the wound healing center for evaluation of her left distal posterior leg ulcer that occurred on 05/31/22 while working at [employer] 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 She states that it initially has a superficial wound with bruising. She was sent to [facility] for evaluation and they have been monitoring her injury. The bruising became more pronounced a couple days after she was seen at [facility]. She states that it has started to become very painful over the past couple weeks and worsened last week when she developed a black scab and now has redness surrounding the ulcer. She presents today to the wound center for further evaluation. She currently on Bactrim from her PCP for a UTI and she was told it would help with bacterial growth from the ulcer. She is denying and drainage from the ulcer. She initially was treating with hydrogen peroxide and antibiotic ointment. 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 She denies any other medical history. Surgery 07/05/22 - Surgical preparation left posterior leg with incision and drainage and evacuation and excisional debridement traumatic hematoma abscess with overlying skin necrosis (18 cm2). Operative culture shows Enterococcus faecalis, Bacteroides stercoris, and Peptoniphilus asaccharolyticus. Today she denies any nausea, vomiting or diarrhea. 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 She does have an appointment at [facility] for counseling next week. She has moments of being very weepy and feeling overwhelmed by the continual pain the wound not healing quickly. [employer] has denied covering it thus far. Progress of Wound: Ulcer has improved. There is hypergranulation tissue present and the ulcer is beefy pink. She is tolerating the Theraskin well. Her nilsa wound is very excoriated today, most likely from the [place] SAP dressing. She continues to have burning pain, even with the Gabapentin. She states she is continuing to have nightmares about her accident and throughout the day she keeps smelling exhaust from the [place] motor. Objective Data Objective Data Vital Signs: Vital Signs Temp Pulse Resp BP O2 Del Method 97.3 F L 79 20 H 110/75 Room Air 09/19/22 08:55 09/19/22 08:55 09/19/22 08:55 09/19/22 08:55 09/10/22 09:17 Oxygen Delivery Method Room Air Weight: 150 lb 11.094 oz Body Mass Index (BMI) 26.6 Charges/Coding Procedures Integumentary 111xxx-113xx: 24910 Global Visit Debridement Note Debridement Note Wound debrided: Posterior leg ulcer Laterality: Left Wound Grade/Stage: Stage IV Type of Debridement: Excisional debridement Anesthesia Used: 5% Lidocaine Gel Depth: Down to and including healthy tissue, in the subcutaneous layer and to muscle Percentage of wound debrided: 100 Instrument Used: 5mm curette Tissue Removed: Devitalized tissue and slough into the muscle and hypergranulation tissue Severity: Fat Layer Exposed Amount of bleeding with debridement: Mild Bleeding Controlled with: Pressure and Compression and gauze Patient tolerated procedure: Patient tolerated procedure well Debridement Free Text: Patient tolerated today's debridement better than any debridement in the past. Post-Debridement Measurements and Additional Note: Post-Debridement Measurements/Treatment WC - Nurse 1 - General Ulcer Assessment Start: 09/03/22 13:59 Freq: Status: Active Protocol: TOMASZ Activity Type Activity Date Activity User E-sign Co-sign Detail Recorded Client Recorded Date Recorded By Document 09/03/22 13:59 [facility] [id number] 09/03/22 14:06 [facility] Document 09/10/22 09:17 [facility] [id number] 09/10/22 09:23 [facility] Document 09/19/22 08:55 DL Desktop 09/19/22 09:03 DL 09/03/22 09/10/22 09/19/22 13:59 09:17 08:55 - Today's Visit Information Type of service Follow-up Visit Follow-up Visit Follow-up Visit (Physician/NETTING WEAVER (Physician/NETTING WEAVER (Physician/NETTING WEAVER ) ) ) Arrival Mode Ambulatory Ambulatory Ambulatory Transfer Assistance None None None Patient Identification Verified (Name & Yes Yes Yes ) Patient Requires Transmission-Based No No Yes Precautions Safety Precautions NA Height and Weight Body Mass Index (BMI) 26.6 26.6 26.6 BMI Classification Overweight Overweight Overweight Vital Signs Temperature (97.8 F-99.1 F) 98 F 97.1 F L 97.3 F L Temperature Source Temporal Temporal Temporal Pulse Rate (60-100) 100 79 Pulse Location Monitor Monitor Monitor Respiratory Rate (12-18) 16 16 20 H Respiratory rate source Observation Observation Observation Oxygen Delivery Method Room Air Room Air Blood Pressure (90/60-120/80) 111/68 110/75 Blood Pressure Mean (mm Hg) 82 86 Source Monitor Monitor Monitor Position Sitting Sitting Blood Pressure Location Left Arm Left Arm History Since Last Visit- (Skip if this is Patient's initial visit) Have you changed medications since your No No No last visit? Any new allergies or adverse reactions No No No Had a fall/change in ADL's that may No No No increase risk of falls Signs or symptoms of abuse and/or No No No neglect since last visit Have you been in the hospital since your No No No last visit? Has dressing in place as prescribed Yes Yes Yes Has compression in place as prescribed N/A Yes Yes Has offloadiing in place as prescribed N/A N/A N/A Experienced any changes in pain level or No No No management Left Footwear Regular Shoe Slipper Right Footwear Regular Shoe Slipper Pain Scale: 0-10 Numeric Is Patient Pain Free? Yes Yes Yes WC - Nurse 1 - General Ulcer Measurement Start: 09/03/22 13:59 Freq: Status: Active Protocol: Activity Type Activity Date Activity User E-sign Co-sign Detail Recorded Client Recorded Date Recorded By Document 09/03/22 13:59 [facility] [id number] 09/03/22 14:06 [facility] Document 09/10/22 09:17 [facility] [id number] 09/10/22 09:23 [facility] Document 09/19/22 08:55 DL Desktop 09/19/22 09:03 DL 09/03/22 09/10/22 09/19/22 13:59 09:17 08:55 Wound Center Nurse 1 #2 L lower calf- post op -Combined with other wound No No -Current Size (cm) - Length 3.2 3.2 2.7 -Current Size (cm) - Width 3 2.3 2.6 -Current Size (cm) - Depth 0.1 0.1 0.1 -Total Square Cm 9.6 7.36 7.02 -Date of Last Picture (Recall this 09/03/22 09/10/22 field) -Photo Taken Yes Yes Yes -Epithelialization Small 1-33% Small 1-33% -Tunneling No No -Undermining/Tunneling No No -Circular Undermining No No -Exudate Amt Medium Medium Medium -Exudate Type Serosanguineous Serosanguineous Serosanguineous -Wound Margin Distinct, Distinct, Distinct, Outline Outline Outline Attached Attached Attached -Granulation Amt Large (67-100%) Small (1-33%) Large (67-100%) -Granulation Quality Red Red Hyper- granulation,Red -Slough/Fibrin Yes Yes -Necrosis Amt Small (1-33%) Large (67-100%) Small (1-33%) -Necrotic Tissue Type Adherent Slough Adherent Slough Adherent Slough -Structure Exposed N/A -Texture (Nilsa-wound Skin Appearance) Assessed, Assessed, Scarring,Rash Scarring Scarring -Moisture (Nilsa-wound Skin Appearance) Assessed Assessed No Abnormality -Color (Nilsa-wound Skin Appearance) Assessed Assessed No Abnormality -Temperature (Nilsa-wound Skin No Abnormality No Abnormality No Abnormality Appearance) (Pt Warm) (Pt Warm) (Pt Warm) -Tenderness on Palpation (Nilsa-wound No No No Skin Appearance) -Ulcer Cleansing Soap and Water Soap and Water Soap and Water -Foul Odor after Cleansing No No No -Anesthetic Used 5% Lidocaine 5% Lidocaine 5% Lidocaine Gel Gel Gel Left Calf (cm) 34.5 Left Ankle (cm) 20 WC - Nurse 2 - General Ulcer CM Notes Start: 09/03/22 13:59 Freq: Status: Active Protocol: Activity Type Activity Date Activity User E-sign Co-sign Detail Recorded Client Recorded Date Recorded By Document 09/03/22 14:32 [id number] 09/03/22 14:42 Document 09/10/22 10:07 [id number] 09/10/22 10:17 Document 09/19/22 09:36 [id number] 09/19/22 09:46 09/03/22 09/10/22 09/19/22 14:32 10:07 09:36 Wound Center Nurse 2 #2 L lower calf- post op -Time 14:33 10:08 09:36 -Correct Patient Yes Yes Yes -Correct Side, Site, Position Yes Yes Yes -Correct Procedure Yes Yes Yes -Procedure Performed Yes Yes Yes -Type of Procedure Debridement Debridement Debridement -Clinical Debridement Subcutaneous Subcutaneous Subcutaneous -Tissue Removed Subcutaneous Subcutaneous Subcutaneous -Post Debridement (cm) - Length 3.2 3.0 3.0 -Post Debridement (cm) - Width 3.0 2.7 2.4 -Post Debridement (cm) - Depth 0.2 0.1 0.1 -Total Square (Post) (cm) 9.60 8.10 7.20 -Area of Debridement (cm) - Length 3.2 3.0 3.0 -Area of Debridement (cm) - Width 3.0 2.7 2.4 -Total Square (Area) (cm) 9.60 8.10 7.20 -Tunneling No No No -Undermining/Tunneling No No No -Circular Undermining No No No -Wound/Ulcer Outcome Not Healed Not Healed Not Healed -Ulcer Cleansing Rinsed/ Rinsed/ Rinsed/ Irrigated with Irrigated with Irrigated with Saline Saline Saline -Foul Odor after Cleansing No No No -Bioengineered Tissue Yes Yes No -Type of Bioengineered Tissue Theraskin Theraskin -Expiration Date 03/28/25 01/30/25 -Product Lot Number [id number] -Percent Used 100 100 -Lot number of Saline Used [id number] -Bleeding Controlled with Pressure Pressure Pressure -Treatment Response Procedure Procedure Procedure Tolerated Well Tolerated Well Tolerated Well -Offloading No No No -Debridement - Subq, 1st 20sq cm No No Yes -Apply Skin Sub - 1st 25 sq cm - Legs 1 1 -Theraskin (per sq cm) 13 6 Pain Scale: 0-10 Numeric Is Patient Pain Free? Yes Yes Yes WC - Nurse 3 - General Ulcer D/C NN Start: 09/03/22 13:59 Freq: Status: Active Protocol: Activity Type Activity Date Activity User E-sign Co-sign Detail Recorded Client Recorded Date Recorded By Document 09/03/22 14:56 DL [id number] 09/03/22 14:57 DL Document 09/19/22 10:43 RB [id number] 09/19/22 10:45 RB 09/03/22 09/19/22 14:56 10:43 Wound Care Center Nurse 3 #2 L lower calf- post op -Ulcer Cleansing Rinsed/ Rinsed/ Irrigated with Irrigated with Saline Saline -Foul Odor after Cleansing No -Primary Dressing Applied Aquacel AG 4x4 -Other Dressing Theraskin -Primary Dressing Covered/Secured with Dry Gauze & Dry Gauze, Roll Gauze, Secured with Secured with Tape Tape -Other Covering ABD -Aquacel AG 4x4 1 Left -Compression Wrap Tom Wrap -Tubular Bandage Single Layer -Size of Tubigrip Used Size E -Size E ($) 1 Treatment Response Procedure Procedure Tolerated Well Tolerated Well Pain Scale: 0-10 Numeric Is Patient Pain Free? Yes Yes WC - Visit Discharge Discharge Condition Stable Stable Ambulatory Status Ambulatory Ambulatory Transportation Private Auto Private Auto Medication Reconcilliation completed & No provided to patient/care provider Clinical Summary of Care Provided Yes Facility Type Home Health Orders Sent Yes Assessment/Plan Assessment/Plan (1) Contusion of left lower extremity: CODE(S): S80.12XA - Contusion of left lower leg, initial encounter (2) Abrasion of left lower extremity: CODE(S): S80.812A - Abrasion, left lower leg, initial encounter (3) Abscess of left lower extremity: CODE(S): L02.416 - Cutaneous abscess of left lower limb (4) Other acute postprocedural pain: CODE(S): G89.18 - Other acute postprocedural pain (5) Anxiety: CODE(S): F41.9 - Anxiety disorder, unspecified (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 She states the increase in her Prozac has been helping with her anxiety and depression although she states she is having nightmares and smelling the exhaust from the tow motor. I recommended that she get some counseling to help her deal with these issues. Sent a C9 into [employer] to get approval for counseling, we have not heard anything yet. She is scheduled to see a counselor at [facility] in the next couple weeks. Wound care - Will hold Theraskin today because her nilsa wound is excoriated and I will out of the office next week and there is no other provider to be able to apply her Theraskin. She has had 3 applications thus far of Theraskin. Today will place Aquacel-Ag covered with gauze daily after washing with soap and water. She may shower daily and wash the ulcer in the shower. Place an TOM wrap for compression. Operative cultures positive for Enterococcus faecalis, Bacteroides stercoris and Peptoniphilus asaccharoyticus, she was treated with Augmentin and probiotic. Instructed her to keep her leg elevated when sitting. Recheck Hgb 11.8 from 07/17/22. Will keep her off work until she has better pain control and is able to ambulate easier. Tentative return to work is 10/29/22. With her continued nightmares and having episodes during the day of smelling the fumes from the tow motor she would really benefit from counseling. [facility] has denied counseling when submitted on a C9 form. She has an appointment with a counselor at [facility] within the next couple weeks. I feel these nightmares and sensory issues are related to her accident. She continues to have pain. Gabapentin 500 mg BID due to the burning pain. Will renew the Gabapentin 400 mg BID (and she take one 100 mg to total 500 mg). I am concerned that with the severity of her pain that she may be developing complex regional pain syndrome. Follow up October 01 to have Theraskin #4 placed. Call or come in sooner with any concerns.
== END 2022-09-28 23:59 | disposition home or self-care (01) ==
LOC: WC 08:45
PROVIDERS: PCP Student in an Organized Health Care Education/Training Program; Visit Provider Nurse Practitioner Family
DX: L97.822 Non-pressure chronic ulcer of other part of left lower leg with fat layer exposed (principal); S80.812S Abrasion, left lower leg, sequela; S80.12XS Contusion of left lower leg, sequela; S87.82XS Crushing injury of left lower leg, sequela; Z79.899 Other long term (current) drug therapy; V83 Occupant of special vehicle mainly used on industrial premises injured in transport accident; F41.9 Anxiety disorder, unspecified; L02.416 Cutaneous abscess of left lower limb; Y92.63 Factory as the place of occurrence of the external cause; F43.10 Post-traumatic stress disorder, unspecified
CPT/HCPCS: 11042; 15271; Q4121

== ENCOUNTER 2022-10-15 09:30 | Outpatient (RCR) | payer OTHER, SELFPAY ==
[2022-09-29 01:45] VITALS: BP 110/75; PULSE 79; RESP 20; TEMP 36.3; BMI 26.6
[2022-10-08 08:52] VITALS: BP 101/61; PULSE 80; RESP 18; TEMP 36.1; BMI 26.6
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
[2022-10-15 09:36] VITALS: BP 127/91; PULSE 87; RESP 16; TEMP 35.8; BMI 26.6
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
== END 2022-10-28 23:59 | disposition home or self-care (01) ==
LOC: WC 09:30
PROVIDERS: PCP Student in an Organized Health Care Education/Training Program; Visit Provider Nurse Practitioner Family
DX: L97.822 Non-pressure chronic ulcer of other part of left lower leg with fat layer exposed (principal); F43.10 Post-traumatic stress disorder, unspecified; S80.812S Abrasion, left lower leg, sequela; S80.12XS Contusion of left lower leg, sequela; S87.82XS Crushing injury of left lower leg, sequela; V83 Occupant of special vehicle mainly used on industrial premises injured in transport accident; Y92.63 Factory as the place of occurrence of the external cause; L02.416 Cutaneous abscess of left lower limb; F51.5 Nightmare disorder
CPT/HCPCS: 11042

== ENCOUNTER 2022-11-05 09:23 | Outpatient (RCR) | payer OTHER, SELFPAY ==
[2022-10-29 00:33] VITALS: BP 127/91; PULSE 87; RESP 16; TEMP 35.8; BMI 26.6
[2022-11-05 09:28] VITALS: BP 118/79; PULSE 87; RESP 18; TEMP 36.1; BMI 26.6
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
== END 2022-11-28 23:59 | disposition home or self-care (01) ==
LOC: WC 09:23
PROVIDERS: PCP Student in an Organized Health Care Education/Training Program; Visit Provider Nurse Practitioner Family
DX: S80.812S Abrasion, left lower leg, sequela (principal); S80.12XS Contusion of left lower leg, sequela; L02.416 Cutaneous abscess of left lower limb; G89.18 Other acute postprocedural pain; F41.9 Anxiety disorder, unspecified; F43.10 Post-traumatic stress disorder, unspecified; F51.5 Nightmare disorder; Y92.63 Factory as the place of occurrence of the external cause; S87.82XS Crushing injury of left lower leg, sequela; V83 Occupant of special vehicle mainly used on industrial premises injured in transport accident
CPT/HCPCS: 99213; G0463

== ENCOUNTER 2022-12-03 09:28 | Outpatient (RCR) | payer OTHER, SELFPAY ==
[2022-11-29 00:29] VITALS: BP 118/79; PULSE 87; RESP 18; TEMP 36.1; BMI 26.6
[2022-12-03 09:33] VITALS: BP 116/65; PULSE 100; RESP 16; BMI 26.6
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
== END 2022-12-28 23:59 | disposition home or self-care (01) ==
LOC: WC 09:28
PROVIDERS: PCP Student in an Organized Health Care Education/Training Program; Visit Provider Nurse Practitioner Family
DX: Z09 Encounter for follow-up examination after completed treatment for conditions other than malignant neoplasm (principal); S80.12XD Contusion of left lower leg, subsequent encounter; S80.812D Abrasion, left lower leg, subsequent encounter; L02.416 Cutaneous abscess of left lower limb; F51.5 Nightmare disorder; F43.10 Post-traumatic stress disorder, unspecified; Y92.63 Factory as the place of occurrence of the external cause
CPT/HCPCS: 99213; G0463

== ENCOUNTER 2022-12-18 12:30 | Outpatient (RCR) | payer OTHER, SELFPAY ==
--- NOTE | 2022-10-15 10:54 | HP.PTREVAL ---
Lynsey Johnson, RUTH-C, It has been my pleasure to treat ARTI BRAVO over the last 1 visits for Contusion L lower leg, cutaneous absess of L ankle. Please see the progress note below for an update on the physical therapy plan of care! Plan Plan: HEP: Seated DF, PF, on the floor INV/EV and towel gastroc stretch Anticipated Interventions Please do not hesitate to contact me at [phone] by phone or if you have questions or concerns regarding this new plan of care! Sincerely, Falguni Aguilar, MPT
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
--- NOTE | 2022-12-18 12:58 | HP.PTDCSUM ---
It has been my pleasure to treat ARTI BRAVO referred by RUBENS VasquezC, with the diagnosis of Contusion L lower leg, cutaneous absess of L ankle for a total of 12 visit(s). Discharge Date: 12/18/22 Please see the following information for a summary of their discharge status. Subjective: Pt fell a few weeks ago over her dogs and hit a chair and it did not feel good. She saw Lynsey at wound care and everything is looking good. She sees Lynsey in a few weeks. She is not happy with the indentation. Pt says she is numb all around it or if she hits it on she will go through the roof. If she is walking on it a lot she still feels achy. L medial ankle Pain Intensity (Out of 10): 7 L lateral ankle Pain Intensity (Out of 10): 0 calf ankle Pain Intensity (Out of 10): 0 % Improvement: 50 Objective/Function: L ankle MMT: L PF 9.5. L DF 8.6, INV 6.6, EV 4.7. L ankle AROM 0, 35, 15, 10). Gait: Walks with decrease DF on the L and decrease stance time on the L Goal 1:: I HEP Goal Progress: Goal Met Goal 2:: Increase L ankle AROM: (at the time of the eval: R ankle AROM: DF10, PF 45, INV 15, EV 7. L ankle AROM 0, 27, 10, 12) Goal Progress: Goal Met Goal 3:: Increase L ankle MMT (at time of the eval: R ankle MMT: R PF 19.6, R DF 20.1, INV 8.4, EV 7.5. L ankle MMT: L PF 8.4. L DF 8.6, INV 4.7, EV 2.5 (increase pain with all motions) Goal Progress: Goal Met Goal 4:: Walk with increase stride and equal step length Goal Progress: Progressing Plan: DC PT Discharge Comments: DC PT If there are questions or concerns regarding this patient's physical therapy, please feel free to call me at [phone]. Thank you for the referral of this patient. Sincerely, Falguni Aguilar, MPT Balance/Gait/Functional tests - Balance/Special Test Scores Lower Extremity Functional Score: 42
== END 2022-12-18 19:00 | disposition home or self-care (01) ==
LOC: PT 12:30
PROVIDERS: PCP Student in an Organized Health Care Education/Training Program; Referring Provider Nurse Practitioner Family; Visit Provider Nurse Practitioner Family
DX: S80.12XD Contusion of left lower leg, subsequent encounter (principal); S80.812D Abrasion, left lower leg, subsequent encounter; L02.416 Cutaneous abscess of left lower limb; Z09 Encounter for follow-up examination after completed treatment for conditions other than malignant neoplasm; F51.5 Nightmare disorder; F43.10 Post-traumatic stress disorder, unspecified; Y92.63 Factory as the place of occurrence of the external cause
CPT/HCPCS: 97110; 97161; 97530; 99213; G0463

== ENCOUNTER 2023-01-07 09:22 | Outpatient (RCR) | payer OTHER, SELFPAY ==
[2022-12-29 01:14] VITALS: BP 116/65; PULSE 100; RESP 16; TEMP 36.1; BMI 26.6
[2023-01-07 09:23] VITALS: BP 119/71; PULSE 102; RESP 16; TEMP 36.2; BMI 26.6
--- NOTE | 2023-01-07 10:55 | PCM.WC.PN ---
History of Present Illness Date of Service: 01/07/23 Chief Complaint: Left distal posterior traumatic hematoma/ulcer History of Wound: 52 year old female presents to the wound healing center for evaluation of her left distal posterior leg ulcer that occurred on 05/31/22 while working at [employer]. 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 She states that it initially has a superficial wound with bruising. She was sent to [facility] for evaluation and they have been monitoring her injury. The bruising became more pronounced a couple days after she was seen at [facility]. She states that it has started to become very painful over the past couple weeks and worsened last week when she developed a black scab and now has redness surrounding the ulcer. She presents today to the wound center for further evaluation. She currently on Bactrim from her PCP for a UTI and she was told it would help with bacterial growth from the ulcer. She is denying and drainage from the ulcer. She initially was treating with hydrogen peroxide and antibiotic ointment. 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 She denies any other medical history. Surgery 07/05/22 - Surgical preparation left posterior leg with incision and drainage and evacuation and excisional debridement traumatic hematoma abscess with overlying skin necrosis (18 cm2). Operative culture shows Enterococcus faecalis, Bacteroides stercoris, and Peptoniphilus asaccharolyticus. Today she denies any nausea, vomiting or diarrhea. 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 She had been seeing a counselor at [facility], but they do not take her insurance, so she has found someone else that she is now seeing. Progress of Wound: Ulcer remains healed today. She has completed PT for range of motion, strengthening and scar/pain management. At her last visit I released her to go back to work with no restrictions, but she has not returned yet because she is waiting to be seen by a [facility] physician. She states that she is active but has noticed if she walks a lot or stands for long periods of time, she experiences increased pain. She states that the scar is numb with numbness extending down into her left lateral foot. Although the scar is numb, she will still get intermittent sharp pain in the scar area and she is unsure what triggers that except for increased activity. Objective Data Objective Data Vital Signs: Vital Signs Temp Pulse Resp BP O2 Del Method 97.1 F L 102 H 16 119/71 Room Air 01/07/23 09:23 07 09:23 01/07/23 09:23 01/07/23 09:23 01/07/23 09:23 Oxygen Delivery Method Room Air Weight: 150 lb 11.094 oz Body Mass Index (BMI) 26.6 Charges/Coding Visit Charges Office Visits / Consults: 08794 OV L3 Est Physical Exam Const alert, oriented x3 and no apparent distress General Appearance: cooperative HEENT normocephalic Head and Scalp: atraumatic Eyes General Eye: normal appearance of both eyes Lymph Lymphatic: no lymphedema noted Resp normal respiratory effort and clear to auscultation bilaterally Effort and Inspection: able to speak in complete sentences Cardio regular rate, regular rhythm and S1 normal heart sound GI non-tender Palpation: soft Extremity normal capillary refill Skin Wound Narrative: Left posterior leg ulcer is healed. There is an indent where the scar is located and the areas surrounding the scar is sensitive to palpation. She is tolerating the massaging of the scarring to help it soften up. Neuro CN's II-XII intact bilaterally Psych affect normal Appearance: grossly normal and well kempt Debridement Note Debridement Note No debridement was completed: No debridement was completed today Post-Debridement Measurements and Additional Note: Post-Debridement Measurements/Treatment WC - Nurse 1 - General Ulcer Assessment Start: 01/07/23 09:23 Freq: Status: Active Protocol: TOMASZ Activity Type Activity Date Activity User E-sign Co-sign Detail Recorded Client Recorded Date Recorded By Document 01/07/23 09:23 [facility] [id number] 01/07/23 09:24 [facility] 01/07/23 09:23 - Today's Visit Information Type of service Follow-up Visit (Physician/INSTRUCTOR BRIDGE ) Arrival Mode Ambulatory Transfer Assistance None Patient Identification Verified (Name & Yes ) Patient Requires Transmission-Based No Precautions Height and Weight Body Mass Index (BMI) 26.6 BMI Classification Overweight Vital Signs Temperature (97.8 F-99.1 F) 97.1 F L Temperature Source Temporal Pulse Rate (60-100) 102 H Pulse Location Monitor Respiratory Rate (12-18) 16 Respiratory rate source Observation Oxygen Delivery Method Room Air Blood Pressure (90/60-120/80) 119/71 Blood Pressure Mean (mm Hg) 87 Source Monitor Position Sitting Blood Pressure Location Right Arm History Since Last Visit- (Skip if this is Patient's initial visit) Have you changed medications since your No last visit? Any new allergies or adverse reactions No Had a fall/change in ADL's that may No increase risk of falls Signs or symptoms of abuse and/or No neglect since last visit Have you been in the hospital since your No last visit? Has compression in place as prescribed N/A Has offloadiing in place as prescribed N/A Experienced any changes in pain level or No management Left Footwear Regular Shoe Right Footwear Regular Shoe Pain Scale: 0-10 Numeric Is Patient Pain Free? Yes - Nurse 2 - General Ulcer CM Notes Start: 01/07/23 09:23 Freq: Status: Active Protocol: Activity Type Activity Date Activity User E-sign Co-sign Detail Recorded Client Recorded Date Recorded By Document 01/07/23 09:48 [id number] 01/07/23 09:48 JF 01/07/23 09:48 Is Patient Pain Free? Yes - Nurse 3 - General Ulcer D/C NN Start: 01/07/23 09:23 Freq: Status: Active Protocol: Activity Type Activity Date Activity User E-sign Co-sign Detail Recorded Client Recorded Date Recorded By Document 01/07/23 09:56 AAMIR [id number] 01/07/23 09:57 JF Edit Result 01/07/23 09:56 JF (1) [id number] 01/07/23 09:58 JF (1) Notes: Patient remains healed and discussed scar care to area. Patient still an active [id number] => Patient remains healed and discussed scar care to area. Patient still an active patient due to BWC case. 01/07/23 09:56 Is Patient Pain Free? Yes WC - Visit Discharge Discharge Condition Stable Ambulatory Status Ambulatory Transportation Private Auto Medication Reconcilliation completed & Yes provided to patient/care provider Clinical Summary of Care Provided Yes Notes: Patient remains healed and discussed scar care to area. Patient still an active patient due to BWC case. 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 She states that her medication and counseling are helping with her anxiety and the nightmares. She states the nightmares she has been experiencing are not as frequent. Wound care - continue massaging the scar tissue with lotion 1-2 times a day to help soften it. She may cover the scar to prevent clothes from rubbing on it. Discussed the importance on the massaging the scar tissue to help soften it and hopefully decrease discomfort. Instructed that she will always have a scar, but the goal is help it be less painful. It was recommended to the patient to use sunscreen when outside to help minimize darkening of the healing scars. She has had [address] an JUAN JOSE wrap for compression. Operative cultures positive for Enterococcus faecalis, Bacteroides stercoris and Peptoniphilus asaccharoyticus, she was treated with Augmentin and probiotic. Instructed her to keep her leg elevated when sitting. Recheck Hgb 11.8 from 07/17/22. She is finishing up PT. Will release her to go back to work on 12/17/22. I initially released her to go back to work with no restrictions but she has not gone back yet due to waiting on clearance from [facility] physician. She may return to work with the restriction that she may sit down and rest as needed when her leg is hurting. She states that she gets pain in her left leg with increased activity, but is unsure how much activity will trigger the pain because it is constantly different. With her painful scar and the numbness in her left foot, will have her evaluated by Dr. Patel in 2 months for further evaluation. I will continue to follow her because of her [facility] claim and she does not feel comfortable going back to where her claim was initiated. Follow up 2 months. Call or come in sooner with any concerns.
== END 2023-01-28 23:59 | disposition home or self-care (01) ==
LOC: WC 09:22
PROVIDERS: PCP Student in an Organized Health Care Education/Training Program; Visit Provider Nurse Practitioner Family
DX: Z09 Encounter for follow-up examination after completed treatment for conditions other than malignant neoplasm (principal); L90.5 Scar conditions and fibrosis of skin; F51.5 Nightmare disorder; F43.10 Post-traumatic stress disorder, unspecified
CPT/HCPCS: 99212; G0463

== ENCOUNTER 2023-03-11 13:04 | Outpatient (RCR) | payer OTHER, SELFPAY ==
[2023-01-29 00:17] VITALS: BP 119/71; PULSE 102; RESP 16; TEMP 36.2; BMI 26.6
[2023-03-11 13:08] VITALS: BP 108/78; PULSE 98; RESP 16; TEMP 36.3; BMI 26.6
--- NOTE | 2023-03-11 14:00 | PCM.WC.PN ---
History of Present Illness Date of Service: 03/11/23 Chief Complaint: Left distal posterior traumatic hematoma/ulcer History of Wound: 52 year old female presents to the wound healing center for evaluation of her left distal posterior leg ulcer that occurred on 05/31/22 while working at [employer]. 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 She states that it initially has a superficial wound with bruising. She was sent to [facility] for evaluation and they have been monitoring her injury. The bruising became more pronounced a couple days after she was seen at [facility]. She states that it has started to become very painful over the past couple weeks and worsened last week when she developed a black scab and now has redness surrounding the ulcer. She presents today to the wound center for further evaluation. She currently on Bactrim from her PCP for a UTI and she was told it would help with bacterial growth from the ulcer. She is denying and drainage from the ulcer. She initially was treating with hydrogen peroxide and antibiotic ointment. 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 She denies any other medical history. Surgery 07/05/22 - Surgical preparation left posterior leg with incision and drainage and evacuation and excisional debridement traumatic hematoma abscess with overlying skin necrosis (18 cm2). Operative culture shows Enterococcus faecalis, Bacteroides stercoris, and Peptoniphilus asaccharolyticus. Today she denies any nausea, vomiting or diarrhea. 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 She had been seeing a counselor at [facility], but they do not take her insurance, so she has found someone else that she is now seeing. Progress of Wound: Ulcer remains healed today. She continues to have pain and tenderness in the scarred area, but there are areas of numbness also. The pain is worse with increased activity. She has completed PT for range of motion, strengthening and scar/pain management. She has been released by me to go back to work. She states that she is active but has noticed if she walks a lot or stands for long periods of time, she experiences increased pain. She states that the scar is numb with numbness extending down into her left lateral foot. Although the scar is numb, she will still get intermittent sharp pain in the scar area and she is unsure what triggers that except for increased activity. Objective Data Objective Data Vital Signs: Vital Signs Temp Pulse Resp BP O2 Del Method 97.4 F L 98 16 108/78 Room Air 03/11/23 13:08 03/11/23 13:08 03/11/23 13:08 03/11/23 13:08 03/11/23 13:08 Oxygen Delivery Method Room Air Weight: 150 lb 11.094 oz Body Mass Index (BMI) 26.6 Charges/Coding Visit Charges Office Visits / Consults: 92692 OV L3 Est Physical Exam Const alert, oriented x3 and no apparent distress General Appearance: cooperative HEENT normocephalic Head and Scalp: atraumatic Eyes General Eye: normal appearance of both eyes Lymph Lymphatic: no lymphedema noted Resp normal respiratory effort and clear to auscultation bilaterally Effort and Inspection: able to speak in complete sentences Cardio regular rate, regular rhythm and S1 normal heart sound GI non-tender Palpation: soft Extremity normal capillary refill General Extremity: Negative for edema Skin Skin Narrative: Left posterior leg ulcer remains healed. There is an indent where the scar is located and the areas surrounding the scar is sensitive to palpation and the scarring is erythematous. She is tolerating the massaging of the scarring to help it soften up, although it is painful to massage it. Neuro CN's II-XII intact bilaterally Psych affect normal Appearance: grossly normal and well kempt Debridement Note Debridement Note Post-Debridement Measurements and Additional Note: Post-Debridement Measurements/Treatment TONI - Nurse 1 - General Ulcer Assessment Start: 03/11/23 13:08 Freq: Status: Active Protocol: TOMASZ Activity Type Activity Date Activity User E-sign Co-sign Detail Recorded Client Recorded Date Recorded By Document 03/11/23 13:08 KW [id number] 03/11/23 13:13 KW 03/11/23 13:08 - Today's Visit Information Type of service Follow-up Visit (Physician/CAD INTERN ) Arrival Mode Ambulatory Accompanied by daughter Patient Identification Verified (Name & Yes ) Height and Weight Body Mass Index (BMI) 26.6 BMI Classification Overweight Vital Signs Temperature (97.8 F-99.1 F) 97.4 F L Temperature Source Temporal Pulse Rate (60-100) 98 Respiratory Rate (12-18) 16 Respiratory rate source Ausculation Oxygen Delivery Method Room Air Blood Pressure (90/60-120/80) 108/78 Blood Pressure Mean (mm Hg) 88 Source Monitor Position Sitting Blood Pressure Location Left Arm History Since Last Visit- (Skip if this is Patient's initial visit) Have you changed medications since your No last visit? Any new allergies or adverse reactions No Had a fall/change in ADL's that may No increase risk of falls Signs or symptoms of abuse and/or No neglect since last visit Have you been in the hospital since your No last visit? Left Footwear Regular Shoe Right Footwear Regular Shoe Pain Scale: 0-10 Numeric Is Patient Pain Free? Yes WC - Nurse 3 - General Ulcer D/C NN Start: 03/11/23 13:08 Freq: Status: Active Protocol: Activity Type Activity Date Activity User E-sign Co-sign Detail Recorded Client Recorded Date Recorded By Document 03/11/23 13:20 [id number] 03/11/23 13:21 03/11/23 13:20 Is Patient Pain Free? Yes Teaching: Wound Center Discharge Instructions -Person Taught Patient,Family -Teaching Method Discussion, Demonstration -Response to teaching Return demonstration, Verbalize understanding WC - Visit Discharge Discharge Condition Stable Ambulatory Status Ambulatory Transportation Private Auto Medication Reconcilliation completed & Yes provided to patient/care provider Clinical Summary of Care Provided Yes Assessment/Plan Assessment/Plan (1) Contusion of left lower extremity: CODE(S): S80.12XA - Contusion of left lower leg, initial encounter (2) Abrasion of left lower extremity: CODE(S): S80.812A - Abrasion, left lower leg, initial encounter (3) Abscess of left lower extremity: CODE(S): L02.416 - Cutaneous abscess of left lower limb (4) Other acute postprocedural pain: CODE(S): G89.18 - Other acute postprocedural pain (5) Anxiety: CODE(S): F41.9 - Anxiety disorder, unspecified (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 Wound care - continue massaging the scar tissue with lotion 1-2 times a day to help soften it. Discussed the importance on the massaging the scar tissue to help soften it and hopefully decrease discomfort. Instructed that she will always have a scar, but the goal is help it be less painful. It was recommended to the patient to use sunscreen when outside to help minimize darkening of the healing scars. She has had 3 applications of Theraskin. Operative cultures positive for Enterococcus faecalis, Bacteroides stercoris and Peptoniphilus asaccharoyticus, she was treated with Augmentin and probiotic. Instructed her to keep her leg elevated when sitting. Recheck Hgb 11.8 from 07/17/22. She is finishing up PT. Will release her to go back to work on 12/17/22. I initially released her to go back to work with no restrictions but she has not gone back to work. She may return to work with the restriction that she may sit down and rest as needed when her leg is hurting. She states that she gets pain in her left leg with increased activity, but is unsure how much activity will trigger the pain because it is constantly different. With her painful scar and the numbness in her left foot, Will have her follow up in the office to be evaluated by Dr. Patel in a couple months.
== END 2023-03-30 23:59 | disposition home or self-care (01) ==
LOC: WC 13:04
PROVIDERS: PCP Student in an Organized Health Care Education/Training Program; Visit Provider Nurse Practitioner Family
DX: Z09 Encounter for follow-up examination after completed treatment for conditions other than malignant neoplasm (principal); L90.5 Scar conditions and fibrosis of skin; F43.10 Post-traumatic stress disorder, unspecified; F51.5 Nightmare disorder
CPT/HCPCS: 99213; G0463

== ENCOUNTER 2023-12-17 16:50 | Observation (INO) | payer OTHER, SELFPAY ==
[2023-12-17] VITALS (12 sets, daily range): BP systolic 97–119; BP diastolic 68–81; PULSE 80–97; RESP 16–18; TEMP 36.2–36.8; O2SAT 86–96; BMI 28.9
--- NOTE | 2023-12-17 10:40 | PCM.HP.BLA ---
History and Physical Date of Admission: 12/17/23 HISTORY OF PRESENT ILLNESS 53 year old woman presents with a painful scar contour deformity left posterior leg. The injury occurred while working at [employer] on 05/31/22. She developed a hematoma with overlying skin necrosis. I saw her at the end of May and I took her to surgery on 07/05/22 where she underwent surgical preparation left posterior leg with incision and drainage and evacuation and excisional debridement traumatic hematoma abscess with overlying skin necrosis (18 cm2). Postoperatively she had aggressive wound care (VAC, Dakin's, and Silver dressings) [facility] along with antibiotics when needed until the ulcer healed. She has residual pain in the back of her leg where the scar is. She also has persistent paresthesias on the side of her foot and on the plantar surface of her foot. The scar contour deformity has adhered to the underlying tendon, so whenever she moves her left leg, the scar tissue pulls on the tendon causing pain. At the time of surgery, the hematoma extended to the Achilles tendon. She presents today for further evaluation and treatment. 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 Eyes -?Denies cataracts or glaucoma. Cardiovascular -?Denies chest pain or dyspnea Respiratory/Chest -?Denies shortness of breath or chronic cough.? Gastrointestinal -?Denies nausea, vomiting, diarrhea, or constipation. Genitourinary -?recovering from recent UTI, on bactrim Musculoskeletal -?Reports extremity pain Integumentary -?has painful scar contour deformity left posterior leg near the ankle. Neurologic -?Has paresthesias in the area of the scar. Psychiatric -?Has depression.? PHYSICAL EXAMINATION General - Alert and Oriented HEENT - PERRL. EOMI.? Throat is clear. Neck - Supple and nontender.? No cervical adenopathy. Lungs - Clear to auscultation. Heart - Regular rate and rhythm. Abdomen - Soft and nondistended. Extremities - FROM. No axillary adenopathy.? Radial pulses are palpable. ? No inguinal adenopathy.? Dorsalis pedis pulses are palpable.? On left posterior leg near the ankle is a scar indentation contour deformity. Measures 3 x 3.5 cm. Tender to palpation. Adherent to the underlying tendon. No ulceration. Neuro - CN II-XII grossly intact. Has decreased sensation in the area of the scar. Psych - Normal mood and affect. ASSESSMENT 1. Contusion left posterior leg. 2. Abrasion left posterior leg. 3. Cutaneous abscess left posterior leg. 4. Painful scar indentation contour deformity left posterior leg near the ankle. 5. Traumatic hematoma left posterior leg near the ankle, sequela. 6. Crushing injury left lower leg, sequela. 7. 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 PLAN Patient has a painful scar indentation contour deformity left posterior leg near the ankle. At the time of the initial surgery, there was exposed Achilles tendon. During the healing process, there is some adherence of the scar to the tendon which is contributing to her pain. Recommend surgical preparation left posterior leg with excision of painful scar indentation contour deformity left posterior leg near the ankle. Reconstruction with skin flap or skin graft. The flap would be my first choice because less of a chance of adherence to the underlying Achilles tendon. To minimize the risk of adherence, may place a piece of acellular dermal matrix graft. That way the flap or the graft would heal to the biologic graft and not the tendon. I would use the skin graft only if there is suboptimal healing of the flap. Another flap may be used to close any residual defects from the suboptimal healing before considering a skin graft. Surgery will be done under general anesthesia with a surgical observation overnight stay in the hospital. Patient was informed of the risks and complications of the procedure including alternatives to surgery. These were discussed with the patient personally. Patient voices understanding and wishes to proceed. Some of the risks and complications were included in a form from the [employer]. Potential risks and complications included but not inclusive of bleeding, infection, seroma, hematoma, bruising, swelling, prolonged need for drains, loss of sensation to skin, partial or complete loss of skin flap and/or nipple graft, wound breakdown, need for wound care, poor scarring, poor aesthetic outcome, intra operative cardiac or neurologic events, DVT, PE, and reaction to anesthesia.
[2023-12-17] MEDS: Lactated Ringers 1,000 ML 15 ML IV ×2 (12:54→17:08)
--- NOTE | 2023-12-17 13:30 | SCAR_PTH ---
PATIENT: ARTI BRAVO LOC: [facility] U#:[id number] AGE/SX: 53/F ROOM: [facility]312 RE12/17/[address]: Dr. Marvin Patel MD : 1970 BED: 1 DIS: 12/18/2023 SPEC #: [id number] RECD: 12/17/23 18:34 STATUS: DWAYNE JUÁREZ #: [id number] LEONOR: 12/17/23 13:[address]: Marvin Patel DEPT: SURGICAL PATHOLOGY RECD BY: Chapis Thomas ENTERED: 12/18/23 06:51 SP TYPE: Scar OTHR DR: Dr. John Montgomery, DO Tissues: CICATRIX/SCAR Procedures: Surgery Specimen Level III HEADER OPERATION: Surgical preparation left posterior leg with excisional debris PRE-OP DIAGNOSIS: Painful scar indentation contour deformity left posterior leg near the ankle TISSUE SUBMITTED: Scar contour deformity- left posterior leg near the ankle MICROSCOPIC DIAGNOSIS Skin and soft tissue of ankle region, excision: Cicatrix. Minimal dermal chronic inflammation. / 12/19/2023 MICROSCOPIC DESCRIPTION Slides are reviewed. GROSS DESCRIPTION Received in fixative is one container labeled with the patient's name and designated Left posterior leg skin and soft tissue. The specimen consists of a teardrop shaped fragment of excised skin measuring 5.3 x 2.2cm and a depth of excision measuring 0.3cm. No cutaneous lesions are identified. The specimen is inked and serially sectioned. Gettering Operator sections are submitted in two cassettes. / 12/18/2023 TC:5 CPT:70536
--- NOTE | 2023-12-17 13:47 | PCM.PRE.AN2 ---
ASA Classification* ASA Classification ASA Classification: 2 Assessment & Plan Anesthesia* Anesthesia Assessment Anesthesia Assessment: Discussed sedation and/or anesthesia options, risks, benefits, and alternatives with patient/parents/legal guardian/POA. Questions invited. The patient/parents/legal guardian/POA seems to understand and agrees to proceed with anesthesia plan. Reviewed the physical assessment, medical history, allergy history and patient home medications list prior to surgery/procedure/anesthetic and documented any changes. Performed airway and anesthesia risk assessments. 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 When Was Last Pacemaker Check QUESTION #4 FULL TEXT: You/Your Family Experience fever (hyperthermia) with Anesthesia Last Oral Intake Last Oral intake: Last Oral Intake NPO since 08:00 12/17/23 12:46 Meds taken in AM with sips of No 12/17/23 12:46 water? Meds patient instructed to take am of surgery Any additional information?: No PONV PONV - chief executive or managing director: PONV - chief executive or managing director Female Yes 12/10/23 08:22 HX of Motion Sickness No 12/10/23 08:22 HX of N/V After Surgery No 12/10/23 08:22 Non-Smoker Yes 12/10/23 08:22 Duration of Surgery greater Yes 12/10/23 08:22 than 60 minutes Number of Risk Factors 3 12/10/23 08:22 PONV Score Moderate Risk 12/10/23 08:22 Height & Weight Height & Weight: Anesthesia: Height & Weight Height 5 ft 3 in 12/17/23 12:46 Weight: 74 kg 12/17/23 12:46 Body Mass Index (BMI) 28.9 12/17/23 12:46 Respiratory Assessment Respiratory Assessment - chief executive or managing director: Respiratory Tract Infection Hx - chief executive or managing director Hx Respiratory Tract Infection No 12/10/23 08:22 STOP Sleep Apnea STOP Sleep Apnea - chief executive or managing director: STOP Sleep Apnea - chief executive or managing director Hx Hypertension No 12/10/23 08:22 Hx Sleep Apnea No 12/10/23 08:22 CPAP BIPAP Do you snore loudly (louder No 12/10/23 08:22 than talking or can be heard Do you often feel tired/ No 12/10/23 08:22 fatigued/ sleepy during daytime? Has anyone observed you stop No 12/10/23 08:22 breathing during sleep? STOP Results Negative 12/10/23 08:22 QUESTION #5 FULL TEXT : Do you snore loudly (louder than talking or can be heard through closed doors)? 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 Specify any problems Hx of Preganancy in last 3 No 12/10/23 08:22 Months Nurse Filling Out Transfusion DSCHRIBER 12/10/23 08:22 & Questions: Date: 12/10/23 12/10/23 08:22 Time: 08:23 12/10/23 08:22 Patient unable to answer at this time (ie. confused, unrespo /Reproduction History /Reproductive History - chief executive or managing director: /Reproductive Hx- chief executive or managing director Hx Now No 12/10/23 08:22 Gestational Age (in weeks): EDC: Hx Hx Para Hx Section SAB No 12/10/23 08:22 Active Medications Active Medications: Current Medications Generic Name Dose Route Start Last Admin Trade Name Freq PRN Reason Stop Dose Admin Ampicillin Sodium/Sulbactam 112 mls @ 150 mls/hr 12/17/23 13:30 Sodium 3 gm/ Sodium Chloride IV 12/17/23 14:14 PREOP ONE Lactated Ringer's 1,000 mls @ 15 mls/hr 12/17/23 12:15 12/17/23 12:54 IV 15 mls/hr .Q48H RONDA Administration Anesthesia Focused Assessment* Temperature: 98.2 F Pulse Rate: 84 Blood Pressure: 119/81 Respiratory Rate: 16 Pulse Ox: 95 Oxygen Delivery Method: Room Air Airway Assessment Mouth opens: >3 cm Mallampati Score: II Teeth Condition: Intact Neck Range of motion (ROM): Full ROM Focused Labs Anesthesia Preop lab: CBC WBC 9.2 K/mm3 (4.4-11.0) 07/06/22 05:16 RBC 3.93 M/mm3 (4.2-5.4) L 07/06/22 05:16 Hgb 11.8 g/dL (12.0-15.0) L 07/06/22 05:16 Hct 36.7 % (37-47) L 07/06/22 05:16 Plt Count 251 K/mm3 (150-450) 07/06/22 05:16 CHEMISTRY Potassium 3.9 mmol/L (3.5-5.1) 07/06/22 05:16 Sodium 140 mmol/L (136-145) 07/06/22 05:16 BUN 16 mg/dL (7-18) 07/06/22 05:16 Creatinine 0.80 mg/dL (0.55-1.02) 07/06/22 05:16 Glucose 179 mg/dL (74-106) H 07/06/22 05:16 COAG Review of Systems (Anesthesia) ROS Narrative System reviewed and no additional complaints, except as documented. 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 Crushing injury of left lower leg, initial encounter Skin necrosis Ulcer UTI (urinary tract infection) Contusion of left lower extremity Home Medications ?Medication ?Instructions ?Recorded ?Last Taken ?Type multivitamin 1 tab PO DAILY 06/26/22 Unknown History ferrous sulfate 325 mg (65 mg 325 mg PO DAILY 12/10/23 Unknown History iron) tablet (Iron (ferrous sulfate)) fluoxetine 40 mg capsule 40 mg PO DAILY 12/10/23 Unknown History lansoprazole 30 mg capsule,delayed 30 mg PO DAILY 12/10/23 Unknown History release Allergy/AdvReac Type Severity Reaction Status Date / Time latex Allergy Intermediate Other Verified 12/17/23 12:39 dicyclomine HCl (From Bentyl) Allergy Other Verified 12/17/23 12:39 Family History Other No pertinent family history Surgical History History of surgery on wrist History of evacuation of hematoma History of bowel resection History of gastric bypass History of hernia repair History of partial gastrectomy Social History Smoking Status: Never smoker alcohol intake: never substance use type: does not use additional social history: Does Not Take Aspirin Does Not Take Ibuprofen
[2023-12-17] MEDS: Ampicillin/Sulbactam 3 GM in 0.9% Normal Saline (100mL MB+) 100 ML IV ×2 (14:04→18:18)
[2023-12-17] MEDS: Lidocaine 1% /Epi 1:100 (20ml) 20 ML Vial (14:32)
[2023-12-17] MEDS: Mupirocin Ointment 22gm Tube 1 APPLIC (15:50)
--- NOTE | 2023-12-17 15:53 | OP.PCM_ITS ---
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 Contusion left posterior leg. 2. Crushing injury left lower leg. 3. Abrasion left posterior leg. 4. Cutaneous abscess left posterior leg. 5. Painful scar indentation contour deformity left posterior leg near the ankle. 6. Traumatic hematoma left posterior leg near the ankle, sequela. 7. Crushing injury left lower leg, sequela. 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 Post-Operative Diagnosis: Same. Surgery/Procedure Performed:: 1. Surgical preparation left posterior leg with excisional debridement painful post-traumatic scar contour deformity. 2. Reconstruction with fasciocutaneous bilobed transposition skin flap (26 cm2) and placement Arthroflex decellularized dermis graft (6 cm2). Description of Surgical Findings:: 53 year old woman presents with a painful scar contour deformity left posterior leg. The injury occurred while working at [employer] on 05/31/22. She developed a hematoma with overlying skin necrosis. I saw her at the end of May and I took her to surgery on 07/05/22 where she underwent surgical preparation left posterior leg with incision and drainage and evacuation and excisional debridement traumatic hematoma abscess with overlying skin necrosis (18 cm2). Postoperatively she had aggressive wound care (VAC, Dakin's, and Silver dressings) [facility] along with antibiotics when needed until the ulcer healed. She has residual pain in the back of her leg where the scar is. She also has persistent paresthesias on the side of her foot and on the plantar surface of her foot. The scar contour deformity has adhered to the underlying tendon, so whenever she moves her left leg, the scar tissue pulls on the tendon causing pain. At the time of surgery, the hematoma extended to the Achilles tendon. She presents today for further evaluation and treatment. Patient was informed of the risks and complications of the procedure including alternatives to surgery. These were discussed with the patient personally. Patient voices understanding and wishes to proceed. Some of the risks and complications were included in a form from the [employer]. Potential risks and complications included but not inclusive of bleeding, infection, seroma, hematoma, bruising, swelling, loss of sensation to skin, partial or complete loss of skin flap and/or skin graft, wound breakdown, need for wound care, poor scarring, poor aesthetic outcome, intra operative cardiac or neurologic events, DVT, PE, and reaction to anesthesia. I used Arthroflex decellularized dermis graft, (4 x 7 cm, 0.76 - 1.25 mm thick). Catalog Number - [id number]. Donation ID Number - [id number]. Expiration - March 29, 2025. I used Joanna absorbable hemostat. Reference Number - [id number]. Lot Number - [id number]. Device Identifier - [id number]. Expiration - January 26, 2028. Surgeon: Marvin Patel MD regional commercial sales manager: Al Bloom MD Type of Anesthesia: General Anesthesiologist: Brannon Bustillos MD and Lo Bishop CRNA and Neris Garza CRNA and JJ Fuentes Specimen's removed: Painful post-traumatic scar contour deformity tissue to Pathology and Microbiology. Drains: None. Estimated Blood Loss (mL): 25. Description of Procedure: Patient was taken to OR in supine position and was placed under general anesthesia. She was then placed in the prone position. The left posterior leg and left posterior thigh areas were prepped and draped in the usual fashion. The left posterior thigh would be the donor area for a skin graft if needed. SCD's were placed for DVT prophylaxis. Perioperative antibiotics were given intravenously. Using xylocaine with epinephrine, the scar contour deformity left posterior leg was infiltrated. After waiting 5 minutes for the anesthetic to take effect, I proceeded with surgical preparation left posterior leg with excisional debridement painful post-traumatic scar contour deformity. It was adherent to the underlying Achilles tendon, and the scar was carefully excised with a scalpel in a tangential direction. The underlying tendon was intact. Half the soft tissue was sent to Pathology for analysis to rule out carcinoma and half the soft tissue was sent to Microbiology for culture. A positive culture will necessitate antibiotic therapy. A bilobed flap was designed at a 90 degree angle and was medially based as there are perforators from the posterior tibial artery in this area. With the crushing effect from the injury, there may be issues with the local blood supply. When I elevated the bilobed flap, I included some fascia at the proximal aspect of the flap making it a fasciocutaneous flap based on the medial perforators from the posterior tibial artery to help maximize blood flow to the flap. Distally there was too much scar tissue present that had been excised so the distal portion of the flap was a subcutaneous flap. After elevation of the bilobed flap, it was easily transposed into the wound defect with minimal tension and minimal distortion. Hemostasis was obtained with electrocautery. The wound was irrigated with saline. Before closing the wound with the flap, I placed a piece of Arthroflex decellularized dermis graft over the exposed Achilles tendon and secured the graft to the tendon with 4-0 Chromic interrupted sutures. The size of the graft was 4 x 7 cm, and I cut off a piece of graft measuring 2 x 3 cm. When flap heals it is unlikely to adhere to the Achilles tendon because of the graft. So the goal is to have the flap glide over the decellularized dermis graft without adherence. The part of Arthroflex that is more adherent was placed downward over the Achilles tendon. The part of Arthroflex that is less adherent (shiny side) will allow the flap to glide over the Achilles tendon when walking. I sprayed Joanna absorbable hemostat into the wound to help minimize seroma formation. After transposing the bilobed flap into the wound, it was closed with minimal tension and minimal distortion. The deep dermis and subcutaneous tissue was approximated with 3-0 Monocryl interrupted sutures. The skin was approximated with 4-0 Prolene simple interrupted sutures. At the end of the procedure, there was no clinical evidence of hematoma and the skin flap showed no evidence of vascular compromise. The size of the wound and the size of the flap needed to close the wound was 26 cm2. I applied antibiotic ointment to the suture line followed by a dry Kerlix and a compression alexis wrap. Patient tolerated the procedure well and was sent to PACU in satisfactory condition. Patient will be sent upstairs for continued postop care. She will be discharged tomorrow when tolerating oral pain medication. She will keep her left leg elevated when sitting. She is allowed to ambulate but minimize standing. When she gets to her destination, she needs to sit and elevate the left leg. Will continue antibiotics until the operative culture is available. If the culture is positive, then antibiotic modification may be necessary. I discussed with the patient that the blood supply may be compromised from the crushing injury. So during the postoperative period, if there is any compromise to the flap, she would benefit from HBO treatments to help salvage the flap. Grafts/Implants Used: Joanna and Arthroflex Procedure Start Time: 14:32 Procedure Stop Time: 15:58 Complications None. Admit VTE Documentation VTE Present on Admission: No VTE Mechan Device Prophylaxis: SCD's VTE Pharm Prophylaxis ordered?: No Addendum Addendum: Surgery charges CPT - 46399 ICD-10 - S80.12xA, S87.82xA, S80.812A, L02.416, L90.5, R52, S80.12xS, S87.82xS, Y92.63 [id number] S80.12xA, S87.82xA, S80.812A, L02.416, L90.5, R52, S80.12xS, S87.82xS, Y92.63 [id number] S80.12xA, S87.82xA, S80.812A, L02.416, L90.5, R52, S80.12xS, S87.82xS, Y92.63
--- NOTE | 2023-12-17 16:15 | PCM.POST.ANE ---
Anesthesia: Postop Eval I Current Vital Signs Temperature: 97.3 F Pulse Rate: 97 Blood Pressure: 112/68 Respiratory Rate: 16 Pulse Ox: 96 Oxygen Delivery Method: Room Air Assessment Airway patent: Yes Spontaneous unlabored respirations: Yes Mental status: Awake and Calm nausea: No Vomiting: No Anesthesia Complication: No Fluid Hydration Crystalloid volume administer (ml): 1,600 Total IV fluid infused: 1,600 Progress Note Anesthesia document: Postop Eval 1 completed: Yes
[2023-12-17] MEDS: HYDROmorphone 1 MG/ML Syringe IV (18:07)
[2023-12-17] MEDS: Ondansetron 4 MG/2 ML Vial IV (18:07)
[2023-12-17] MEDS: oxyCODONE 5 MG Tablet 10 MG PO (20:21)
[2023-12-17] MEDS: Docusate Sodium 100 MG Capsule PO (22:11)
[2023-12-18] MEDS: Ampicillin/Sulbactam 3 GM in 0.9% Normal Saline (100mL MB+) 100 ML IV ×3 (00:02→12:11)
[2023-12-18] MEDS: HYDROmorphone 1 MG/ML Syringe IV (00:10)
[2023-12-18] MEDS: 0.9% Saline Lock 10 ML Syringe IV (00:14)
[2023-12-18 02:01] VITALS: BP 102/64; PULSE 83; RESP 16; TEMP 36.4; O2SAT 95
--- NOTE | 2023-12-18 04:25 | NURSING ---
RN witnessed pt took unknown pill took from her purse, per pt its excedrin for her migraine headache. Educated pt on not taking any medications that aren't ordered by MD and verified by pharmacy while at the hospital. Explained risks/harm of medications interaction that can occur. Pt understood RN and apologized. RN locked the rest of pills in the med room at this time, receipt given to pt. Pt understandable.
[2023-12-18] MEDS: oxyCODONE 5 MG Tablet 10 MG PO ×3 (05:47→16:30)
[2023-12-18 06:00] VITALS: BP 110/83; PULSE 73; RESP 18; TEMP 36.3; O2SAT 98
[2023-12-18 07:33] LABS: Hematocrit 33.8 % (37-47); Hemoglobin 10.7 g/dL (12.0-15.0); Mean Corp Hgb Conc 31.7 g/dL (32-36); Mean Corpuscular Hgb 29.9 pg (27.0-32.0); Mean Corpuscular Volume 94.4 fL (81-99); Mean Platelet Vol. 11.7 fl (6.2-12.0); Platelet Count 250 K/mm3 (150-450); RBC Distribution Width CV 13.8 % (11.6-14.6); RBC Distribution Width SD 46.7 fl (35.1-43.9); Red Blood Count 3.58 M/mm3 (4.2-5.4); White Blood Count 8.2 K/mm3 (4.4-11.0)
--- NOTE | 2023-12-18 08:18 | POSTOPAN2_ITS ---
Anesthesia Postop Eval I Sum Postop Eval Completion status Anesthesia document: Postop Eval 1 completed: Yes Anesthesia Postop Eval I Summary Anesthesia Postop Eval I Summary: Anesthesia Postop Eval I: Assessment Summary Airway patent Yes 12/17/23 16:15 [email or web address] Spontaneous unlabored Yes 12/17/23 16:15 [email or web address] [email or web address] respirations Mental status Awake,Calm 12/17/23 16:15 [email or web address] [email or web address] nausea No 12/17/23 16:15 [email or web address] [email or web address] Vomiting No 12/17/23 16:15 [email or web address] Anesthesia Postop Eval I: Fluid Summary Crystalloid volume administer 1,600 12/17/23 16:15 [email or web address] (ml) Colloids volume administered ( ml) Blood Product volume administered (ml) Total IV fluid infused 1,600 12/17/23 16:15 [email or web address] [email or web address] Anesthesia Postop Eval I: Summary Notes Anesthesia Complication No 12/17/23 16:15 [email or web address] Anesthesia Complication Comment: Post-operative progress note Anesthesia: Postop Eval II Evaluation Mental status: Awake and Calm Pain Level: 4 nausea: No Vomiting: No Complications Anesthesia Complication: No
--- NOTE | 2023-12-18 08:18 | PCM.POSTANE2 ---
Anesthesia Postop Eval I Sum Postop Eval Completion status Anesthesia document: Postop Eval 1 completed: Yes Anesthesia Postop Eval I Summary Anesthesia Postop Eval I Summary: Anesthesia Postop Eval I: Assessment Summary Airway patent Yes 12/17/23 16:15 [email or web address] Spontaneous unlabored Yes 12/17/23 16:15 DRILLER BRAKE [email or web address] respirations Mental status Awake,Calm 12/17/23 16:15 DRILLER BRAKE [email or web address] nausea No 12/17/23 16:15 DRILLER BRAKE [email or web address].[email or web address] Vomiting No 12/17/23 16:15 DRILLER [email or web address] [email or web address] Anesthesia Postop Eval I: Fluid Summary Crystalloid volume administer 1,600 12/17/23 16:15 DRILLER BRAKE [email or web address].[email or web address] (ml) Colloids volume administered ( ml) Blood Product volume administered (ml) Total IV fluid infused 1,600 12/17/23 16:15 DRILLER BRAKE [email or web address] Anesthesia Postop Eval I: Summary Notes Anesthesia Complication No 12/17/23 16:15 DRILLER BRAKE [email or web address] Anesthesia Complication Comment: Post-operative progress note Anesthesia: Postop Eval II Evaluation Mental status: Awake and Calm Pain Level: 4 nausea: No Vomiting: No Complications Anesthesia Complication: No
[2023-12-18 08:20] LABS: Anion Gap 7 (5-15); BUN 15 mg/dL (7-18); Calcium,Total 8.8 mg/dL (8.5-10.1); Chloride 108 mmol/L (98-107); Creatinine, Serum 0.79 mg/dL (0.55-1.02); EST Glomerular Filtration Rate 81 mL/min (>60); Est Glom Filt Rate - Afr Amer 98 mL/min (>60); Estimated Creatinine Clearance 80.27 ml/min; Glucose 124 mg/dL (74-106); Potassium 3.9 mmol/L (3.5-5.1); Sodium Level 142 mmol/L (136-145)
[2023-12-18] MEDS: Ondansetron 4 MG/2 ML Vial IV (09:00)
[2023-12-18] MEDS: Docusate Sodium 100 MG Capsule PO (09:01)
[2023-12-18] MEDS: Fluoxetine HCl 40 MG CAPSULE PO (09:02)
[2023-12-18] MEDS: Pantoprazole Sodium 40 MG Tablet PO (09:02)
[2023-12-18] MEDS: Ferrous Sulfate 325 MG Tablet PO (09:02)
[2023-12-18 09:18] VITALS: BP 111/77; PULSE 82; RESP 18; TEMP 36.7; O2SAT 93
[2023-12-18] MEDS: Acetaminophen 500 MG Tablet 1000 MG PO (09:30)
[2023-12-18] MEDS: proMETHazine 25 MG Tablet PO ×2 (09:50→16:30)
[2023-12-18] MEDS: Enoxaparin 40 MG/0.4 ML Syringe SC (09:51)
--- NOTE | 2023-12-18 11:03 | CASEMGMT ---
Addendum entered by Elda Mcgregor 12/18/23 11:29: KEVEN SCHROEDER spoke w/Jaja, PT, who had not reviewed Pj/PT note yet. Per Jaja, she does not recommend OP PT at discharge, stating once pt's pain is under control she will be able to manage well @ home and does not need further therapy. KEVEN SCHROEDER back to room and discussed this pt w/pt/made aware of above. She voices appreciation. KEVEN SCHROEDER advised to f/u with Dr Patel, as per previously planned. She denies having other dc needs/concerns. Nehemiah ORNELAS RN, CM Original Note: KEVEN SCHROEDER NOTE: PT eval note from today reviewed. Additional therapy recommended. Pt having LLE pain and was unable to bear weight. KEVEN SCHROEDER to room. Introduced self and role. Pt resting in bed. Pt is indep @ home, lives w/family, has 2 steps to enter home, and has good family support. Pt has a WW and denies needing any additional DME. Discussed therapy @ discharge. Pt states she is not sure yet if she will want to do OP therapy. She states she will think about it and asked KEVEN SCHROEDER to f/u with her later today. She denies other discharge needs/concerns. Plan: Home w/family support and possible OP therapy. KEVEN SCHROEDER to f/u with pt later today. Nehemiah ORNELAS RN, CM
--- NOTE | 2023-12-18 13:26 | DCINST_ITS ---
Discharge Instructions Diet Discharge Diet: No restrictions (High protein for wound healing) Activity Discharge Activity: May Shower (with shower boot on left leg) and Use Walker (as needed) May resume sexual activity in: 10-14 days Weight Bearing Status: Weight bearing as tolerated Lifting Restrictions: 10 lb weight lifting restriction Keep extremity elevated above heart level: Operative Extremity Additional Activity Instructions:: May walk. Avoid standing for long periods of time (greater than 15 minutes) Dressing / Incision Call your doctor if your incision/area has: Continuous Slow Oozing, Sudden Increased Bleeding, Increased Pain/ Swelling, Increased Redness and Foul Smelling Discharge Call your doctor if you observe: Fever of 101 or Higher, Coldness, Increased Pain, Inability to urinate, Inability to have a bowel movement, Shortness of breath, Calf discomfort and Uncontrolled pain Change Dressing in: 2 days Remove Dressing in: 2 days (dry dressing, change as needed. Keep JUAN JOSE wrap on for compression.) Cleanse incision/area with: Soap & Water (to remove betadine) Additional Dressing/Incision Instructions:: Dry dressing to incision to protect from JUAN JOSE wrap Follow Up Care Please Follow Up With: Lynsey Johnson SAFETY INVESTIGATOR/CAUSE ANALYST, SAFETY INVESTIGATOR/CAUSE ANALYST-C When: One week, call office for appointment [phone] Test Results: Test results from this visit will be discussed in further detail at your follow- up appointment, if applicable. Discharge Plan Admission Admit Date/Time: 12/17/23 16:50 Attending Provider: Marvin Patel Primary Care Provider: John Montgomery Discharge Orders/Prescriptions Prescriptions: New oxycodone-acetaminophen [Percocet] 5-325 mg tablet 1 tab PO Q4H PRN (Reason: pain (scale score 7-10)) 7 Days Qty: 42 0RF promethazine 25 mg tablet 25 mg PO Q6H PRN (Reason: nausea and vomiting) 5 Days Qty: 20 0RF gabapentin [Neurontin] 300 mg capsule 300 mg PO BID 30 Days Qty: 60 0RF amoxicillin-pot clavulanate 875-125 mg tablet 1 tab PO Q12H 7 Days Qty: 14 0RF docusate sodium [Colace] 100 mg capsule 100 mg PO DAILY PRN (Reason: constipation) 10 Days Qty: 10 0RF Continued multivitamin Tablet 1 tab PO DAILY lansoprazole 30 mg capsule,delayed release(DR/EC) 30 mg PO DAILY ferrous sulfate [Iron (ferrous sulfate)] 325 mg (65 mg iron) tablet 325 mg PO DAILY fluoxetine 40 mg capsule 40 mg PO DAILY Rx Instructions: take 1 capsule by mouth once daily Referrals / Follow Up: John Montgomery DO [Primary Care Provider] - Disposition Disposition (needs filled in before D/C Order can be placed): Home, Self Care
--- NOTE | 2023-12-18 13:40 | PCM.PN.SRG ---
Subjective Subjective Postop #1 She has been having difficulty with increased pain and nausea all night. She was given phenergan, and tylenol in addition to her Oxy which did help control her symptoms. Objective Data Objective Data Vital Signs: Vital Signs Temp Pulse Resp BP Pulse Ox O2 Del Method O2 Flow Rate 98.0 F 82 18 111/77 93 Room Air 2 12/18/23 09:18 12/18/23 09:18 12/18/23 09:18 12/18/23 09:18 12/18/23 09:18 12/18/23 06:00 12/17/23 16:30 Oxygen Flow Rate (L/min) 2 Oxygen Delivery Method Room Air Weight: 163 lb 2.273 oz Body Mass Index (BMI) 28.9 Intake & Output: Intake and Output for Last 24 Hours 12/16/23 12/17/23 12/18/23 23:59 23:59 23:59 Intake Total 1224 / 1224 328.25 / 328.25 Output Total 250 / 250 200 / 200 Balance 974 / 974 128.25 / 128.25 Lab / Micro Data 12/18/23 06:40 12/18/23 06:40 Labs: Laboratory Results - last 24 hr 12/18/23 06:40: WBC 8.2, RBC 3.58 L, Hgb 10.7 L, Hct 33.8 L, MCV 94.4, MCH 29.9, MCHC 31.7 L, RDW Std Deviation 46.7 H, RDW Coeff of Yulissa 13.8, Plt Count 250, MPV 11.7, Sodium 142, Potassium 3.9, Chloride 108 H, Carbon Dioxide 27.0, Anion Gap 7, BUN 15, Creatinine 0.79, Estim Creat Clear Calc 80.27, Est GFR (MDRD) Af Amer 98, Est GFR (MDRD) Non-Af 81, BUN/Creatinine Ratio 19.0, Glucose 124 H, Calcium 8.8, Prealbumin 23.0 Micro: Microbiology 12/17/23 14:43 Tissue - Leg, Left Gram Stain - Final Physical Exam Const oriented x3 Resp normal respiratory effort Cardio regular rate GI soft to palpation and non-tender Extremity Extremity Narrative: Left leg very sensitive to light touch and movement. Removed operative dressing. Incision dry and intact. There is a small amount of bruising on the small pointed portion of the bilobed transposition flap. Assessment & Plan Assessment/Plan (1) Contusion of left lower extremity: (2) Abscess of left lower extremity: (3) History of evacuation of hematoma: (4) Painful scar: (5) Adherent scar: (6) Crushing injury of left lower leg, sequela: (7) Contusion of left lower leg, sequela: (8) Abrasion of left lower extremity: (9) Complex regional pain syndrome type 1 of lower extremity: (10) Other acute postprocedural pain: (11) Anxiety: PLAN: Plan Patient was having difficulty with pain and nausea throughout the night. It has improved with the phenergan and adding the Tylenol along with the oxy. Her incision is dry and intact. There is a small amount of bruising on the edge of the pointed lobe of her flap. Will monitor this closely. She is to keep a dry dressing over the incision and JUAN JOSE wrap for compression. Instructed her that she may weightbear as much as tolerated. She may use a walker/crutches/cane if needed. She is to avoid standing for any length of time (walking is ok, just not idle standing). When sitting she is to keep her leg elevated. She will be prescribed Augmentin postoperatively. For pain she will be prescribed Percocet prn (PDMP reviewed). For nausea she will be prescribed Phenergan. Discussed with Dr. Patel about the bruising on the one lobe of her graft and he is recommending HBO therapy. She will follow up at the wound center next week for me to evaluate her incision and for the HBOT consult. Charges/Coding Procedures Integumentary [id number]: [id number] Global Visit
[2023-12-18 14:00] VITALS: BP 108/61; PULSE 75; RESP 18; TEMP 36.7; O2SAT 94
--- NOTE | 2023-12-18 14:11 | PHA.DC.MC.R ---
Pharmacy [facility] has performed discharge medication reconciliation and counseling for this patient. Patient requested medication delivery, RX student Shaylee called and requested delivery. 1. AUGMENTIN 875MG PO BID X 7 DAYS 2. DOCUSATE 100MG PO DAILY PRN CONSTIPATION 3. GABAPENTIN 300MG PO BID 4. PERCOCET 5/325MG 1T PO Q4H PRN PAIN 7-10 5. PROMETHAZINE 25MG PO Q6H PRN N/V The patient's discharge medication list was reviewed for discrepancies and discrepancies were resolved. The patient was counseled on the following discharge medications and changes in medications for homegoing were reviewed. The Reason for Use, instructions for use, and potential side effects were reviewed for all new medications. The patient's questions regarding all of their medications were answered. The patient was able to verbally demonstrate an understanding of their discharge medications. Patient counseled by pharmacy directorShaylee. Medications at Discharge Home Medications multivitamin 1 tab PO DAILY 06/26/22 ferrous sulfate 325 mg (65 mg iron) tablet (Iron (ferrous sulfate)) 325 mg PO DAILY 12/10/23 fluoxetine 40 mg capsule 40 mg PO DAILY 12/10/23 lansoprazole 30 mg capsule,delayed release 30 mg PO DAILY 12/10/23 amoxicillin 875 mg-potassium clavulanate 125 mg tablet 1 tab PO Q12H 7 days #14 tabs 12/18/23 docusate sodium 100 mg capsule (Colace) 100 mg PO DAILY PRN constipation 10 days #10 caps 12/18/23 gabapentin 300 mg capsule (Neurontin) 300 mg PO BID 30 days #60 caps 12/18/23 oxycodone-acetaminophen 5 mg-325 mg tablet (Percocet) 1 tab PO Q4H PRN pain (scale score 7-10) 7 days #42 tabs 12/18/23 promethazine 25 mg tablet 25 mg PO Q6H PRN nausea and vomiting 5 days #20 tabs 12/18/23
[2023-12-18 14:30] VITALS: BP 121/74; PULSE 80; RESP 18; TEMP 37.1; O2SAT 93
== END 2023-12-18 17:05 | disposition home or self-care (01) ==
LOC: SDC 17:07 → MS3 17:07
PROVIDERS: Admitting Provider Surgery; PCP Student in an Organized Health Care Education/Training Program; Referring Provider Surgery; Visit Provider Surgery
PROC: (CPT 15002; principal; 2023-12-17 13:15)
DX: L90.5 Scar conditions and fibrosis of skin (principal); S80.12XS Contusion of left lower leg, sequela; G90.529 Complex regional pain syndrome I of unspecified lower limb; L02.416 Cutaneous abscess of left lower limb; F41.9 Anxiety disorder, unspecified; S80.812A Abrasion, left lower leg, initial encounter; Z79.899 Other long term (current) drug therapy; S87.82XS Crushing injury of left lower leg, sequela; X58.XXXS Exposure to other specified factors, sequela; Y92.63 Factory as the place of occurrence of the external cause; Y99.0 Civilian activity done for income or pay; Z98.84 Bariatric surgery status; K21.9 Gastro-esophageal reflux disease without esophagitis
CPT/HCPCS: 15002; 15738; 15271; 00400; 80048; 84134; 85027; 87070; 87075; 87102; 87205; 87206; 88304; 94668; 96365; 96366; 96372; 96375; 96376; 97162; 99221; J7120; A4216; G0378; J0295; J2405

== ENCOUNTER 2024-01-27 13:00 | Outpatient (RCR) | payer OTHER, SELFPAY ==
[2024-01-13 13:57] VITALS: BP 115/77; PULSE 82; RESP 16; TEMP 36.3; BMI 28.3
--- NOTE | 2024-01-13 15:05 | PCM.CONHBO ---
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 She has 10% compromise of her skin flap on her left distal posterior leg. She would benefit from HBO therapy. She has been approved for by [facility] to be evaluated at the wound healing center for a consultation for HBOT. She also has been approved for up to 30 treatments for HBOT, if necessary. I do feel that the HBOT would be beneficial to help with the compromised skin flap. She will need a chest xray and and EKG before starting HBO therapy. I will apply to [facility] for these. She would also benefit from from some physical therapy to help with evaluation, treatment for range of motion, strengthening and pain management. I'm concerned the increased pain she is experiencing could be related to her Complex Regional pain syndrome that was caused by the injury that she obtained. It was a crush injury and although initially it appeared that only soft tissue involvement was the only issue, as she has healed over these past couple years, her pain continues to be an issue in this area. Hopefully HBOT may help with this, in addition to physical therapy. IF these conservative measures do not improve her pain, then she may need to be treated with a calcium channel blanco, Elavil and possibly referred to pain management. Wound care - Collagen hydrogel covered with gauze. Compression - TOM wrap. Keep left leg elevated as much as possible to help reduce swelling. Will order EKG and Chest xray as prerequisite for HBO therapy. Will wait until [facility] approves these tests before obtaining them. She is to continue the Gabapentin for her burning pain. She may also try tylenol or ibuprofen as directed on labels. Follow up one week. History of Present Illness Date of Service: 01/13/24 Chief Complaint: Left distal posterior traumatic hematoma/ulcer History of Wound: 53 year old female presents to the wound healing center for evaluation of her left distal posterior leg skin flap that has some compromise after her surgery on 12/17/23 for painful scar contour deformity. She initially has some bruising on the top corner of the flap. The compromise is now about 10% on the edge of the flap. She has been placing antibiotic ointment to the incision line and covering with gauze and wearing an TOM wrap for compression. She has been encouraged to keep her foot elevated as much as possible. In November when the compromised flap was first evaluated, I spoke with her surgeon, Dr. Patel who recommended her being evaluated for the possibility of HBO therapy. Applied to [facility] for her to be seen and evaluated at the wound healing center. With the compromise on the edge of the flap, she would benefit from Hyperbaric Oxygen therapy to help with the healing of this skin flap. Surgery 12/17/23 -1. Surgical preparation left posterior leg with excisional debridement painful post-traumatic scar contour deformity. 2. Reconstruction with fasciocutaneous bilobed transposition skin flap (26 cm2) and placement Arthroflex decellularized dermis graft (6 cm2). The initially injury occurred while working at [employer] on 05/31/22. She developed a hematoma with overlying skin necrosis. She went to surgery on 07/05/22 where she underwent surgical preparation left posterior leg with incision and drainage and evacuation and excisional debridement traumatic hematoma abscess with overlying skin necrosis (18 cm2). Postoperatively she had aggressive wound care (VAC, Dakin's, and Silver dressings) at the Wound Center along with antibiotics when needed until the ulcer healed. She has residual pain in the back of her leg where the scar is. She also has persistent paresthesias on the side of her foot and on the plantar surface of her foot. The scar contour deformity has adhered to the underlying tendon, so whenever she moves her left leg, the scar tissue pulls on the tendon causing pain. At the time of surgery, the hematoma extended to the Achilles tendon. 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 She denies any other medical history. Surgery 07/05/22 - Surgical preparation left posterior leg with incision and drainage and evacuation and excisional debridement traumatic hematoma abscess with overlying skin necrosis (18 cm2). Today she denies any nausea, vomiting or diarrhea. Progress of Wound: Left posterior distal leg skin flap is intact but there is scabbing along the edge of the flap. She had some redness in this area which resolved with compression, elevation and she was placed on Cefadroxil on 01/01/24. She has burning pain with this area. She will take Neurontin at bedtime, but it makes her too sleepy during the day to be able to take this. She has had pain in this area since her initial injury. She is walking with a limp at this time. 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 Crushing injury of left lower leg, initial encounter Skin necrosis Ulcer UTI (urinary tract infection) Contusion of left lower extremity Home Medications ?Medication ?Instructions ?Recorded ?Last Taken ?Type multivitamin 1 tab PO DAILY 06/26/22 Unknown History ferrous sulfate 325 mg (65 mg 325 mg PO DAILY 12/10/23 Unknown History iron) tablet (Iron (ferrous sulfate)) fluoxetine 40 mg capsule 40 mg PO DAILY 12/10/23 Unknown History lansoprazole 30 mg capsule,delayed 30 mg PO DAILY 12/10/23 Unknown History release docusate sodium 100 mg capsule 100 mg PO DAILY PRN constipation 12/18/23 Unknown Rx (Colace) 10 days #10 caps gabapentin 300 mg capsule 300 mg PO BID 30 days #60 caps 12/18/23 Unknown Rx (Neurontin) oxycodone-acetaminophen 5 mg-325 1 tab PO Q4H PRN pain (scale score 12/18/23 Unknown Rx mg tablet (Percocet) 7-10) 7 days #42 tabs promethazine 25 mg tablet 25 mg PO Q6H PRN nausea and 12/18/23 Unknown Rx vomiting 5 days #20 tabs Allergy/AdvReac Type Severity Reaction Status Date / Time latex Allergy Intermediate Other Verified 01/07/24 09:23 dicyclomine HCl (From Bentyl) Allergy Other Verified 01/07/24 09:23 Family History Other No pertinent family history Surgical History History of surgery on wrist History of evacuation of hematoma History of bowel resection History of gastric bypass History of hernia repair History of partial gastrectomy Social History Smoking Status: Never smoker alcohol intake: never substance use type: does not use additional social history: Does Not Take Aspirin Does Not Take Ibuprofen ROS Constitutional Constitutional: Denies chills or fever(s) Eyes Eyes: Reports none ENT HEENT: Reports none Cardiovascular Cardiovascular: Denies chest pain or dyspnea Respiratory/Chest Respiratory/Chest: Reports none Gastrointestinal Gastrointestinal: Reports none Genitourinary Genitourinary: Reports none Musculoskeletal Musculoskeletal: Reports extremity pain Integumentary Integumentary: Reports other Details: Left posterior leg flap with compromise on the edge of the flap Neurologic Neurologic: Reports none Psychiatric Psychiatric: Reports anxiety Endocrine Endocrinology: Reports none Hematologic/Lymphatic Hematologic/Lymphatic: Reports none Physical Exam Physical Exam Const alert, oriented x3 and no apparent distress General Appearance: cooperative HEENT normocephalic Head and Scalp: atraumatic Nose: external nose normal Tympanic Membrane: TM's normal bilaterally Eyes General Eye: normal appearance of both eyes Neck full ROM Lymph Lymphatic: no lymphedema noted Resp normal respiratory effort, normal air movement and clear to auscultation bilaterally Effort and Inspection: able to speak in complete sentences Cardio regular rate, regular rhythm, S1 normal heart sound, S2 normal heart sound and no murmurs GI normal to inspection, nondistended, normoactive bowel sounds, soft to palpation and non-tender Back/Spine normal ROM Extremity Extremity Narrative: Walks with a limp on left leg due to pain. Has +1 swelling left lower extremity. Has difficulty flexing and extending foot at ankle due to discomfort and scarring. Peripheral Pulses: Yes pulses 2+ throughout Skin Wound Narrative: Left distal posterior leg skin flap with some scabbing/compromise on the edge of the flap. Bruising and blisters have resolved. Neuro oriented x3 Psych thought process normal, cooperative and affect normal Appearance: grossly normal Activity / Motor Behavior: appropriate eye contact Speech: normal speech Assessment and Debridement #1- L LOWER CALF CLUSTER: Wound Debrided: Posterior distal leg skin flap Laterality: Left Debridement not Completed: No debridement was completed today Nursing Assessment and Debridement Post-Debridement Measurements and Additional Note: Post-Debridement Measurements/Treatment - Nurse 1 - General Ulcer Assessment Start: 01/13/24 13:57 Freq: Status: Active Protocol: TOMASZ Activity Type Activity Date Activity User E-sign Co-sign Detail Recorded Client Recorded Date Recorded By Document 01/13/24 13:57 [facility] [email or web address] 01/13/24 14:07 [facility] 01/13/24 13:57 - Today's Visit Information Type of service Initial Visit Arrival Mode Ambulatory Transfer Assistance None Accompanied by daughter Patient Identification Verified (Name & Yes ) Patient Requires Transmission-Based No Precautions Height and Weight Height 5 ft 3 in Weight 160 lb Weight in Pounds 160.0 lbs Weight Measurement Method Stated by Patient Body Mass Index (BMI) 28.3 BMI Classification Overweight BSA - Laura 1.76 Vital Signs Temperature (97.8 F-99.1 F) 97.4 F L Temperature Source Temporal Pulse Rate (60-100 beats/min) 82 Pulse Location Monitor Respiratory Rate (12-18 breaths/min) 16 Respiratory rate source Observation Oxygen Delivery Method Room Air Blood Pressure (90/60-120/80 mm Hg) 115/77 Blood Pressure Mean (mm Hg) 89 Source Monitor Position Sitting Blood Pressure Location Left Arm History Since Last Visit- (Skip if this is Patient's initial visit) Left Footwear Regular Shoe Right Footwear Regular Shoe Pain Scale: 0-10 Numeric Is Patient Pain Free? Yes Communication Assessment Preferred language [place] Egg Candler Required No Able to Read Yes Able to Write Yes Communication Tools None Right Hearing Abillity Normal Left Hearing Abillity Normal Teaching Assessment Preferences Verbal,Written, Audio/Visual, Demonstration Barriers to Learning None Readiness To Learn Excellent Willingness to Engage in Self Management High Activies Readiness to Engage in Self Management High Activities Anxiety Level Calm Cooperation Cooperative Perception Coherent Interest in Health Problem Asks Questions Education Importance Acknowledges Need Does Patient Smoke tobacco or other No substances Smoking Status Never smoker Is Patient Diabetic No Functional Assessment Recent Decline in Ability to Perform Ambulation Culture/Alevism/Visual Supervisor Cultural/Alevism Needs that may affect No Treatment Plan TONI - Nurse 1 - General Ulcer Measurement Start: 01/13/24 13:57 Freq: Status: Active Protocol: Activity Type Activity Date Activity User E-sign Co-sign Detail Recorded Client Recorded Date Recorded By Document 01/13/24 13:57 [facility] 10..25.7 01/13/24 14:07 [facility] 01/13/24 13:57 Wound Center Nurse 1 #3- L LOWER CALF POST OP -Combined with other wound No -Current Size (cm) - Length 0.1 -Current Size (cm) - Width 0.1 -Current Size (cm) - Depth 0.1 -Total Square Cm 0.01 -Date of Last Picture (Recall this 01/13/24 field) -Photo Taken Yes -Tunneling No -Undermining/Tunneling No -Circular Undermining No -Exudate Amt Medium -Exudate Type Serosanguineous -Wound Margin Distinct, Outline Attached -Texture (Nilsa-wound Skin Appearance) Assessed, Scarring -Moisture (Nilsa-wound Skin Appearance) Assessed -Color (Nilsa-wound Skin Appearance) Assessed, Erythema -Temperature (Nilsa-wound Skin No Abnormality Appearance) (Pt Warm) -Tenderness on Palpation (Nilsa-wound Yes Skin Appearance) -Ulcer Cleansing Rinsed/ Irrigated with Saline -Foul Odor after Cleansing No -Anesthetic Used 5% Lidocaine Gel -Wound Comment(s) SUTURES INTACT POST OP Lower Limb Edema Present Yes Left Calf (cm) 36 Left Ankle (cm) 20.7 WC - Nurse 2 - General Ulcer CM Notes Start: 01/13/24 13:57 Freq: Status: Active Protocol: Activity Type Activity Date Activity User E-sign Co-sign Detail Recorded Client Recorded Date Recorded By Document 01/13/24 14:26 [facility] 10..25.7 01/13/24 14:36 [facility] 01/13/24 14:26 Wound Center Nurse 2 #3- L LOWER CALF POST OP -Time 14:33 -Post Debridement (cm) - Length 0.1 -Post Debridement (cm) - Width 0.1 -Post Debridement (cm) - Depth 0.1 -Total Square (Post) (cm) 0.01 -Area of Debridement (cm) - Length 0.1 -Area of Debridement (cm) - Width 0.1 -Total Square (Area) (cm) 0.01 -Tunneling No -Undermining/Tunneling No -Circular Undermining No -Wound/Ulcer Outcome Not Healed -Bleeding Controlled with NA -Wound Comment(s) SUTURES REMOVED IN CLINIC Pain Scale: 0-10 Numeric Is Patient Pain Free? Yes - Nurse 3 - General Ulcer D/C NN Start: 01/13/24 13:57 Freq: Status: Active Protocol: Activity Type Activity Date Activity User E-sign Co-sign Detail Recorded Client Recorded Date Recorded By Document 01/13/24 14:51 [facility] [email or web address] 01/13/24 14:52 [facility] 01/13/24 14:51 Wound Care Center Nurse 3 #3- L LOWER CALF POST OP -Ulcer Cleansing Not Cleansed -Foul Odor after Cleansing No -Primary Dressing Applied C Hydrogel ($) -Primary Dressing Covered/Secured with Dry Gauze & Roll Gauze, Secured with Tape -Other Covering tom Left -Compression Wrap Tom Wrap Treatment Response Procedure Tolerated Well Pain Scale: 0-10 Numeric Is Patient Pain Free? Yes WC - Visit Discharge Discharge Condition Stable Ambulatory Status Ambulatory Transportation Private Auto Charges/Coding Visit Charges Office Visits / Consults: [id number] OV L4 Est 30min (58 modifier)
--- NOTE | 2024-01-15 08:48 | WC ---
PHOTO 01/13/2024 LOWER CALF
[2024-01-20 14:24] VITALS: BP 100/72; PULSE 91; RESP 16; TEMP 36.3; BMI 28.3
--- NOTE | 2024-01-20 15:23 | PCM.WC.PN ---
History of Present Illness Date of Service: 01/20/24 Chief Complaint: Left distal posterior traumatic hematoma/ulcer History of Wound: 53 year old female presents to the wound healing center for evaluation of her left distal posterior leg skin flap that has some compromise after her surgery on 12/17/23 for painful scar contour deformity. She initially has some bruising on the top corner of the flap. The compromise is now about 10% on the edge of the flap. She has been placing antibiotic ointment to the incision line and covering with gauze and wearing an TOM wrap for compression. She has been encouraged to keep her foot elevated as much as possible. In November when the compromised flap was first evaluated, I spoke with her surgeon, Dr. Patel who recommended her being evaluated for the possibility of HBO therapy. Applied to [employer] for her to be seen and evaluated at the wound healing center. With the compromise on the edge of the flap, she would benefit from Hyperbaric Oxygen therapy to help with the healing of this skin flap. Surgery 12/17/23 -1. Surgical preparation left posterior leg with excisional debridement painful post-traumatic scar contour deformity. 2. Reconstruction with fasciocutaneous bilobed transposition skin flap (26 cm2) and placement Arthroflex decellularized dermis graft (6 cm2). The initially injury occurred while working at [employer] on 05/31/22. She developed a hematoma with overlying skin necrosis. She went to surgery on 07/05/22 where she underwent surgical preparation left posterior leg with incision and drainage and evacuation and excisional debridement traumatic hematoma abscess with overlying skin necrosis (18 cm2). Postoperatively she had aggressive wound care (VAC, Dakin's, and Silver dressings) at the Wound Center along with antibiotics when needed until the ulcer healed. She has residual pain in the back of her leg where the scar is. She also has persistent paresthesias on the side of her foot and on the plantar surface of her foot. The scar contour deformity has adhered to the underlying tendon, so whenever she moves her left leg, the scar tissue pulls on the tendon causing pain. At the time of surgery, the hematoma extended to the Achilles tendon. 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 She denies any other medical history. Surgery 07/05/22 - Surgical preparation left posterior leg with incision and drainage and evacuation and excisional debridement traumatic hematoma abscess with overlying skin necrosis (18 cm2). Today she denies any nausea, vomiting or diarrhea. Progress of Wound: Left posterior distal leg skin flap is intact but there is scabbing along the edge of the flap. The most proximal portion of the flap is where the compromise is most severe. Today there is angry erythema along the entire incision. She has significant hypersensitivity to the point that she does not want it touched. She describes the pain as burning/tingling with numbness that is distal to the flap. The numbness is nothing new, she has been experiencing this since her initial injury. She walks with a limp. Objective Data Objective Data Vital Signs: Vital Signs Temp Pulse Resp BP O2 Del Method 97.3 F L 91 16 100/72 Room Air 01/20/24 14:24 01/20/24 14:24 01/20/24 14:24 01/20/24 14:24 01/20/24 14:24 Oxygen Delivery Method Room Air Weight: 160 lb Body Mass Index (BMI) 28.3 Charges/Coding Procedures Integumentary 111xxx-113xx: 12076 Global Visit Physical Exam Const alert, oriented x3 and no apparent distress General Appearance: cooperative HEENT normocephalic Head and Scalp: atraumatic Nose: external nose normal Tympanic Membrane: TM's normal bilaterally Eyes General Eye: normal appearance of both eyes Neck full ROM Lymph Lymphatic: no lymphedema noted Resp normal respiratory effort, normal air movement and clear to auscultation bilaterally Effort and Inspection: able to speak in complete sentences Cardio regular rate, regular rhythm, S1 normal heart sound, S2 normal heart sound and no murmurs GI normal to inspection, nondistended, normoactive bowel sounds, soft to palpation and non-tender Back/Spine normal ROM Extremity Extremity Narrative: Walks with a limp on left leg due to pain. Has +1 swelling left lower extremity. Has difficulty flexing and extending foot at ankle due to discomfort and scarring. Peripheral Pulses: Yes pulses 2+ throughout Skin Wound Narrative: Left posterior leg skin flap with some scabbing/compromise, especially on the most proximal portion of the flap. Angry erythema present. Hypersensitivity to touch. Neuro oriented x3 Psych thought process normal, cooperative and affect normal Appearance: grossly normal Activity / Motor Behavior: appropriate eye contact Speech: normal speech Debridement Note Debridement Note No debridement was completed: No debridement was completed today Post-Debridement Measurements and Additional Note: Post-Debridement Measurements/Treatment WC - Nurse 1 - General Ulcer Assessment Start: 01/13/24 13:57 Freq: Status: Active Protocol: TOMASZ Activity Type Activity Date Activity User E-sign Co-sign Detail Recorded Client Recorded Date Recorded By Document 01/13/24 13:57 BMF [email or web address] 01/13/24 14:07 BMF Document 01/20/24 14:24 KW l 01/20/24 14:33 KW 01/13/24 01/20/24 13:57 14:24 WC - Today's Visit Information Type of service Initial Visit Follow-up Visit (Physician/[employer] ) Arrival Mode Ambulatory Ambulatory Transfer Assistance None Accompanied by daughter Patient Identification Verified (Name & Yes Yes ) Patient Requires Transmission-Based No Precautions Height and Weight Height 5 ft 3 in Weight 160 lb Weight in Pounds 160.0 lbs Weight Measurement Method Stated by Patient Body Mass Index (BMI) 28.3 28.3 BMI Classification Overweight Overweight BSA - Laura 1.76 Vital Signs Temperature (97.8 F-99.1 F) 97.4 F L 97.3 F L Temperature Source Temporal Temporal Pulse Rate (60-100) 82 91 Pulse Location Monitor Monitor Respiratory Rate (12-18) 16 16 Respiratory rate source Observation Observation Oxygen Delivery Method Room Air Room Air Blood Pressure (90/60-120/80) 115/77 100/72 Blood Pressure Mean (mm Hg) 89 81 Source Monitor Monitor Position Sitting Sitting Blood Pressure Location Left Arm Right Arm History Since Last Visit- (Skip if this is Patient's initial visit) Have you changed medications since your No last visit? Any new allergies or adverse reactions No Had a fall/change in ADL's that may No increase risk of falls Signs or symptoms of abuse and/or No neglect since last visit Have you been in the hospital since your No last visit? Has dressing in place as prescribed Yes Has compression in place as prescribed Yes Has offloadiing in place as prescribed N/A Experienced any changes in pain level or No management Left Footwear Regular Shoe Regular Shoe Right Footwear Regular Shoe Regular Shoe Pain Scale: 0-10 Numeric Is Patient Pain Free? Yes No LEFT le -Intensity 8 -Alleviating Factors/Interventions Medication Communication Assessment Preferred language Bulgarian Bottling Supervisor Required No Able to Read Yes Able to Write Yes Communication Tools None Right Hearing Abillity Normal Left Hearing Abillity Normal Teaching Assessment Preferences Verbal,Written, Audio/Visual, Demonstration Barriers to Learning None Readiness To Learn Excellent Willingness to Engage in Self Management High Activies Readiness to Engage in Self Management High Activities Anxiety Level Calm Cooperation Cooperative Perception Coherent Interest in Health Problem Asks Questions Education Importance Acknowledges Need Does Patient Smoke tobacco or other No substances Smoking Status Never smoker Is Patient Diabetic No Functional Assessment Recent Decline in Ability to Perform Ambulation 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 Cultural/Yarsani Needs that may affect No Treatment Plan - Nurse 1 - General Ulcer Measurement Start: 01/13/24 13:57 Freq: Status: Active Protocol: Activity Type Activity Date Activity User E-sign Co-sign Detail Recorded Client Recorded Date Recorded By Document 01/13/24 13:57 [facility] [email or web address] 01/13/24 14:07 BM Document 01/20/24 14:24 KW l 01/20/24 14:33 KW 01/13/24 01/20/24 13:57 14:24 Wound Center Nurse 1 #3- L LOWER CALF POST OP -Combined with other wound No -Current Size (cm) - Length 0.1 -Current Size (cm) - Width 0.1 -Current Size (cm) - Depth 0.1 -Total Square Cm 0.01 -Date of Last Picture (Recall this 01/13/24 01/20/24 field) -Photo Taken Yes -Tunneling No -Undermining/Tunneling No -Circular Undermining No -Exudate Amt Medium Small -Exudate Type Serosanguineous Serosanguineous -Wound Margin Distinct, Outline Attached -Texture (Nilsa-wound Skin Appearance) Assessed, Assessed, Scarring Localized Edema -Moisture (Nilsa-wound Skin Appearance) Assessed Assessed -Color (Nilsa-wound Skin Appearance) Assessed, Assessed, Erythema Erythema -Temperature (Nilsa-wound Skin No Abnormality No Abnormality Appearance) (Pt Warm) (Pt Warm) -Tenderness on Palpation (Nilsa-wound Yes No Skin Appearance) -Ulcer Cleansing Rinsed/ Soap and Water Irrigated with Saline -Foul Odor after Cleansing No No -Anesthetic Used 5% Lidocaine 5% Lidocaine Gel Gel -Wound Comment(s) SUTURES INTACT INCISION IS POST OP INTACT Lower Limb Edema Present Yes Left Calf (cm) 36 Left Ankle (cm) 20.7 - Nurse 2 - General Ulcer CM Notes Start: 01/13/24 13:57 Freq: Status: Active Protocol: Activity Type Activity Date Activity User E-sign Co-sign Detail Recorded Client Recorded Date Recorded By Document 01/13/24 14:26 BMF [email or web address] 01/13/24 14:36 BM Document 01/20/24 15:02 [facility] [email or web address] 01/20/24 15:18 BMF 01/13/24 01/20/24 14:26 15:02 Wound Center Nurse 2 #3- L LOWER CALF POST OP -Time 14:33 -Post Debridement (cm) - Length 0.1 6.2 -Post Debridement (cm) - Width 0.1 4.6 -Post Debridement (cm) - Depth 0.1 0.1 -Total Square (Post) (cm) 0.01 28.52 -Area of Debridement (cm) - Length 0.1 6.2 -Area of Debridement (cm) - Width 0.1 4.6 -Total Square (Area) (cm) 0.01 28.52 -Tunneling No -Undermining/Tunneling No -Circular Undermining No -Wound/Ulcer Outcome Not Healed Not Healed -Bleeding Controlled with NA NA -Wound Comment(s) SUTURES REMOVED IN CLINIC Pain Scale: 0-10 Numeric Is Patient Pain Free? Yes Yes - Nurse 3 - General Ulcer D/C NN Start: 01/13/24 13:57 Freq: Status: Active Protocol: Activity Type Activity Date Activity User E-sign Co-sign Detail Recorded Client Recorded Date Recorded By Document 01/13/24 14:51 DL [email or web address] 01/13/24 14:52 DL 01/13/24 14:51 Wound Care Center Nurse 3 #3- L LOWER CALF POST OP -Ulcer Cleansing Not Cleansed -Foul Odor after Cleansing No -Primary Dressing Applied C Hydrogel ($) -Primary Dressing Covered/Secured with Dry Gauze & Roll Gauze, Secured with Tape -Other Covering tom Left -Compression Wrap Tom Wrap Treatment Response Procedure Tolerated Well Pain Scale: 0-10 Numeric Is Patient Pain Free? 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 - Factory as the place of occurrence of the external cause (5) Crushing injury of left lower leg, initial encounter: CODE(S): S87.82XA - Crushing injury of left lower leg, initial encounter (6) History of evacuation of hematoma: CODE(S): Z98.890 - Other specified postprocedural states (7) Painful scar: CODE(S): R52 - Pain, unspecified; L90.5 - Scar conditions and fibrosis of skin (8) Adherent scar: CODE(S): L90.5 - Scar conditions and fibrosis of skin (9) Partial necrosis of skin flap: CODE(S): T86.821 - Skin graft (allograft) (autograft) failure; I96 - Gangrene, not elsewhere classified (10) Complex regional pain syndrome type 1 of lower extremity: CODE(S): G90.529 - Complex regional pain syndrome I of unspecified lower limb QUALIFIERS: Laterality: left Qualified Code(s): G90.522 - Complex regional pain syndrome I of left lower limb PLAN: Plan Patient evaluated at the wound healing center today. She has 10% compromise of her skin flap on her left distal posterior leg. She would benefit from HBO therapy. She has been approved for by [facility] to be evaluated at the wound healing center for a consultation for HBOT. She also has been approved for up to 30 treatments for HBOT, if necessary. I do feel that the HBOT would be beneficial to help with the compromised skin flap. She will need a chest xray and and EKG before starting HBO therapy. I will apply to [facility] for these. She would also benefit from from some physical therapy to help with evaluation, treatment for range of motion, strengthening and pain management. I'm concerned the increased pain she is experiencing could be related to her Complex Regional pain syndrome that was caused by the injury that she obtained. It was a crush injury and although initially it appeared that only soft tissue involvement was the only issue, as she has healed over these past couple years, her pain continues to be an issue in this area. Hopefully HBOT may help with this also, in addition to physical therapy. IF these conservative measures do not improve her pain, then she may need to be treated with a calcium channel blanco, Elavil and possibly referred to pain management. Wound care - Collagen hydrogel covered with gauze. Compression - TOM wrap. Keep left leg elevated as much as possible to help reduce swelling. Waiting for approval from [facility] for EKG and Chest xray as prerequisite for HBO therapy. She is to continue the Gabapentin for her burning pain. She may also try tylenol or ibuprofen as directed on labels. She states that she does not take the Gabapentin often due to how tired it makes her. For the angry erythema, will restart her on Cefadroxil BID. Follow up one week.
[2024-01-27 13:32] VITALS: BP 115/84; PULSE 84; RESP 16; TEMP 35.5; BMI 28.3
--- NOTE | 2024-01-27 15:30 | PCM.WC.PN ---
History of Present Illness Date of Service: 01/27/24 Chief Complaint: Left distal posterior traumatic hematoma/ulcer History of Wound: 53 year old female presents to the wound healing center for evaluation of her left distal posterior leg skin flap that has some compromise after her surgery on 12/17/23 for painful scar contour deformity. She initially has some bruising on the top corner of the flap. The compromise is now about 10% on the edge of the flap. She has been placing antibiotic ointment to the incision line and covering with gauze and wearing an TOM wrap for compression. She has been encouraged to keep her foot elevated as much as possible. In November when the compromised flap was first evaluated, I spoke with her surgeon, Dr. Patel who recommended her being evaluated for the possibility of HBO therapy. Applied to [employer] for her to be seen and evaluated at the wound healing center. With the compromise on the edge of the flap, she would benefit from Hyperbaric Oxygen therapy to help with the healing of this skin flap. Surgery 12/17/23 -1. Surgical preparation left posterior leg with excisional debridement painful post-traumatic scar contour deformity. 2. Reconstruction with fasciocutaneous bilobed transposition skin flap (26 cm2) and placement Arthroflex decellularized dermis graft (6 cm2). The initially injury occurred while working at [employer] on 05/31/22. She developed a hematoma with overlying skin necrosis. She went to surgery on 07/05/22 where she underwent surgical preparation left posterior leg with incision and drainage and evacuation and excisional debridement traumatic hematoma abscess with overlying skin necrosis (18 cm2). Postoperatively she had aggressive wound care (VAC, Dakin's, and Silver dressings) at the Wound Center along with antibiotics when needed until the ulcer healed. She has residual pain in the back of her leg where the scar is. She also has persistent paresthesias on the side of her foot and on the plantar surface of her foot. The scar contour deformity has adhered to the underlying tendon, so whenever she moves her left leg, the scar tissue pulls on the tendon causing pain. At the time of surgery, the hematoma extended to the Achilles tendon. 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 She denies any other medical history. Surgery 07/05/22 - Surgical preparation left posterior leg with incision and drainage and evacuation and excisional debridement traumatic hematoma abscess with overlying skin necrosis (18 cm2). Today she denies any nausea, vomiting or diarrhea. Progress of Wound: Left posterior distal leg skin flap is intact but there is scabbing along the edge of the flap. The most proximal portion of the flap is where the compromise is most severe. There are also small areas of delayed healing on the most distal portion of the flap. The erythema is slightly less angry today along the incision, she was started last week on Cefadroxil. She continues to have significant hypersensitivity to the point that she does not allow it to be touched. She describes the pain as burning/tingling with numbness that is distal to the flap. The numbness is nothing new, she has been experiencing this since her initial injury. She walks with a limp. She states that the Gabapentin 100 mg during the day has started to help with the burning pain that she has been experiencing. She take Gabapentin 100 mg during the day and 300 mg at night. Objective Data Objective Data Vital Signs: Vital Signs Temp Pulse Resp BP O2 Del Method 96 F L 84 16 115/84 H Room Air 01/27/24 13:32 01/27/24 13:32 01/27/24 13:32 01/27/24 13:32 01/27/24 13:32 Oxygen Delivery Method Room Air Weight: 160 lb Body Mass Index (BMI) 28.3 Charges/Coding Procedures Integumentary 111xxx-113xx: [id number] Global Visit Debridement Note Debridement Note No debridement was completed: No debridement was completed today Post-Debridement Measurements and Additional Note: Post-Debridement Measurements/Treatment - Nurse 1 - General Ulcer Assessment Start: 01/13/24 13:57 Freq: Status: Active Protocol: .FELICITASEXT Activity Type Activity Date Activity User E-sign Co-sign Detail Recorded Client Recorded Date Recorded By Document 01/13/24 13:57 BMF 10.10.25.7 01/13/24 14:07 BMF Document 01/20/24 14:24 KW l 01/20/24 14:33 KW Document 01/27/24 13:32 BM 10..25.7 01/27/24 13:37 BMF 01/13/24 01/20/24 01/27/24 13:57 14:24 13:32 - Today's Visit Information Type of service Initial Visit Follow-up Visit Follow-up Visit (Physician/WEIGHTS AND MEASURES SEALER (Physician/WEIGHTS AND MEASURES SEALER ) ) Arrival Mode Ambulatory Ambulatory Ambulatory Transfer Assistance None None Accompanied by daughter Patient Identification Verified (Name & Yes Yes Yes ) Patient Requires Transmission-Based No No Precautions Height and Weight Height 5 ft 3 in Weight 160 lb Weight in Pounds 160.0 lbs Weight Measurement Method Stated by Patient Body Mass Index (BMI) 28.3 28.3 28.3 BMI Classification Overweight Overweight Overweight BSA - Laura 1.76 Vital Signs Temperature (97.8 F-99.1 F) 97.4 F L 97.3 F L 96 F L Temperature Source Temporal Temporal Temporal Pulse Rate (60-100) 82 91 84 Pulse Location Monitor Monitor Monitor Respiratory Rate (12-18) 16 16 16 Respiratory rate source Observation Observation Observation Oxygen Delivery Method Room Air Room Air Room Air Blood Pressure (90/60-120/80) 115/77 100/72 115/84 H Blood Pressure Mean (mm Hg) 89 81 94 Source Monitor Monitor Monitor Position Sitting Sitting Sitting Blood Pressure Location Left Arm Right Arm Left Arm History Since Last Visit- (Skip if this is Patient's initial visit) Have you changed medications since your No No last visit? Any new allergies or adverse reactions No No Had a fall/change in ADL's that may No No increase risk of falls Signs or symptoms of abuse and/or No No neglect since last visit Have you been in the hospital since your No No last visit? Has dressing in place as prescribed Yes Yes Has compression in place as prescribed Yes Yes Has offloadiing in place as prescribed N/A N/A Experienced any changes in pain level or No No management Left Footwear Regular Shoe Regular Shoe Regular Shoe Right Footwear Regular Shoe Regular Shoe Regular Shoe Pain Scale: 0-10 Numeric Is Patient Pain Free? 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 Required No Able to Read Yes Able to Write Yes Communication Tools None Right Hearing Abillity Normal Left Hearing Abillity Normal Teaching Assessment Preferences Verbal,Written, Audio/Visual, Demonstration Barriers to Learning None Readiness To Learn Excellent Willingness to Engage in Self Management High Activies Readiness to Engage in Self Management High Activities Anxiety Level Calm Cooperation Cooperative Perception Coherent Interest in Health Problem Asks Questions Education Importance Acknowledges Need Does Patient Smoke tobacco or other No substances Smoking Status Never smoker Is Patient Diabetic No Functional Assessment Recent Decline in Ability to Perform 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 Needs that may affect No Treatment Plan WC - Nurse 1 - General Ulcer Measurement Start: 01/13/24 13:57 Freq: Status: Active Protocol: Activity Type Activity Date Activity User E-sign Co-sign Detail Recorded Client Recorded Date Recorded By Document 01/13/24 13:57 BMF 10.10.25.7 01/13/24 14:07 BMF Document 01/20/24 14:24 KW l 01/20/24 14:33 KW Document 01/27/24 13:32 BMF 10.10.25.7 01/27/24 13:37 BMF 01/13/24 01/20/24 01/27/24 13:57 14:24 13:32 Wound Center Nurse 1 #3- L LOWER CALF POST OP -Combined with other wound No No -Current Size (cm) - Length 0.1 4.6 -Current Size (cm) - Width 0.1 2.4 -Current Size (cm) - Depth 0.1 0.2 -Total Square Cm 0.01 11.04 -Date of Last Picture (Recall this 01/13/24 01/20/24 01/27/24 field) -Photo Taken Yes Yes -Epithelialization Small 1-33% -Tunneling No No -Undermining/Tunneling No No -Circular Undermining No No -Exudate Amt Medium Small Medium -Exudate Type Serosanguineous Serosanguineous Serosanguineous -Wound Margin Distinct, Distinct, Outline Outline Attached Attached -Granulation Amt Small (1-33%) -Granulation Quality Red -Slough/Fibrin Yes -Necrosis Amt Large (67-100%) -Necrotic Tissue Type Eschar -Texture (Nilsa-wound Skin Appearance) Assessed, Assessed, Assessed, Scarring Localized Edema Scarring -Moisture (Nilsa-wound Skin Appearance) Assessed Assessed Assessed -Color (Nilsa-wound Skin Appearance) Assessed, Assessed, Assessed Erythema Erythema -Temperature (Nilsa-wound Skin No Abnormality No Abnormality No Abnormality Appearance) (Pt Warm) (Pt Warm) (Pt Warm) -Tenderness on Palpation (Nilsa-wound Yes No No Skin Appearance) -Ulcer Cleansing Rinsed/ Soap and Water Rinsed/ Irrigated with Irrigated with Saline Saline -Foul Odor after Cleansing No No No -Anesthetic Used 5% Lidocaine 5% Lidocaine 5% Lidocaine Gel Gel Gel -Wound Comment(s) SUTURES INTACT INCISION IS POST OP INTACT Lower Limb Edema Present Yes Left Calf (cm) 36 Left Ankle (cm) 20.7 WC - Nurse 2 - General Ulcer CM Notes Start: 01/13/24 13:57 Freq: Status: Active Protocol: Activity Type Activity Date Activity User E-sign Co-sign Detail Recorded Client Recorded Date Recorded By Document 01/13/24 14:26 BMF 10.10.25.7 01/13/24 14:36 BMF Document 01/20/24 15:02 BMF 10.10.25.7 01/20/24 15:18 BMF Document 01/27/24 13:44 BMF 10.10.25.7 01/27/24 13:49 BMF 01/13/24 01/20/24 01/27/24 14:26 15:02 13:44 Wound Center Nurse 2 #3- L LOWER CALF POST OP -Time 14:33 -Post Debridement (cm) - Length 0.1 6.2 4.6 -Post Debridement (cm) - Width 0.1 4.6 2.4 -Post Debridement (cm) - Depth 0.1 0.1 0.2 -Total Square (Post) (cm) 0.01 28.52 11.04 -Area of Debridement (cm) - Length 0.1 6.2 4.6 -Area of Debridement (cm) - Width 0.1 4.6 2.4 -Total Square (Area) (cm) 0.01 28.52 11.04 -Tunneling No No -Undermining/Tunneling No No -Circular Undermining No No -Wound/Ulcer Outcome Not Healed Not Healed Not Healed -Bleeding Controlled with NA NA NA -Wound Comment(s) SUTURES REMOVED IN CLINIC Pain Scale: 0-10 Numeric Is Patient Pain Free? Yes Yes Yes WC - Nurse 3 - General Ulcer D/C NN Start: 01/13/24 13:57 Freq: Status: Active Protocol: Activity Type Activity Date Activity User E-sign Co-sign Detail Recorded Client Recorded Date Recorded By Document 01/13/24 14:51 DL 10..25.7 01/13/24 14:52 DL Document 01/20/24 15:26 KW l 01/20/24 15:26 KW Document 01/27/24 13:54 [facility] 10.10.25.7 01/27/24 13:55 BMF 01/13/24 01/20/24 01/27/24 14:51 15:26 13:54 Wound Care Center Nurse 3 #3- L LOWER CALF POST OP -Ulcer Cleansing Not Cleansed -Foul Odor after Cleansing No -Primary Dressing Applied C Hydrogel ($) C Hydrogel ($) C Hydrogel ($), NonAdherent Contact Layer -Primary Dressing Covered/Secured with Dry Gauze & Dry Gauze & Dry Gauze Roll Gauze, Roll Gauze, Secured with Secured with Tape Tape -Other Covering tom Left -Compression Wrap Tom Wrap Tom Wrap Tom Wrap Treatment Response Procedure Tolerated Well Pain Scale: 0-10 Numeric Is Patient Pain Free? 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 - Factory as the place of occurrence of the external cause (5) Crushing injury of left lower leg, initial encounter: CODE(S): S87.82XA - Crushing injury of left lower leg, initial encounter (6) History of evacuation of hematoma: CODE(S): Z98.890 - Other specified postprocedural states (7) Painful scar: CODE(S): R52 - Pain, unspecified; L90.5 - Scar conditions and fibrosis of skin (8) Adherent scar: CODE(S): L90.5 - Scar conditions and fibrosis of skin (9) Partial necrosis of skin flap: CODE(S): T86.821 - Skin graft (allograft) (autograft) failure; I96 - Gangrene, not elsewhere classified (10) Complex regional pain syndrome type 1 of lower extremity: CODE(S): G90.529 - Complex regional pain syndrome I of unspecified lower limb QUALIFIERS: Laterality: left Qualified Code(s): G90.522 - Complex regional pain syndrome I of left lower limb PLAN: Plan Patient evaluated at the wound healing center today. She has 10% compromise of her skin flap on her left distal posterior leg. She would benefit from HBO therapy. She has been approved for by [facility] to be evaluated at the wound healing center for a consultation for HBOT. She also has been approved for up to 30 treatments for HBOT, if necessary. I do feel that the HBOT would be beneficial to help with the compromised skin flap. She will need a chest xray and and EKG before starting HBO therapy. I will apply to [facility] for these. She would also benefit from from some physical therapy to help with evaluation, treatment for range of motion, strengthening and pain management. With the amount of pain and inflammation she is experiencing in her left posterior leg she may be developing CRPS (Complex Regional Pain Syndrome). CRPS typically occurs after an injury or trauma. NSAID's may help with the pain associated with inflammation. Antidepressants at night to help her sleep can be helpful.? She is currently on Fluoxetine but that may need to be changed to something such as Amitriptyline or Cymbalta. Deprivation in sleep can increase the pain cycle, so her being able to have quality sleep, should help decrease her painful symptoms. To help with pain that could be due to spasm, I offered to start her on Procardia XL daily. She would need to take her blood pressure first and only take the medications if her SBP is greater than 110 mmHg. She is hesitant to start more medications. For the nerve pain she is experiencing, she is currently on Neurontin. It makes her sleepy, so she is hesitant to take it during the day (Started her on Gabapentin 100mg during the day and 300 mg at night, which she is tolerating well). Psychological and Behavioral Therapy may be useful as well for treating this condition. Alternative therapies in Pain Management can be useful as well. That is why I would like to her evaluated by pain management because she has disproportionate pain postoperatively, in addition to her pain never completely resolved from her initial injury. This would be better managed by someone who that is their specialty. Wound care - Collagen hydrogel topped with adaptic, covered with gauze daily. Wash with soap and water at the time of the dressing changes. Compression - TOM wrap. Keep left leg elevated as much as possible to help reduce swelling. Waiting for approval from [facility] for EKG and Chest xray as prerequisite for HBO therapy. She is to continue the Gabapentin for her burning pain. She may also try tylenol or ibuprofen as directed on labels. She states that she does not take the Gabapentin often due to how tired it makes her. Continue Cefadroxil BID. Follow up one week.
--- NOTE | 2024-01-29 10:00 | WC ---
PHOTO 01/20/24 LEFT POST LE
--- NOTE | 2024-01-31 08:37 | WC ---
PHOTO 01/27/24 LEFT LOWER CALF
--- NOTE | 2024-02-03 09:40 | WC ---
PHOTO 01/27/24 EVELINA
== END 2024-01-29 23:59 | disposition home or self-care (01) ==
LOC: WC 13:00
PROVIDERS: PCP Student in an Organized Health Care Education/Training Program; Referring Provider Nurse Practitioner Family; Visit Provider Nurse Practitioner Family
DX: T86.821 Skin graft (allograft) (autograft) failure (principal); I96 Gangrene, not elsewhere classified; S80.812A Abrasion, left lower leg, initial encounter; L02.416 Cutaneous abscess of left lower limb; K86.89 Other specified diseases of pancreas; Y92.63 Factory as the place of occurrence of the external cause; S87.82XA Crushing injury of left lower leg, initial encounter; L90.5 Scar conditions and fibrosis of skin; G90.522 Complex regional pain syndrome I of left lower limb; Y83.2 Surgical operation with anastomosis, bypass or graft as the cause of abnormal reaction of the patient, or of later complication, without mention of misadventure at the time of the procedure
CPT/HCPCS: 99213; 99214; G0463

== ENCOUNTER 2024-02-28 09:00 | Outpatient (RCR) | payer OTHER, SELFPAY ==
[2024-01-30 00:31] VITALS: BP 115/84; PULSE 84; RESP 16; TEMP 35.5; BMI 28.3
[2024-02-03 14:29] VITALS: BP 130/79; PULSE 86; RESP 18; TEMP 36.4; BMI 28.3
--- NOTE | 2024-02-03 16:49 | PN.PCM_ITS ---
History of Present Illness Date of Service: 02/03/24 Chief Complaint: Left distal posterior traumatic hematoma/ulcer History of Wound: 53 year old female presents to the wound healing center for evaluation of her left distal posterior leg skin flap that has some compromise after her surgery on 12/17/23 for painful scar contour deformity. She initially has some bruising on the top corner of the flap. The compromise is now about 10% on the edge of the flap. She has been placing antibiotic ointment to the incision line and covering with gauze and wearing an JUAN JOSE wrap for compression. She has been encouraged to keep her foot elevated as much as possible. In November when the compromised flap was first evaluated, I spoke with her surgeon, Dr. Patel who recommended her being evaluated for the possibility of HBO therapy. Applied to worklodi's comp for her to be seen and evaluated at the wound healing center. With the compromise on the edge of the flap, she would benefit from Hyperbaric Oxygen therapy to help with the healing of this skin flap. Surgery 12/17/23 -1. Surgical preparation left posterior leg with excisional debridement painful post-traumatic scar contour deformity. 2. Reconstruction with fasciocutaneous bilobed transposition skin flap (26 cm2) and placement Arthroflex decellularized dermis graft (6 cm2). The initially injury occurred while working at [employer] on 05/31/22. She developed a hematoma with overlying skin necrosis. She went to surgery on 07/05/22 where she underwent surgical preparation left posterior leg with incision and drainage and evacuation and excisional debridement traumatic hematoma abscess with overlying skin necrosis (18 cm2). Postoperatively she had aggressive wound care (VAC, Dakin's, and Silver dressings) at the Wound Center along with antibiotics when needed until the ulcer healed. She has residual pain in the back of her leg where the scar is. She also has persistent paresthesias on the side of her foot and on the plantar surface of her foot. The scar contour deformity has adhered to the underlying tendon, so whenever she moves her left leg, the scar tissue pulls on the tendon causing pain. At the time of surgery, the hematoma extended to the Achilles tendon. 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 She denies any other medical history. Surgery 07/05/22 - Surgical preparation left posterior leg with incision and drainage and evacuation and excisional debridement traumatic hematoma abscess with overlying skin necrosis (18 cm2). Today she denies any nausea, vomiting or diarrhea. Progress of Wound: Left posterior distal leg skin flap is intact but there are a few areas of scabbing. The most proximal portion of the flap is where the compromise is most severe. There are also small areas of delayed healing on the most distal portion of the flap. The erythema has resolved. She continues to have significant hypersensitivity to the point that she does not allow it to be touch ed. The burning pain has improved with her taking Gabapentin 100 mg during the day and 300 mg at night. Objective Data Objective Data Vital Signs: Vital Signs Temp Pulse Resp BP 97.5 F L 86 18 130/79 H 02/03/24 14:29 02/03/24 14:29 02/03/24 14:29 02/03/24 14:29 Weight: 160 lb Body Mass Index (BMI) 28.3 Charges/Coding Procedures Integumentary [id number]: [id number] Global Visit Debridement Note Debridement Note Wound debrided: posterior distal leg incision, cluster Laterality: Left Type of Debridement: Excisional debridement Anesthesia Used: 5% Lidocaine Gel Depth: Down to and including healthy tissue Percentage of wound debrided: 100 Instrument Used: 3mm curette Tissue Removed: Non viable tissue/slough/scabbing Severity: Fat Layer Exposed Amount of bleeding with debridement: None Bleeding Controlled with: Pressure Patient tolerated procedure: Patient tolerated procedure well Post-Debridement Measurements and Additional Note: Post-Debridement Measurements/Treatment - Nurse 1 - General Ulcer Assessment Start: 02/03/24 14:11 Freq: Status: Active Protocol: TOMASZ Activity Type Activity Date Activity User E-sign Co-sign Detail Recorded Client Recorded Date Recorded By Document 02/03/24 14:29 DL [email or web address] 02/03/24 14:33 DL 02/03/24 14:29 - Today's Visit Information Type of service Follow-up Visit (Physician/SCHOOL CLERK ) Arrival Mode Ambulatory Transfer Assistance None Patient Identification Verified (Name & Yes ) Patient Requires Transmission-Based No Precautions Height and Weight Body Mass Index (BMI) 28.3 BMI Classification Overweight Vital Signs Temperature (97.8 F-99.1 F) 97.5 F L Temperature Source Temporal Pulse Rate (60-100) 86 Pulse Location Monitor Respiratory Rate (12-18) 18 Respiratory rate source Observation Blood Pressure (90/60-120/80) 130/79 H Blood Pressure Mean (mm Hg) 96 Source Monitor History Since Last Visit- (Skip if this is Patient's initial visit) Have you changed medications since your No last visit? Any new allergies or adverse reactions No Had a fall/change in ADL's that may No increase risk of falls Signs or symptoms of abuse and/or No neglect since last visit Have you been in the hospital since your No last visit? Has dressing in place as prescribed Yes Has compression in place as prescribed Yes Has offloadiing in place as prescribed N/A Experienced any changes in pain level or No management Pain Scale: 0-10 Numeric Is Patient Pain Free? Yes WC - Nurse 1 - General Ulcer Measurement Start: 02/03/24 14:11 Freq: Status: Active Protocol: Activity Type Activity Date Activity User E-sign Co-sign Detail Recorded Client Recorded Date Recorded By Document 02/03/24 14:29 DL [email or web address] 02/03/24 14:33 DL 02/03/24 14:29 Wound Center Nurse 1 #3- L LOWER CALF POST OP -Current Size (cm) - Length 4 -Current Size (cm) - Width 1.3 -Current Size (cm) - Depth 0.1 -Total Square Cm 5.2 -Photo Taken Yes -Exudate Amt Small -Exudate Type Serosanguineous -Wound Margin Distinct, Outline Attached -Granulation Amt Small (1-33%) -Granulation [place] -Necrosis Amt Small (1-33%) -Necrotic Tissue Type Adherent Slough -Structure Exposed N/A -Texture (Nilsa-wound Skin Appearance) Scarring -Moisture (Nilsa-wound Skin Appearance) No Abnormality -Color (Nilsa-wound Skin Appearance) No Abnormality -Temperature (Nilsa-wound Skin No Abnormality Appearance) (Pt Warm) -Tenderness on Palpation (Nilsa-wound No Skin Appearance) -Ulcer Cleansing Soap and Water -Foul Odor after Cleansing No -Anesthetic Used 5% Lidocaine Gel TONI - Nurse 2 - General Ulcer CM Notes Start: 02/03/24 14:11 Freq: Status: Active Protocol: Activity Type Activity Date Activity User E-sign Co-sign Detail Recorded Client Recorded Date Recorded By Document 02/03/24 14:37 DL [email or web address] 02/03/24 14:46 DL 02/03/24 14:37 Wound Center Nurse 2 -Correct Patient Yes -Correct Side, Site, Position Yes -Correct Procedure Yes -Procedure Performed Yes -Type of Procedure Debridement -Clinical Debridement Subcutaneous -Tissue Removed Subcutaneous -Post Debridement (cm) - Length 5.5 -Post Debridement (cm) - Width 3 -Post Debridement (cm) - Depth 0.1 -Total Square (Post) (cm) 16.5 -Wound/Ulcer Outcome Not Healed -Ulcer Cleansing Rinsed/ Irrigated with Saline -Foul Odor after Cleansing No -Bleeding Controlled with NA -Treatment Response Procedure Tolerated Well -Offloading No -Debridement - Subq, 1st 20sq cm Yes Pain Scale: 0-10 Numeric Is Patient Pain Free? Yes - Nurse 3 - General Ulcer D/C NN Start: 02/03/24 14:11 Freq: Status: Active Protocol: Activity Type Activity Date Activity User E-sign Co-sign Detail Recorded Client Recorded Date Recorded By Document 02/03/24 14:46 DL 10..25.7 02/03/24 14:47 DL Edit Result 02/03/24 14:46 DL (1) [email or web address] 02/03/24 14:56 DL (1) #3- L LOWER CALF POST OP - Ulcer Cleansing => Rinsed/Irrigated => with Saline - Foul Odor after Cleansing => No - Primary Dressing Applied => NonAdherent => Contact Layer - Other Dressing => hydrogel - Primary Dressing Covered/Secured with => Dry Gauze & Roll => Gauze,Secured with => Tape - Other Covering => JUAN JOSE Treatment Response => Procedure => Tolerated Well Discharge Condition => Stable Ambulatory Status => Ambulatory Transportation => Private Auto 02/03/24 14:46 Wound Care Center Nurse 3 #3- L LOWER CALF POST OP -Ulcer Cleansing Rinsed/ Irrigated with Saline -Foul Odor after Cleansing No -Primary Dressing Applied NonAdherent Contact Layer -Other Dressing hydrogel -Primary Dressing Covered/Secured with Dry Gauze & Roll Gauze, Secured with Tape -Other Covering JUAN JOSE Treatment Response Procedure Tolerated Well Pain Scale: 0-10 Numeric Is Patient Pain Free? 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 - Factory as the place of occurrence of the external cause (5) Crushing injury of left lower leg, initial encounter: CODE(S): S87.82XA - Crushing injury of left lower leg, initial encounter (6) History of evacuation of hematoma: CODE(S): Z98.890 - Other specified postprocedural states (7) Painful scar: CODE(S): R52 - Pain, unspecified; L90.5 - Scar conditions and fibrosis of skin (8) Adherent scar: CODE(S): L90.5 - Scar conditions and fibrosis of skin (9) Partial necrosis of skin flap: CODE(S): T86.821 - Skin graft (allograft) (autograft) failure; I96 - Gangrene, not elsewhere classified (10) Complex regional pain syndrome type 1 of lower extremity: CODE(S): G90.529 - Complex regional pain syndrome I of unspecified lower limb QUALIFIERS: Laterality: left Qualified Code(s): G90.522 - Complex regional pain syndrome I of left lower limb PLAN: Plan Patient evaluated at the wound healing center today. She has 10% compromise of her skin flap on her left distal posterior leg. She would benefit from HBO therapy. She has been approved for by [facility] to be evaluated at the wound healing center for a consultation for HBOT. She also has been approved for up to 30 treatments for HBOT, if necessary. I do feel that the HBOT would be beneficial to help with the compromised skin flap. She will need a chest xray and and EKG before starting HBO therapy. I applied to [facility] for these and am waiting for approval. She would also benefit from from some physical therapy to help with evaluation, treatment for range of motion, strengthening and pain management. With the amount of pain and inflammation she is experiencing in her left posterior leg she may be developing CRPS (Complex Regional Pain Syndrome). CRPS typically occurs after an injury or trauma. NSAID's may help with the pain associated with inflammation. Antidepressants at night to help her sleep can be helpful.? She is currently on Fluoxetine but that may need to be changed to something such as Amitriptyline or Cymbalta. Deprivation in sleep can increase the pain cycle, so her being able to have quality sleep, should help decrease her painful symptoms. To help with pain that could be due to spasm, I offered to start her on Procardia XL daily. She would need to take her blood pressure first and only take the medications if her SBP is greater than 110 mmHg. She is hesitant to start more medications. For the nerve pain she is experiencing, she is currently on Neurontin. It makes her sleepy, so she is hesitant to take it during the day (Started her on Gabapentin 100mg during the day and 300 mg at night, which she is tolerating well). Psychological and Behavioral Therapy may be useful as well for treating this condition. Alternative therapies in Pain Management can be useful as well. That is why I would like to her evaluated by pain management because she has disproportionate pain postoperatively, in addition to her pain never completely resolved from her initial injury. This would be better managed by someone who that is their specialty. Wound care - Collagen hydrogel topped with adaptic, covered with gauze daily. Wash with soap and water at the time of the dressing changes. Compression - JUAN JOSE wrap. Keep left leg elevated as much as possible to help reduce swelling. Waiting for approval from [facility] for EKG and Chest xray as prerequisite for HBO therapy. She is to continue the Gabapentin for her burning pain. She may also try tylenol or ibuprofen as directed on labels. She states that she does not take the Gabapentin often due to how tired it makes her. Follow up one week.
--- NOTE | 2024-02-06 12:05 | RAD_ITS ---
STUDY: X-RAY CHEST REASON FOR EXAM: Female, 53 years old. Hyperbaric oxygen therapy clearance. TECHNIQUE: Frontal and lateral views of the chest. COMPARISON: None. FINDINGS: The lungs are clear and expanded. There is no demonstrated pleural abnormality. Normal size heart. Normal mediastinum and froy. Normal visualized pulmonary arteries. Normal visualized aortic arch and descending thoracic aorta. Diffuse mild thoracic spondylosis. Normal visualized ribs, clavicles, and shoulders. No abnormality of the visualized soft tissue structures of the upper abdomen. RAD/Chest PA and Lateral IMPRESSION: No active or acute cardiopulmonary disease. Electronically Signed: David Robles MD at 15:53 EDT ,
--- NOTE | 2024-02-06 12:06 | EKG12_ITS ---
Test Reason : PRE HYPERBARIC Blood Pressure : / mmHG Vent. Rate : 072 BPM Atrial Rate : 072 BPM P-R Int : 104 ms QRS Dur : 098 ms QT Int : 384 ms P-R-T Axes : 065 074 069 degrees QTc Int : 420 ms Sinus rhythm with short NH Otherwise normal ECG Confirmed by ELROY MARQUEZ, HUGH ([id number]), offline editor CASSIA CHAVES ([id number]) on 02/10/2024 8:34:27 AM Referred By: Lynsey Johnson Confirmed By:SHAWANDA ABBASI MD
[2024-02-18 09:38] VITALS: BP 120/78; BP 120/80; PULSE 56; PULSE 62; RESP 15; RESP 16; TEMP 36.5; TEMP 36.7
--- NOTE | 2024-02-18 13:22 | HBO.PN.PCM_ITS ---
History of Present Illness Date of Service: 02/18/24 Chief Complaint: Left distal posterior traumatic hematoma/ulcer History of Wound: 53 year old female presents to the wound healing center for evaluation of her left distal posterior leg skin flap that has some compromise after her surgery on 12/17/23 for painful scar contour deformity. She initially has some bruising on the top corner of the flap. The compromise is now about 10% on the edge of the flap. She has been placing collagen hydrogel to the areas of compromise, covering with gauze and wearing an JUAN JOSE wrap for compression. She has been encouraged to keep her foot elevated as much as possible. In November when the compromised flap was first evaluated, I spoke with her surgeon, Dr. Patel who recommended her being evaluated for the possibility of HBO therapy. Applied to [employer]'s comp for her to be seen and evaluated at the wound healing center. With the compromise on the edge of the flap, she would benefit from Hyperbaric Oxygen therapy to help with the healing of this skin flap. Surgery 12/17/23 -1. Surgical preparation left posterior leg with excisional debridement painful post-traumatic scar contour deformity. 2. Reconstruction with fasciocutaneous bilobed transposition skin flap (26 cm2) and placement Arthroflex decellularized dermis graft (6 cm2). The initially injury occurred while working at [employer] on 05/31/22. She developed a hematoma with overlying skin necrosis. She went to surgery on 07/05/22 where she underwent surgical preparation left posterior leg with incision and drainage and evacuation and excisional debridement traumatic hematoma abscess with overlying skin necrosis (18 cm2). Postoperatively she had aggressive wound care (VAC, Dakin's, and Silver dressings) at the Wound Center along with antibiotics when needed until the ulcer healed. She has residual pain in the back of her leg where the scar is. She also has persistent paresthesias on the side of her foot and on the plantar surface of her foot. The scar contour deformity has adhered to the underlying tendon, so whenever she moves her left leg, the scar tissue pulls on the tendon causing pain. At the time of surgery, the hematoma extended to the Achilles tendon. 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 She denies any other medical history. Surgery 07/05/22 - Surgical preparation left posterior leg with incision and drainage and evacuation and excisional debridement traumatic hematoma abscess with overlying skin necrosis (18 cm2). Progress of Wound: This is her first HBO session. Hyperbaric oxygen treatment was administered as per the facility's protocol at 2.0 JONO in 100% oxygen for 90 minutes without air breaks. The patient tolerated the hyperbaric oxygen therapy. She did complain of ear pain, especially on the right ear when decreasing the pressure. Upon emergence from the hyperbaric chamber, the patient's vital signs remained stable. Her left TM was bulging and mildly pink. The right TM was bulging and red behind the membrane. She complained of the right ear being painful. Objective Data Objective Data Vital Signs: Vital Signs Temp Pulse Resp BP 97.7 F L 56 L 16 120/80 02/18/24 09:38 02/18/24 09:38 02/18/24 09:38 02/18/24 09:38 Weight: 160 lb Body Mass Index (BMI) 28.3 Exam Physical Exam Const alert, oriented x3 and no apparent distress HEENT normocephalic HEENT Narrative: Left TM normal with good cone of light. Right TM good cone of light, but TM slightly dull. After her HBO therapy, the left TM was bulging and slightly pink. The right TM was bulging with red fluid present. Eyes PERRL Resp normal respiratory effort and clear to auscultation bilaterally Effort and Inspection: able to speak in complete sentences Cardio regular rate and regular rhythm Psych affect normal Appearance: well kempt Charges/Coding Wound Center CF Procedures HBO Supervision: [id number] Hyperbaric Oxygen; supervision Assessment/Plan Assessment/Plan (1) Contusion of left lower extremity: CODE(S): S80.12XA - Contusion of left lower leg, initial encounter (2) Abrasion of left lower extremity: CODE(S): S80.812A - Abrasion, left lower leg, initial encounter (3) Abscess of left lower extremity: CODE(S): L02.416 - Cutaneous abscess of left lower limb (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 - Factory as the place of occurrence of the external cause (5) Crushing injury of left lower leg, initial encounter: CODE(S): S87.82XA - Crushing injury of left lower leg, initial encounter (6) History of evacuation of hematoma: CODE(S): Z98.890 - Other specified postprocedural states (7) Painful scar: CODE(S): R52 - Pain, unspecified; L90.5 - Scar conditions and fibrosis of skin (8) Adherent scar: CODE(S): L90.5 - Scar conditions and fibrosis of skin (9) Partial necrosis of skin flap: CODE(S): T86.821 - Skin graft (allograft) (autograft) failure; I96 - Gangrene, not elsewhere classified (10) Complex regional pain syndrome type 1 of lower extremity: CODE(S): G90.529 - Complex regional pain syndrome I of unspecified lower limb QUALIFIERS: Laterality: left Qualified Code(s): G90.522 - Complex regional pain syndrome I of left lower limb PLAN: Plan She developed ear pain as the pressure was decreasing from the HBO chamber. Her right TM is mildly pink and bulging. The left TM is bulging with red fluid behind the TM. She would benefit from Tympanostomy tubes being placed. I phoned [facility] to see if they take [facility] before seeking approval from [facility] for the Tympanostomy tubes. Discussed all of this with the patient. Will hold out on further HBO therapy treatments until she can have placement of ear tubes. I do still believe that HBOT will benefit her flap. She continues to have 10% compromised on the one edge.
[2024-02-19 13:14] VITALS: BP 120/76; PULSE 86; RESP 18; TEMP 37.2; BMI 28.3
--- NOTE | 2024-02-19 16:47 | PCM.WC.PN ---
History of Present Illness Date of Service: 02/19/24 Chief Complaint: Left distal posterior traumatic hematoma/ulcer History of Wound: 53 year old female presents to the wound healing center for evaluation of her left distal posterior leg skin flap that has some compromise after her surgery on 12/17/23 for painful scar contour deformity. She initially has some bruising on the top corner of the flap. The compromise is now about 10% on the edge of the flap. She has been placing antibiotic ointment to the incision line and covering with gauze and wearing an ALEXIS wrap for compression. She has been encouraged to keep her foot elevated as much as possible. In November when the compromised flap was first evaluated, I spoke with her surgeon, Dr. Patel who recommended her being evaluated for the possibility of HBO therapy. Applied to [employer] for her to be seen and evaluated at the wound healing center. With the compromise on the edge of the flap, she would benefit from Hyperbaric Oxygen therapy to help with the healing of this skin flap. Surgery 12/17/23 -1. Surgical preparation left posterior leg with excisional debridement painful post-traumatic scar contour deformity. 2. Reconstruction with fasciocutaneous bilobed transposition skin flap (26 cm2) and placement Arthroflex decellularized dermis graft (6 cm2). The initially injury occurred while working at [employer] on 05/31/22. She developed a hematoma with overlying skin necrosis. She went to surgery on 07/05/22 where she underwent surgical preparation left posterior leg with incision and drainage and evacuation and excisional debridement traumatic hematoma abscess with overlying skin necrosis (18 cm2). Postoperatively she had aggressive wound care (VAC, Dakin's, and Silver dressings) at the Wound Center along with antibiotics when needed until the ulcer healed. She has residual pain in the back of her leg where the scar is. She also has persistent paresthesias on the side of her foot and on the plantar surface of her foot. The scar contour deformity has adhered to the underlying tendon, so whenever she moves her left leg, the scar tissue pulls on the tendon causing pain. At the time of surgery, the hematoma extended to the Achilles tendon. 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 She denies any other medical history. Surgery 07/05/22 - Surgical preparation left posterior leg with incision and drainage and evacuation and excisional debridement traumatic hematoma abscess with overlying skin necrosis (18 cm2). Today she denies any nausea, vomiting or diarrhea. Progress of Wound: Left posterior distal leg skin flap is intact but there are several areas of scabbing. The most proximal portion of the flap is where the compromise is most severe. There are also small areas of delayed healing on the most distal portion of the flap. The erythema has resolved. She continues to have significant hypersensitivity to the point that she does not allow it to be touched. She refuses to have any debridements to unroof the scabbing. Objective Data Objective Data Vital Signs: Vital Signs Temp Pulse Resp BP 98.9 F 86 18 120/76 02/19/24 13:14 02/19/24 13:14 02/19/24 13:14 02/19/24 13:14 Weight: 160 lb Body Mass Index (BMI) 28.3 Charges/Coding Procedures Integumentary [id number]: [id number] Global Visit Physical Exam Const alert, oriented x3 and no apparent distress General Appearance: cooperative HEENT normocephalic Head and Scalp: atraumatic Nose: external nose normal Tympanic Membrane: TM's normal bilaterally Eyes General Eye: normal appearance of both eyes Neck full ROM Lymph Lymphatic: no lymphedema noted Resp normal respiratory effort, normal air movement and clear to auscultation bilaterally Effort and Inspection: able to speak in complete sentences Cardio regular rate, regular rhythm, S1 normal heart sound, S2 normal heart sound and no murmurs GI normal to inspection, nondistended, normoactive bowel sounds, soft to palpation and non-tender Back/Spine normal ROM Extremity Extremity Narrative: Walks with a limp on left leg due to pain. Has +1 swelling left lower extremity. Has difficulty flexing and extending foot at ankle due to discomfort and scarring. Peripheral Pulses: Yes pulses 2+ throughout Skin Wound Narrative: Left posterior leg skin flap with some scabbing/compromise, especially on the most proximal portion of the flap. Hypersensitivity to touch. Neuro oriented x3 Psych thought process normal and affect normal Appearance: grossly normal Activity / Motor Behavior: appropriate eye contact Speech: normal speech Debridement Note Debridement Note No debridement was completed: No debridement was completed today (Patient refuses to have debridement or it to be touched) Post-Debridement Measurements and Additional Note: Post-Debridement Measurements/Treatment WC - Nurse 1 - General Ulcer Assessment Start: 02/03/24 14:11 Freq: Status: Active Protocol: TOMASZ Activity Type Activity Date Activity User E-sign Co-sign Detail Recorded Client Recorded Date Recorded By Document 02/03/24 14:29 DL ..25.7 02/03/24 14:33 DL Document 02/19/24 13:14 RB [id number] 02/19/24 13:15 RB 02/03/24 02/19/24 14:29 13:14 WC - Today's Visit Information Type of service Follow-up Visit Follow-up Visit (Physician/LOSS PREVENTION LEADER (Physician/LOSS PREVENTION LEADER ) ) Arrival Mode Ambulatory Ambulatory Transfer Assistance None None Patient Identification Verified (Name & Yes Yes ) Patient Requires Transmission-Based No No Precautions Height and Weight Body Mass Index (BMI) 28.3 28.3 BMI Classification Overweight Overweight Vital Signs Temperature (97.8 F-99.1 F) 97.5 F L 98.9 F Temperature Source Temporal Temporal Pulse Rate (60-100) 86 86 Pulse Location Monitor Monitor Respiratory Rate (12-18) 18 18 Respiratory rate source Observation Observation Blood Pressure (90/60-120/80) 130/79 H 120/76 Blood Pressure Mean (mm Hg) 96 90 Source Monitor Monitor Position Semi-Fowlers Blood Pressure Location Left Arm History Since Last Visit- (Skip if this is Patient's initial visit) Have you changed medications since your No No last visit? Any new allergies or adverse reactions No No Had a fall/change in ADL's that may No No increase risk of falls Signs or symptoms of abuse and/or No No neglect since last visit Have you been in the hospital since your No No last visit? Has dressing in place as prescribed Yes Yes Has compression in place as prescribed Yes Yes Has offloadiing in place as prescribed N/A No Experienced any changes in pain level or No No management Pain Scale: 0-10 Numeric Is Patient Pain Free? Yes Yes - Nurse 1 - General Ulcer Measurement Start: 02/03/24 14:11 Freq: Status: Active Protocol: Activity Type Activity Date Activity User E-sign Co-sign Detail Recorded Client Recorded Date Recorded By Document 02/03/24 14:29 DL [email or web address] 02/03/24 14:33 DL Document 02/19/24 13:14 RB [id number] 02/19/24 13:15 RB 02/03/24 02/19/24 14:29 13:14 Wound Center Nurse 1 #3- L LOWER CALF POST OP -Current Size (cm) - Length 4 0.1 -Current Size (cm) - Width 1.3 0.1 -Current Size (cm) - Depth 0.1 0.1 -Total Square Cm 5.2 0.01 -Photo Taken Yes Yes -Epithelialization Large 67-100% -Tunneling No -Undermining/Tunneling No -Circular Undermining No -Exudate Amt Small Medium -Exudate Type Serosanguineous Serosanguineous -Wound Margin Distinct, Distinct, Outline Outline Attached Attached -Granulation Amt Small (1-33%) Medium (34-66%) -Granulation Quality Slater-Marietta Slater-Marietta -Slough/Fibrin Yes -Necrosis Amt Small (1-33%) Medium (34-66%) -Necrotic Tissue Type Adherent Slough Adherent Slough -Structure Exposed N/A N/A -Texture (Nilsa-wound Skin Appearance) Scarring Assessed, Scarring -Moisture (Nilsa-wound Skin Appearance) No Abnormality Assessed -Color (Nilsa-wound Skin Appearance) No Abnormality Assessed -Temperature (Nilsa-wound Skin No Abnormality No Abnormality Appearance) (Pt Warm) (Pt Warm) -Tenderness on Palpation (Nilsa-wound No No Skin Appearance) -Ulcer Cleansing Soap and Water Wound Cleanser -Foul Odor after Cleansing No No -Anesthetic Used 5% Lidocaine 5% Lidocaine Gel Gel Lower Limb Edema Present Yes Left Calf (cm) 37 Left Ankle (cm) 20.8 WC - Nurse 2 - General Ulcer CM Notes Start: 02/03/24 14:11 Freq: Status: Active Protocol: Activity Type Activity Date Activity User E-sign Co-sign Detail Recorded Client Recorded Date Recorded By Document 02/03/24 14:37 DL [email or web address] 02/03/24 14:46 DL Document 02/19/24 13:24 [id number] 02/19/24 13:27 02/03/24 02/19/24 14:37 13:24 Wound Center Nurse 2 #3- L LOWER CALF POST OP -Time 13:24 -Correct Patient Yes Yes -Correct Side, Site, Position Yes Yes -Correct Procedure Yes -Procedure Performed Yes -Type of Procedure Debridement -Clinical Debridement Subcutaneous -Tissue Removed Subcutaneous -Post Debridement (cm) - Length 5.5 -Post Debridement (cm) - Width 3 -Post Debridement (cm) - Depth 0.1 -Total Square (Post) (cm) 16.5 -Wound/Ulcer Outcome Not Healed Not Healed -Ulcer Cleansing Rinsed/ Irrigated with Saline -Foul Odor after Cleansing No -Bleeding Controlled with NA -Treatment Response Procedure Tolerated Well -Offloading No -Debridement - Subq, 1st 20sq cm Yes -Wound Comment(s) 6 x 3.5 x 0.1 Pain Scale: 0-10 Numeric Is Patient Pain Free? Yes Yes - Nurse 3 - General Ulcer D/C NN Start: 02/03/24 14:11 Freq: Status: Active Protocol: Activity Type Activity Date Activity User E-sign Co-sign Detail Recorded Client Recorded Date Recorded By Document 02/03/24 14:46 DL [email or web address] 02/03/24 14:47 DL Edit Result 02/03/24 14:46 DL (1) 10.10.25.7 02/03/24 14:56 DL Document 02/19/24 13:41 DL [id number] 02/19/24 13:42 DL (1) #3- L LOWER CALF POST OP - Ulcer Cleansing => Rinsed/Irrigated => with Saline - Foul Odor after Cleansing => No - Primary Dressing Applied => NonAdherent => Contact Layer - Other Dressing => hydrogel - Primary Dressing Covered/Secured with => Dry Gauze & Roll => Gauze,Secured with => Tape - Other Covering => ALEXIS Treatment Response => Procedure => Tolerated Well Discharge Condition => Stable Ambulatory Status => Ambulatory Transportation => Private Auto 02/03/24 02/19/24 14:46 13:41 Wound Care Center Nurse 3 #3- L LOWER CALF POST OP -Ulcer Cleansing Rinsed/ Rinsed/ Irrigated with Irrigated with Saline Saline -Foul Odor after Cleansing No No -Primary Dressing Applied NonAdherent NonAdherent Contact Layer Contact Layer -Other Dressing hydrogel hydrogel -Primary Dressing Covered/Secured with Dry Gauze & Dry Gauze Roll Gauze, Secured with Tape -Other Covering ALEXIS alexis Treatment Response Procedure Procedure Tolerated Well Tolerated Well Pain Scale: 0-10 Numeric Is Patient Pain Free? 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 - Factory as the place of occurrence of the external cause (5) Crushing injury of left lower leg, initial encounter: CODE(S): S87.82XA - Crushing injury of left lower leg, initial encounter (6) History of evacuation of hematoma: CODE(S): Z98.890 - Other specified postprocedural states (7) Painful scar: CODE(S): R52 - Pain, unspecified; L90.5 - Scar conditions and fibrosis of skin (8) Adherent scar: CODE(S): L90.5 - Scar conditions and fibrosis of skin (9) Partial necrosis of skin flap: CODE(S): T86.821 - Skin graft (allograft) (autograft) failure; I96 - Gangrene, not elsewhere classified (10) Complex regional pain syndrome type 1 of lower extremity: CODE(S): G90.529 - Complex regional pain syndrome I of unspecified lower limb QUALIFIERS: Laterality: left Qualified Code(s): G90.522 - Complex regional pain syndrome I of left lower limb PLAN: Plan Patient evaluated at the wound healing center today. She has 10% compromise of her skin flap on her left distal posterior leg. She would benefit from HBO therapy. She has been approved for by [facility] to be evaluated at the wound healing center for a consultation for HBOT. She also has been approved for up to 30 treatments for HBOT, if necessary. I do feel that the HBOT would be beneficial to help with the compromised skin flap. Her chest xray and and EKG were normal. She had one HBO treatment, developed ear pain and now will need Tympanostomy tubes placed. Sent C9 to [facility] for approval before she has any further treatments. I do believe that the HBOT will benefit the area of compromise on her flap. There has not been any improvement over the past several weeks. She would also benefit from from some physical therapy to help with evaluation, treatment for range of motion, strengthening and pain management. With the amount of pain and inflammation she is experiencing in her left posterior leg she may be developing CRPS (Complex Regional Pain Syndrome). CRPS typically occurs after an injury or trauma. NSAID's may help with the pain associated with inflammation. Antidepressants at night to help her sleep can be helpful.? She is currently on Fluoxetine but that may need to be changed to something such as Amitriptyline or Cymbalta. Deprivation in sleep can increase the pain cycle, so her being able to have quality sleep, should help decrease her painful symptoms. To help with pain that could be due to spasm, I offered to start her on Procardia XL daily. She would need to take her blood pressure first and only take the medications if her SBP is greater than 110 mmHg. She is hesitant to start more medications. For the nerve pain she is experiencing, she is currently on Neurontin. It makes her sleepy, so she is hesitant to take it during the day (Started her on Gabapentin 100mg during the day and 300 mg at night, which she is tolerating well). Psychological and Behavioral Therapy may be useful as well for treating this condition. Alternative therapies in Pain Management can be useful as well. That is why I would like to her evaluated by pain management because she has disproportionate pain postoperatively, in addition to her pain never completely resolved from her initial injury. This would be better managed by someone who that is their specialty. Wound care - Collagen hydrogel topped with adaptic, covered with gauze daily. Wash with soap and water at the time of the dressing changes. Compression - ALEXIS wrap. Keep left leg elevated as much as possible to help reduce swelling. She is to continue the Gabapentin for her burning pain. She may also try tylenol or ibuprofen as directed on labels. She states that she does not take the Gabapentin often due to how tired it makes her. Follow up two weeks.
--- NOTE | 2024-02-20 14:10 | WC ---
PHOTO 02/19/24 LEFT POSTERIOR LE
--- NOTE | 2024-02-24 09:14 | PCM.HBO.PN ---
History of Present Illness Date of Service: 02/24/24 Chief Complaint: Left distal posterior traumatic hematoma/ulcer History of Wound: 53 year old female presents to the wound healing center for evaluation of her left distal posterior leg skin flap that has some compromise after her surgery on 12/17/23 for painful scar contour deformity. She initially has some bruising on the top corner of the flap. The compromise is now about 10% on the edge of the flap. She has been placing collagen hydrogel to the areas of compromise, covering with gauze and wearing an JUAN JOSE wrap for compression. She has been encouraged to keep her foot elevated as much as possible. In November when the compromised flap was first evaluated, I spoke with her surgeon, Dr. Patel who recommended her being evaluated for the possibility of HBO therapy. Applied to [employer] for her to be seen and evaluated at the wound healing center. With the compromise on the edge of the flap, she would benefit from Hyperbaric Oxygen therapy to help with the healing of this skin flap. Surgery 12/17/23 -1. Surgical preparation left posterior leg with excisional debridement painful post-traumatic scar contour deformity. 2. Reconstruction with fasciocutaneous bilobed transposition skin flap (26 cm2) and placement Arthroflex decellularized dermis graft (6 cm2). The initially injury occurred while working at [employer] on 05/31/22. She developed a hematoma with overlying skin necrosis. She went to surgery on 07/05/22 where she underwent surgical preparation left posterior leg with incision and drainage and evacuation and excisional debridement traumatic hematoma abscess with overlying skin necrosis (18 cm2). Postoperatively she had aggressive wound care (VAC, Dakin's, and Silver dressings) at the Wound Center along with antibiotics when needed until the ulcer healed. She has residual pain in the back of her leg where the scar is. She also has persistent paresthesias on the side of her foot and on the plantar surface of her foot. The scar contour deformity has adhered to the underlying tendon, so whenever she moves her left leg, the scar tissue pulls on the tendon causing pain. At the time of surgery, the hematoma extended to the Achilles tendon. 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 She denies any other medical history. Surgery 07/05/22 - Surgical preparation left posterior leg with incision and drainage and evacuation and excisional debridement traumatic hematoma abscess with overlying skin necrosis (18 cm2). She had Tympanostomy tubes placed 02/21/24. Progress of Wound: This is her 2nd HBOT session. She has been approved for up to 30 sessions through 03/27/24. Hyperbaric oxygen treatment was administered as per the facility's protocol at 2.0 JONO in 100% oxygen for 90 minutes without air breaks. The patient tolerated hyperbaric oxygen therapy without complaints or complications. Upon emergence from the hyperbaric chamber, his vitals remained stable and he was discharged in stable condition. Objective Data Objective Data Vital Signs: Vital Signs Temp Pulse Resp BP 98.9 F 86 18 120/76 02/19/24 13:14 02/19/24 13:14 02/19/24 13:14 02/19/24 13:14 Weight: 160 lb Body Mass Index (BMI) 28.3 Exam Physical Exam Const alert, oriented x3 and no apparent distress HEENT normocephalic HEENT Narrative: Tympanostomy tubes in place. Left ear is clear. Right ear with some old bloody drainage present, but the tube is visible. Eyes PERRL Resp normal respiratory effort and clear to auscultation bilaterally Effort and Inspection: able to speak in complete sentences Cardio regular rate and regular rhythm Psych affect normal Appearance: well kempt Charges/Coding Wound Center CF Procedures HBO Supervision: [id number] Hyperbaric Oxygen; supervision Assessment/Plan Assessment/Plan (1) Contusion of left lower extremity: CODE(S): S80.12XA - Contusion of left lower leg, initial encounter (2) Abrasion of left lower extremity: CODE(S): S80.812A - Abrasion, left lower leg, initial encounter (3) Abscess of left lower extremity: CODE(S): L02.416 - Cutaneous abscess of left lower limb (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 - Factory as the place of occurrence of the external cause (5) Crushing injury of left lower leg, initial encounter: CODE(S): S87.82XA - Crushing injury of left lower leg, initial encounter (6) History of evacuation of hematoma: CODE(S): Z98.890 - Other specified postprocedural states (7) Painful scar: CODE(S): R52 - Pain, unspecified; L90.5 - Scar conditions and fibrosis of skin (8) Adherent scar: CODE(S): L90.5 - Scar conditions and fibrosis of skin (9) Partial necrosis of skin flap: CODE(S): T86.821 - Skin graft (allograft) (autograft) failure; I96 - Gangrene, not elsewhere classified (10) Complex regional pain syndrome type 1 of lower extremity: CODE(S): G90.529 - Complex regional pain syndrome I of unspecified lower limb QUALIFIERS: Laterality: left Qualified Code(s): G90.522 - Complex regional pain syndrome I of left lower limb PLAN: Plan The patient appears to be tolerating hyperbaric oxygen therapy well, which will be continued as per her medical plan.
[2024-02-24 11:22] VITALS: BP 121/80; BP 123/69; PULSE 80; PULSE 90; RESP 13; RESP 14; TEMP 36.4; TEMP 36.9
--- NOTE | 2024-02-25 11:21 | PCM.HBO.PN ---
History of Present Illness Date of Service: 02/25/24 Chief Complaint: Left distal posterior traumatic hematoma/ulcer History of Wound: 53 year old female presents to the wound healing center for evaluation of her left distal posterior leg skin flap that has some compromise after her surgery on 12/17/23 for painful scar contour deformity. She initially has some bruising on the top corner of the flap. The compromise is now about 10% on the edge of the flap. She has been placing collagen hydrogel to the areas of compromise, covering with gauze and wearing an JUAN JOSE wrap for compression. She has been encouraged to keep her foot elevated as much as possible. In November when the compromised flap was first evaluated, I spoke with her surgeon, Dr. Patel who recommended her being evaluated for the possibility of HBO therapy. [place] [place] her to be seen and evaluated at the wound healing center. With the compromise on the edge of the flap, she would benefit from Hyperbaric Oxygen therapy to help with the healing of this skin flap. Surgery 12/17/23 -1. Surgical preparation left posterior leg with excisional debridement painful post-traumatic scar contour deformity. 2. Reconstruction with fasciocutaneous bilobed transposition skin flap (26 cm2) and placement Arthroflex decellularized dermis graft (6 cm2). The initially injury occurred while working at [employer] on 05/31/22. She developed a hematoma with overlying skin necrosis. She went to surgery on 07/05/22 where she underwent surgical preparation left posterior leg with incision and drainage and evacuation and excisional debridement traumatic hematoma abscess with overlying skin necrosis (18 cm2). Postoperatively she had aggressive wound care (VAC, Dakin's, and Silver dressings) at the Wound Center along with antibiotics when needed until the ulcer healed. She has residual pain in the back of her leg where the scar is. She also has persistent paresthesias on the side of her foot and on the plantar surface of her foot. The scar contour deformity has adhered to the underlying tendon, so whenever she moves her left leg, the scar tissue pulls on the tendon causing pain. At the time of surgery, the hematoma extended to the Achilles tendon. 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 She denies any other medical history. Surgery 07/05/22 - Surgical preparation left posterior leg with incision and drainage and evacuation and excisional debridement traumatic hematoma abscess with overlying skin necrosis (18 cm2). She had Tympanostomy tubes placed 02/21/24. Progress of Wound: This is her 3rd HBOT session. She has been approved for up to 30 sessions through 03/27/24. Hyperbaric oxygen treatment was administered as per the facility's protocol at 2.0 JONO in 100% oxygen for 90 minutes without air breaks. The patient tolerated hyperbaric oxygen therapy without complaints or complications. Upon emergence from the hyperbaric chamber, his vitals remained stable and he was discharged in stable condition. Objective Data Objective Data Vital Signs: Vital Signs Temp Pulse Resp BP 98.4 F 90 14 123/69 H 02/24/24 11:22 02/24/24 11:22 02/24/24 11:22 02/24/24 11:22 Weight: 160 lb Body Mass Index (BMI) 28.3 Exam Physical Exam Const alert, oriented x3 and no apparent distress HEENT normocephalic HEENT Narrative: Tympanostomy tubes in place. Left ear is clear. Right ear with some old bloody drainage present, but the tube is visible. It is clearer today than yesterday. Eyes PERRL Resp normal respiratory effort and clear to auscultation bilaterally Effort and Inspection: able to speak in complete sentences Cardio regular rate and regular rhythm Psych affect normal Appearance: well kempt Charges/Coding Wound Center CF Procedures HBO Supervision: [id number] Hyperbaric Oxygen; supervision Assessment/Plan Assessment/Plan (1) Contusion of left lower extremity: CODE(S): S80.12XA - Contusion of left lower leg, initial encounter (2) Abrasion of left lower extremity: CODE(S): S80.812A - Abrasion, left lower leg, initial encounter (3) Abscess of left lower extremity: CODE(S): L02.416 - Cutaneous abscess of left lower limb (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 - Factory as the place of occurrence of the external cause (5) Crushing injury of left lower leg, initial encounter: CODE(S): S87.82XA - Crushing injury of left lower leg, initial encounter (6) History of evacuation of hematoma: CODE(S): Z98.890 - Other specified postprocedural states (7) Painful scar: CODE(S): R52 - Pain, unspecified; L90.5 - Scar conditions and fibrosis of skin (8) Adherent scar: CODE(S): L90.5 - Scar conditions and fibrosis of skin (9) Partial necrosis of skin flap: CODE(S): T86.821 - Skin graft (allograft) (autograft) failure; I96 - Gangrene, not elsewhere classified (10) Complex regional pain syndrome type 1 of lower extremity: CODE(S): G90.529 - Complex regional pain syndrome I of unspecified lower limb QUALIFIERS: Laterality: left Qualified Code(s): G90.522 - Complex regional pain syndrome I of left lower limb PLAN: Plan The patient appears to be tolerating hyperbaric oxygen therapy well, which will be continued as per her medical plan.
[2024-02-25 11:26] VITALS: BP 120/84; BP 123/71; PULSE 91; PULSE 92; RESP 14; RESP 15; TEMP 36.9; TEMP 37
--- NOTE | 2024-02-26 12:08 | HBO.PN.PCM_ITS ---
History of Present Illness Date of Service: 02/26/24 Chief Complaint: Left distal posterior traumatic hematoma/ulcer History of Wound: 53 year old female presents to the wound healing center for evaluation of her left distal posterior leg skin flap that has some compromise after her surgery on 12/17/23 for painful scar contour deformity. She initially has some bruising on the top corner of the flap. The compromise is now about 10% on the edge of the flap. She has been placing collagen hydrogel to the areas of compromise, covering with gauze and wearing an JUAN JOSE wrap for compression. She has been encouraged to keep her foot elevated as much as possible. In November when the compromised flap was first evaluated, I spoke with her surgeon, Dr. Patel who recommended her being evaluated for the possibility of HBO therapy. [place] [place] her to be seen and evaluated at the wound healing center. With the compromise on the edge of the flap, she would benefit from Hyperbaric Oxygen therapy to help with the healing of this skin flap. Surgery 12/17/23 -1. Surgical preparation left posterior leg with excisional debridement painful post-traumatic scar contour deformity. 2. Reconstruction with fasciocutaneous bilobed transposition skin flap (26 cm2) and placement Arthroflex decellularized dermis graft (6 cm2). The initially injury occurred while working at [employer] on 05/31/22. She developed a hematoma with overlying skin necrosis. She went to surgery on 07/05/22 where she underwent surgical preparation left posterior leg with incision and drainage and evacuation and excisional debridement traumatic hematoma abscess with overlying skin necrosis (18 cm2). Postoperatively she had aggressive wound care (VAC, Dakin's, and Silver dressings) at the Wound Center along with antibiotics when needed until the ulcer healed. She has residual pain in the back of her leg where the scar is. She also has persistent paresthesias on the side of her foot and on the plantar surface of her foot. The scar contour deformity has adhered to the underlying tendon, so whenever she moves her left leg, the scar tissue pulls on the tendon causing pain. At the time of surgery, the hematoma extended to the Achilles tendon. 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 She denies any other medical history. Surgery 07/05/22 - Surgical preparation left posterior leg with incision and drainage and evacuation and excisional debridement traumatic hematoma abscess with overlying skin necrosis (18 cm2). She had Tympanostomy tubes placed 02/21/24. Progress of Wound: This is her 4th HBOT session. She has been approved for up to 30 sessions through 03/27/24. Hyperbaric oxygen treatment was administered as per the facility's protocol at 2.0 JONO in 100% oxygen for 90 minutes without air breaks. The patient tolerated hyperbaric oxygen therapy without complaints or complications. Upon emergence from the hyperbaric chamber, his vitals remained stable and he was discharged in stable condition. Objective Data Objective Data Vital Signs: Vital Signs Temp Pulse Resp BP 98.6 F 92 15 123/71 H 02/25/24 11:26 02/25/24 11:26 02/25/24 11:26 02/25/24 11:26 Weight: 160 lb Body Mass Index (BMI) 28.3 Exam Physical Exam Const alert, oriented x3 and no apparent distress HEENT normocephalic HEENT Narrative: Tympanostomy tubes in place and visible. Eyes PERRL Resp normal respiratory effort and clear to auscultation bilaterally Effort and Inspection: able to speak in complete sentences Cardio regular rate and regular rhythm Psych affect normal Appearance: well kempt Charges/Coding Wound Center CF Procedures HBO Supervision: [id number] Hyperbaric Oxygen; supervision Assessment/Plan Assessment/Plan (1) Contusion of left lower extremity: CODE(S): S80.12XA - Contusion of left lower leg, initial encounter (2) Abrasion of left lower extremity: CODE(S): S80.812A - Abrasion, left lower leg, initial encounter (3) Abscess of left lower extremity: CODE(S): L02.416 - Cutaneous abscess of left lower limb (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 - Factory as 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 place of occurrence of the external cause (5) Crushing injury of left lower leg, initial encounter: CODE(S): S87.82XA - Crushing injury of left lower leg, initial encounter (6) History of evacuation of hematoma: CODE(S): Z98.890 - Other specified postprocedural states (7) Painful scar: CODE(S): R52 - Pain, unspecified; L90.5 - Scar conditions and fibrosis of skin (8) Adherent scar: CODE(S): L90.5 - Scar conditions and fibrosis of skin (9) Partial necrosis of skin flap: CODE(S): T86.821 - Skin graft (allograft) (autograft) failure; I96 - Gangrene, not elsewhere classified (10) Complex regional pain syndrome type 1 of lower extremity: CODE(S): G90.529 - Complex regional pain syndrome I of unspecified lower limb QUALIFIERS: Laterality: left Qualified Code(s): G90.522 - Complex regional pain syndrome I of left lower limb PLAN: Plan The patient appears to be tolerating hyperbaric oxygen therapy well, which will be continued as per her medical plan.
[2024-02-26 13:36] VITALS: BP 109/74; BP 123/76; PULSE 66; PULSE 79; RESP 14; TEMP 36.6; TEMP 36.9
--- NOTE | 2024-02-27 12:06 | PCM.HBO.PN ---
History of Present Illness Date of Service: 02/27/24 Chief Complaint: Left distal posterior traumatic hematoma/ulcer History of Wound: 53 year old female presents to the wound healing center for evaluation of her left distal posterior leg skin flap that has some compromise after her surgery on 12/17/23 for painful scar contour deformity. She initially has some bruising on the top corner of the flap. The compromise is now about 10% on the edge of the flap. She has been placing collagen hydrogel to the areas of compromise, covering with gauze and wearing an JUAN JOSE wrap for compression. She has been encouraged to keep her foot elevated as much as possible. In November when the compromised flap was first evaluated, I spoke with her surgeon, Dr. Patel who recommended her being evaluated for the possibility of HBO therapy. [place] [employer] for her to be seen and evaluated at the wound healing center. With the compromise on the edge of the flap, she would benefit from Hyperbaric Oxygen therapy to help with the healing of this skin flap. Surgery 12/17/23 -1. Surgical preparation left posterior leg with excisional debridement painful post-traumatic scar contour deformity. 2. Reconstruction with fasciocutaneous bilobed transposition skin flap (26 cm2) and placement Arthroflex decellularized dermis graft (6 cm2). The initially injury occurred while working at [employer] on 05/31/22. She developed a hematoma with overlying skin necrosis. She went to surgery on 07/05/22 where she underwent surgical preparation left posterior leg with incision and drainage and evacuation and excisional debridement traumatic hematoma abscess with overlying skin necrosis (18 cm2). Postoperatively she had aggressive wound care (VAC, Dakin's, and Silver dressings) at the Wound Center along with antibiotics when needed until the ulcer healed. She has residual pain in the back of her leg where the scar is. She also has persistent paresthesias on the side of her foot and on the plantar surface of her foot. The scar contour deformity has adhered to the underlying tendon, so whenever she moves her left leg, the scar tissue pulls on the tendon causing pain. At the time of surgery, the hematoma extended to the Achilles tendon. 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 She denies any other medical history. Surgery 07/05/22 - Surgical preparation left posterior leg with incision and drainage and evacuation and excisional debridement traumatic hematoma abscess with overlying skin necrosis (18 cm2). She had Tympanostomy tubes placed 02/21/24. Progress of Wound: This is her 5th HBOT session. She has been approved for up to 30 sessions through 03/27/24. Hyperbaric oxygen treatment was administered as per the facility's protocol at 2.0 JONO in 100% oxygen for 90 minutes without air breaks. The patient tolerated hyperbaric oxygen therapy without complaints or complications. Upon emergence from the hyperbaric chamber, his vitals remained stable and he was discharged in stable condition. Objective Data Objective Data Vital Signs: Vital Signs Temp Pulse Resp BP 98.4 F 79 14 123/76 H 02/26/24 13:36 02/26/24 13:36 02/26/24 13:36 02/26/24 13:36 Weight: 160 lb Body Mass Index (BMI) 28.3 Exam Physical Exam Const alert, oriented x3 and no apparent distress HEENT normocephalic HEENT Narrative: Tympanostomy tubes in place and visible. Eyes PERRL Resp normal respiratory effort and clear to auscultation bilaterally Effort and Inspection: able to speak in complete sentences Cardio regular rate and regular rhythm Psych affect normal Appearance: well kempt Charges/Coding Wound Center CF Procedures HBO Supervision: [id number] Hyperbaric Oxygen; supervision (58 modifier) Assessment/Plan Assessment/Plan (1) Contusion of left lower extremity: CODE(S): S80.12XA - Contusion of left lower leg, initial encounter (2) Abrasion of left lower extremity: CODE(S): S80.812A - Abrasion, left lower leg, initial encounter (3) Abscess of left lower extremity: CODE(S): L02.416 - Cutaneous abscess of left lower limb (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 - Factory as the place of occurrence of the external cause (5) Crushing injury of left lower leg, initial encounter: CODE(S): S87.82XA - Crushing injury of left lower leg, initial encounter (6) History of evacuation of hematoma: CODE(S): Z98.890 - Other specified postprocedural states (7) Painful scar: CODE(S): R52 - Pain, unspecified; L90.5 - Scar conditions and fibrosis of skin (8) Adherent scar: CODE(S): L90.5 - Scar conditions and fibrosis of skin (9) Partial necrosis of skin flap: CODE(S): T86.821 - Skin graft (allograft) (autograft) failure; I96 - Gangrene, not elsewhere classified (10) Complex regional pain syndrome type 1 of lower extremity: CODE(S): G90.529 - Complex regional pain syndrome I of unspecified lower limb QUALIFIERS: Laterality: left Qualified Code(s): G90.522 - Complex regional pain syndrome I of left lower limb PLAN: Plan The patient appears to be tolerating hyperbaric oxygen therapy well, which will be continued as per her medical plan.
[2024-02-27 12:37] VITALS: BP 110/72; BP 117/68; PULSE 64; PULSE 74; RESP 12; RESP 15; TEMP 36.6; TEMP 37.1
--- NOTE | 2024-02-28 09:17 | PCM.HBO.PN ---
History of Present Illness Date of Service: 02/28/24 Chief Complaint: Left distal posterior traumatic hematoma/ulcer History of Wound: 53 year old female presents to the wound healing center for evaluation of her left distal posterior leg skin flap that has some compromise after her surgery on 12/17/23 for painful scar contour deformity. She initially has some bruising on the top corner of the flap. The compromise is now about 10% on the edge of the flap. She has been placing collagen hydrogel to the areas of compromise, covering with gauze and wearing an JUAN JOSE wrap for compression. She has been encouraged to keep her foot elevated as much as possible. In November when the compromised flap was first evaluated, I spoke with her surgeon, Dr. Patel who recommended her being evaluated for the possibility of HBO therapy. [place] her to be seen and evaluated at the wound healing center. With the compromise on the edge of the flap, she would benefit from Hyperbaric Oxygen therapy to help with the healing of this skin flap. Surgery 12/17/23 -1. Surgical preparation left posterior leg with excisional debridement painful post-traumatic scar contour deformity. 2. Reconstruction with fasciocutaneous bilobed transposition skin flap (26 cm2) and placement Arthroflex decellularized dermis graft (6 cm2). The initially injury occurred while working at [employer] on 05/31/22. She developed a hematoma with overlying skin necrosis. She went to surgery on 07/05/22 where she underwent surgical preparation left posterior leg with incision and drainage and evacuation and excisional debridement traumatic hematoma abscess with overlying skin necrosis (18 cm2). Postoperatively she had aggressive wound care (VAC, Dakin's, and Silver dressings) at the Wound Center along with antibiotics when needed until the ulcer healed. She has residual pain in the back of her leg where the scar is. She also has persistent paresthesias on the side of her foot and on the plantar surface of her foot. The scar contour deformity has adhered to the underlying tendon, so whenever she moves her left leg, the scar tissue pulls on the tendon causing pain. At the time of surgery, the hematoma extended to the Achilles tendon. 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 She denies any other medical history. Surgery 07/05/22 - Surgical preparation left posterior leg with incision and drainage and evacuation and excisional debridement traumatic hematoma abscess with overlying skin necrosis (18 cm2). She had Tympanostomy tubes placed 02/21/24. Progress of Wound: This is her 6th HBOT session. She has been approved for up to 30 sessions through 03/27/24. Hyperbaric oxygen treatment was administered as per the facility's protocol at 2.0 JONO in 100% oxygen for 90 minutes without air breaks. The patient tolerated hyperbaric oxygen therapy without complaints or complications. Upon emergence from the hyperbaric chamber, his vitals remained stable and he was discharged in stable condition. Objective Data Objective Data Vital Signs: Vital Signs Temp Pulse Resp BP 98.8 F 74 12 110/72 02/27/24 12:37 02/27/24 12:37 02/27/24 12:37 02/27/24 12:37 Weight: 160 lb Body Mass Index (BMI) 28.3 Exam Physical Exam Const alert, oriented x3 and no apparent distress HEENT normocephalic HEENT Narrative: Tympanostomy tubes in place and visible. Eyes PERRL Resp normal respiratory effort and clear to auscultation bilaterally Effort and Inspection: able to speak in complete sentences Cardio regular rate and regular rhythm Psych affect normal Appearance: well kempt Charges/Coding Wound Center CF Procedures HBO Supervision: [id number] Hyperbaric Oxygen; supervision (58 modifier) Assessment/Plan Assessment/Plan (1) Contusion of left lower extremity: CODE(S): S80.12XA - Contusion of left lower leg, initial encounter (2) Abrasion of left lower extremity: CODE(S): S80.812A - Abrasion, left lower leg, initial encounter (3) Abscess of left lower extremity: CODE(S): L02.416 - Cutaneous abscess of left lower limb (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 - Factory as the place of occurrence of the external cause (5) Crushing injury of left lower leg, initial encounter: CODE(S): S87.82XA - Crushing injury of left lower leg, initial encounter (6) History of evacuation of hematoma: CODE(S): Z98.890 - Other specified postprocedural states (7) Painful scar: CODE(S): R52 - Pain, unspecified; L90.5 - Scar conditions and fibrosis of skin (8) Adherent scar: CODE(S): L90.5 - Scar conditions and fibrosis of skin (9) Partial necrosis of skin flap: CODE(S): T86.821 - Skin graft (allograft) (autograft) failure; I96 - Gangrene, not elsewhere classified (10) Complex regional pain syndrome type 1 of lower extremity: CODE(S): G90.529 - Complex regional pain syndrome I of unspecified lower limb QUALIFIERS: Laterality: left Qualified Code(s): G90.522 - Complex regional pain syndrome I of left lower limb PLAN: Plan The patient appears to be tolerating hyperbaric oxygen therapy well, which will be continued as per her medical plan.
[2024-02-28 11:21] VITALS: BP 111/66; BP 112/68; PULSE 68; PULSE 80; RESP 16; TEMP 36.2; TEMP 36.7
== END 2024-02-29 23:59 | disposition home or self-care (01) ==
LOC: WC 09:00
PROVIDERS: PCP Student in an Organized Health Care Education/Training Program; Referring Provider Nurse Practitioner Family; Visit Provider Nurse Practitioner Family
DX: T86.821 Skin graft (allograft) (autograft) failure (principal); I96 Gangrene, not elsewhere classified; L02.416 Cutaneous abscess of left lower limb; G90.522 Complex regional pain syndrome I of left lower limb; S80.812A Abrasion, left lower leg, initial encounter; L90.5 Scar conditions and fibrosis of skin; Y83.2 Surgical operation with anastomosis, bypass or graft as the cause of abnormal reaction of the patient, or of later complication, without mention of misadventure at the time of the procedure; S87.82XA Crushing injury of left lower leg, initial encounter
CPT/HCPCS: 11042; 71046; 93005; 99183; 99212; 99213; G0277; G0463

== ENCOUNTER 2024-03-05 09:00 | Outpatient (RCR) | payer SELFPAY ==
[2024-03-03 11:50] VITALS: BP 135/88; PULSE 77; RESP 12; TEMP 36.8
[2024-03-05 11:13] VITALS: BP 114/75; BP 118/78; PULSE 64; PULSE 79; RESP 13; RESP 14; TEMP 36.7; TEMP 36.9
== END 2024-03-30 23:59 | disposition home or self-care (01) ==
LOC: WC 09:00
PROVIDERS: PCP Student in an Organized Health Care Education/Training Program; Referring Provider Nurse Practitioner Family; Visit Provider Nurse Practitioner Family
DX: T86.821 Skin graft (allograft) (autograft) failure (principal); I96 Gangrene, not elsewhere classified; L02.416 Cutaneous abscess of left lower limb; S80.12XS Contusion of left lower leg, sequela; S87.82XS Crushing injury of left lower leg, sequela; X58.XXXS Exposure to other specified factors, sequela; G90.522 Complex regional pain syndrome I of left lower limb; L90.5 Scar conditions and fibrosis of skin; Z79.899 Other long term (current) drug therapy
CPT/HCPCS: 99183; G0277

== ENCOUNTER 2024-03-18 13:15 | Outpatient (RCR) | payer OTHER, SELFPAY ==
[2024-03-01 00:22] VITALS: BP 111/66; BP 112/68; BP 115/84; PULSE 68; PULSE 80; PULSE 84; RESP 16; TEMP 35.5; TEMP 36.2; TEMP 36.7; BMI 28.3
[2024-03-04 15:18] VITALS: BP 112/78; BP 97/63; PULSE 82; PULSE 86; RESP 13; RESP 14; TEMP 36.8; TEMP 37.1
[2024-03-04 15:28] VITALS: BP 122/74; PULSE 83; RESP 16; TEMP 35.8; BMI 28.3
[2024-03-18 13:34] VITALS: BP 112/69; PULSE 86; RESP 16; TEMP 36.1; BMI 28.3
== END 2024-03-18 14:12 | disposition home or self-care (01) ==
LOC: WC 13:15
PROVIDERS: PCP Student in an Organized Health Care Education/Training Program; Referring Provider Nurse Practitioner Family; Visit Provider Nurse Practitioner Family
DX: T86.821 Skin graft (allograft) (autograft) failure (principal); I96 Gangrene, not elsewhere classified; L02.416 Cutaneous abscess of left lower limb; L90.5 Scar conditions and fibrosis of skin; G90.522 Complex regional pain syndrome I of left lower limb; S80.12XS Contusion of left lower leg, sequela; S87.82XS Crushing injury of left lower leg, sequela; X58.XXXS Exposure to other specified factors, sequela; Z79.899 Other long term (current) drug therapy
CPT/HCPCS: 99183; 99213; G0277; G0463

== ENCOUNTER 2024-04-17 09:30 | Outpatient (RCR) | payer OTHER, SELFPAY | END 2024-04-17 19:00 | disposition home or self-care (01) | LOC: PT 09:30 | PROVIDERS: PCP Student in an Organized Health Care Education/Training Program; Referring Provider Nurse Practitioner Family; Visit Provider Nurse Practitioner Family | DX: S80.12XD Contusion of left lower leg, subsequent encounter (principal); L02.416 Cutaneous abscess of left lower limb; S87.82XD Crushing injury of left lower leg, subsequent encounter; G90.522 Complex regional pain syndrome I of left lower limb; G89.18 Other acute postprocedural pain; S80.812D Abrasion, left lower leg, subsequent encounter | CPT/HCPCS: 97035; 97110; 97140; 97162; 97530 ==

== ENCOUNTER → 2024-08-05 | Outpatient (CLI) | payer BC, SELFPAY ==
--- NOTE | 2024-08-05 14:42 | NEURO ---
NCS and/or EMG Patient Report Ordering Doctor: Jey Lake DATE OF SERVICE: 08/05/24 Prerna presents for electrodiagnostic testing of the lower limbs. She reports pain in the left lower leg secondary to crush injury in May 2022. Electrodiagnostic Findings: Peroneal motor response demonstrates normal distal latency, amplitude and conduction velocity bilaterally. Tibial motor response within normal limits bilaterally. Normal right sural response. Normal superficial peroneal response bilaterally. Absent left sural response. Normal H?reflex bilaterally. F?waves are normal bilaterally. Needle EMG testing was performed in the lower limbs. All muscles tested showed no evidence of denervation with normal motor unit action potentials. Electrodiagnostic impression: This is an abnormal study. 1. 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 2. No electrodiagnostic evidence is noted for peripheral polyneuropathy. 3. No electrodiagnostic evidence is noted for lumbosacral radiculopathy. Multi Select Codes Neurology Neurology Interp Codes: 42828-30 Musc test done w/n test comp (interp) (2) and 55632-95 Nrv cndj test 9-10 studies (interp)
== END | disposition home or self-care (01) ==
LOC: PSN 06:45
PROVIDERS: PCP Student in an Organized Health Care Education/Training Program; Referring Provider Anesthesiology Pain Medicine; Visit Provider Anesthesiology Pain Medicine
DX: S89.92XA Unspecified injury of left lower leg, initial encounter (principal)
CPT/HCPCS: 95886; 95911